=== PATIENT | male | born 1945 | race Caucasian/White ===

== ENCOUNTER 2020-07-05 08:39 | Inpatient (IN) | payer OTHER ==
[~2020-07-05] VITALS: Ht 180.3 cm; Wt 140.4 kg
--- NOTE | ~2020-07-05 | HC ---
[facility] [place] [address] [place] [address] CONSULTATION Name: CARRIE LESTER Room #: 213-P ADM IN M.R.#: [id number] Admission: 07/05/20 Attend Phys: Abdirashid Gardner MD Discharge: Date of : 46 Report #: [id number] THIS REPORT FOR: cc: Monroe Pacheco,Robles Burgos MD ~ CC: Monroe Gardner DATE OF SERVICE: 07/09/2020 REASON FOR CONSULTATION: Sacral wound. ASSESSMENT: Stage 3 sacral pressure ulcer. RECOMMENDATIONS: 1. Thank you for the consultation. I will follow along. 2. Discussed wound care with the wound team. The wound bed is not grossly gangrenous or necrotic and overall looks pretty good. Given that the patient is starting to improve and work with physical therapy, I think it would be best to avoid general anesthesia and the surgery. If the wound worsens or concerns of infection develop, I am happy to debride it if consulting teams feel strongly about that. HISTORY OF PRESENT ILLNESS: The patient is a very pleasant 75-year-old gentleman who was hospitalized at [place] following a prolonged hospitalization elsewhere. The patient developed a sacral ulcer in the process. General Surgery was consulted for evaluation. PAST MEDICAL HISTORY: 1. Recent acute respiratory distress syndrome. 2. Recent COVID-19 pneumonia. 3. Chronic obstructive pulmonary disease. 4. Obesity. 5. Sepsis. 6. Anemia. 7. Hyperlipidemia. 8. Hypokalemia. 9. Obstructive sleep apnea. 10. Hypertension. 11. Coronary artery disease. 12. Deep venous thrombosis. 13. Gastroparesis. 14. History of renal failure. 15. Urinary tract infection. [facility] [address] [place] [address] CONSULTATION Name: CARRIE LESTER Room #: 213-P ADM IN M.Aaron.#: [id number] Admission: 07/05/20 Attend Phys: Abdirashid Gardner MD Discharge: Date of : 46 Report #: [id number] PAST SURGICAL HISTORY: Unobtainable. SOCIAL HISTORY: Unobtainable. FAMILY HISTORY: Unobtainable. REVIEW OF SYSTEMS: Unobtainable. PHYSICAL EXAMINATION: VITAL SIGNS: Temperature 36.7, pulse 79, respiratory rate 18, blood pressure 134/79, pulse ox 96%. GENERAL: No apparent distress, alert. HEENT: PERRLA, EOMI, MMM, NCAT NECK: Supple. No LAD. CARDIOVASCULAR: Regular rhythm and rate. Hemodynamically stable. Normal capillary refill. Regular rhythm and rate. Hemodynamically stable. Normal capillary refill. PULMONARY: Nonlabored. Clear to auscultation bilaterally ABDOMEN: Soft, nontender to palpation, no guarding, no rigidity, no rebound tenderness, no hernias. EXTREMITIES: Calves soft, nontender, no edema. SKIN: The patient has a large sacral wound, stage 3, with a relatively clean wound bed with minimal fibrinous debris and minimal gangrenous tissue. The surrounding skin is clean and dry without erythema or exudate. PSYCHIATRIC: Normal mood and affect Normal mood and affect. NEUROLOGICAL: Grossly intact. CN II-XII grossly intact. MUSCULOSKELETAL: 5/5 strength in upper extremities and lower extremities bilaterally. LYMPHATICS: No cervical, inguinal, or supraclavicular lymphadenopathy. LABORATORY DATA: White blood count 10.3, hemoglobin 9.4, platelets 157. INR 1.1. IMAGING: CT of the pelvis. Impression: Large decubitus wound/ulcer and phlegmon overlying the lower rectum and coccyx as detailed above without definitive osteomyelitis. By: 1530 1704 Robles Steven MD /nt
--- NOTE | ~2020-07-05 | HC ---
[facility] [address] [place] [address] CONSULTATION Name: CARRIE LESTER Room #: [facility] ADM IN M.R.#: [id number] Admission: 07/05/20 Attend Phys: Abdirashid Gardner MD Discharge: Date of : 46 Report #: [id number] THIS REPORT FOR: cc: Monroe Pacheco,Ezequiel Barnes MD ~ CC: Monroe Gardner DATE OF SERVICE: 07/06/2020 INFECTIOUS DISEASE CONSULTATION ATTENDING PHYSICIAN: Dr. Gardner. REASON FOR EVALUATION: Gram-positive cocci, septicemia. HISTORY OF PRESENT ILLNESS: Chart reviewed, patient examined. This is a 75-year-old gentleman with very significant disability, who has actually been ill, dating back to March, he did experience coronavirus illness, became quite sick. He has been essentially bedbound since that time according to him. He then developed decubitus ulcers, apparently has been hospitalized at various places as well. He presented with febrile illness including dyspnea. Influenza antigen testing was negative. He was found to have an elevated lactic acid, which was peaked at 5.4 and blood culture is now positive with Gram-positive cocci and underwent imaging, which results are pending. He ____ lucid. He is normally on baseline oxygen at 2 liters per nasal cannula and 3 liters at night with a CPAP and started on empiric therapy with aztreonam, levofloxacin and vancomycin. Overall, he does state he feels better than his admission. ALLERGIES: BLEACH, PENICILLIN, STATINS, LISINOPRIL, HYDROCODONE, ACETAMINOPHEN, CEFTRIAXONE, ERYTHROMYCIN, MEPERIDINE. CURRENT MEDICATIONS: Include insulin glargine, insulin lispro, vancomycin, Levaquin, montelukast, pantoprazole, apixaban, aztreonam, methylprednisolone, gabapentin, quetiapine, trazodone. PAST MEDICAL HISTORY: As described above, diabetes mellitus type 2, insulin requiring. History of COPD, chronic anemia, hyperlipidemia, obstructive sleep apnea, hypertension, has known vasculopathy, coronary artery disease, previous history of DVT, gastroparesis, renal insufficiency, COVID infection in March of this year. SOCIAL HISTORY: He is , nonsmoker. Occasional ethanol. No illicit drug use. [address] [address] CONSULTATION Name: CARRIE LESTER Room #: 354-P [facility] IN M.R.#: [id number] Admission: 07/05/20 Attend Phys: Abdirashid Gardner MD Discharge: Date of : 46 Report #: [id number] FAMILY HISTORY: Noncontributory. REVIEW OF SYSTEMS: Otherwise, unremarkable 10-point review of systems. PHYSICAL EXAMINATION: GENERAL: Appears chronically ill, undernourished. He is pleasant, cooperative, in deso-tf-tywvxwre distress. VITAL SIGNS: Temperature 97.1, pulse 97, respirations 18, blood pressure 128/76. SKIN: Warm, dry, no rashes. HEENT: Normocephalic. Extraocular muscles intact. NECK: Supple. He has got nasal cannula oxygen in place. LUNGS: Diminished overall, few scattered coarse breath sounds. HEART: Regular. Borderline tachycardic. I do not appreciate a murmur. ABDOMEN: Obese, soft, nontender. There are no peritoneal signs. GENITOURINARY AND RECTAL: Deferred. LABORATORY DATA: As described above, negative coronavirus testing. Lactic acid peaked at 5.4, repeat this morning 3.1. Blood cultures 2/2 with gram-positive cocci, otherwise not more clarified. Urinary antigen for Legionella and pneumococcus were negative. Procalcitonin mildly elevated at 2.14. ABGs: pH 7.463, pCO2 of 32.6, pO2 of 105.6 on 5 liters. CBC: White count of 33.5, H and H 13.6 and 41.6, platelets of 271 and 14% monocytes. Urinalysis; 0-5 white cells. Influenza antigen was negative. ASSESSMENT AND PLAN: Gram-positive cocci, septicemia. The patient is certainly at risk for infection including skin and soft tissue given his wounds as well as a possible pneumonic source, may well be able to define the site based on identification of the organism. He is on reasonable coverage, ____ good Staph and strep coverage, which we expect would be most likely. At this point, he is somewhat improved. We will continue supportive measures including supporting hydration. We will add incentive spirometry. Wound care as prescribed. We will have to med optimize his nutritional status. Maybe, he would benefit from increased physical therapy, etc. Thank you, we will follow. By: 1101 1218 Ezequiel Hilliard MD /nt
[2020-07-05 08:41] VITALS: BP 117/69
[2020-07-05 09:28] LABS: PLATELET COUNT 271 thou/uL (150-400); RBC 4.54 mil/uL (4.50-6.00); URINE BILIRUBIN NEGATIVE (Negative); URINE BLOOD NEGATIVE (Negative); URINE CLARITY CLEAR; URINE COLOR YELLOW; URINE GLUCOSE-RANDOM* TRACE (Negative); URINE KETONES NEGATIVE (Negative); URINE LEUKOCYTES-REFLEX NEGATIVE (Negative); URINE NITRITE-REFLEX NEGATIVE (Negative); URINE PROTEIN (DIPSTICK) 1+ (Negative); URINE UROBILINOGEN 0.2 E.U./dl (0.2-1.0)
[2020-07-05 09:30] LABS: HEMATOCRIT 41.6 % (42.0-52.0); HEMOGLOBIN 13.6 gm/dL (14.0-18.0); MCHC 32.8 g/dL (28.0-37.0); MCV 91.7 fL (80.0-100.0); RDW 17.1 % (10.5-14.5); WBC 33.6 thou/uL (4.0-11.0)
[2020-07-05 09:34] LABS: CALCIUM 9.4 mg/dL (8.5-10.1); CREATININE 1.8 mg/dL (0.7-1.3); POTASSIUM 3.6 mmol/L (3.5-5.1)
[2020-07-05 09:40] LABS: DIRECT BILIRUBIN 0.1 mg/dL (<0.1-0.2); TOTAL BILIRUBIN 0.5 mg/dL (0.2-1.0); TOTAL PROTEIN 7.1 g/dL (6.4-8.2)
[2020-07-05 09:43] LABS: CASTS None Seen /LPF (None Seen); SQUAMOUS 0-3 Few /LPF (0-3)
[2020-07-05 09:44] LABS: BACTERIA-REFLEX None Seen /HPF (None Seen); CRYSTALS None Seen /LPF (None Seen); MUCUS 0-3 Light strn/LPF (None Seen); URINE RBC None Seen /HPF (0-2); URINE WBC-REFLEX 0-5 Rare /HPF (0-5)
[2020-07-05 10:27] LABS: ABSOLUTE NEUTROPHILS 24.9 thou/uL (1.4-8.2); METAMYELOCYTES 1 %
[2020-07-05 10:28] LABS: ANISOCYTOSIS 1+
[2020-07-05 11:20] LABS: BE(vivo) -0.2 mmol/L (-2 to +3); HCO3 22.8 mmol/L (22.0-26.0); PCO2 32.6 mmHg (35.0-45.0); PO2 105.6 mmHg (80.0-100.0); pH 7.463 (7.360-7.450); sO2 98.1 % (92.0-98.0)
[2020-07-05 15:03] VITALS: BP 105/58
[2020-07-05 16:20] VITALS: BP 95/59
[2020-07-05] MEDS ORDERED: ELIQUIS5 MG PO (17:33)
[2020-07-05] MEDS ORDERED: VITAMIN C500 M1 PO (17:34)
[2020-07-05] MEDS ORDERED: ARTIFICIAL TEAR1510 OPHTHALMIC (17:34)
[2020-07-05] MEDS ORDERED: BISACODYL10 MG RECTAL (17:35)
[2020-07-05] MEDS ORDERED: VITAMIN D310 MC3 PO (17:40)
[2020-07-05] MEDS ORDERED: COMBIVENT RESPIM4 GM INH (17:41)
[2020-07-05] MEDS ORDERED: EPIPEN 2-P0.3 MG/0.3 IM (17:43)
[2020-07-05] MEDS ORDERED: FLONASE 0.05%50 MCG NARES (17:44)
[2020-07-05] MEDS ORDERED: FUROSEMIDE 20 M20 M1 PO (17:45)
[2020-07-05] MEDS ORDERED: LASIX 80 MG TAB80 MG PO (17:46)
[2020-07-05] MEDS ORDERED: GABAPENTIN 100100 MG PO (17:47)
[2020-07-05] MEDS ORDERED: GUAIFENESIN200 MG PO (17:48)
[2020-07-05] MEDS ORDERED: LEVEMIR100 UNIT/2 SUBQ (17:49)
[2020-07-05] MEDS ORDERED: LORAZEPAM 0.50.5 MG PO (17:49)
[2020-07-05] MEDS ORDERED: MAGNESIUM250 M1 PO (17:50)
[2020-07-05] MEDS ORDERED: MAGNESIUM400 MG PO (17:51)
[2020-07-05] MEDS ORDERED: MILK OF MA400 MG/5 M PO (17:51)
[2020-07-05] MEDS ORDERED: MIRALAX119 GM PO (17:52)
[2020-07-05] MEDS ORDERED: SINGULAIR 10 MG10 M1 PO (17:53)
[2020-07-05] MEDS ORDERED: SUPER THERAVIT1 EACH PO (17:56)
[2020-07-05] MEDS ORDERED: NITROSTAT0.4 M1 SUBLING (17:57)
[2020-07-05] MEDS ORDERED: NOVOLOG100 UNIT/1 SUBQ (17:59)
--- NOTE | 2020-07-05 18:00 | NUR ---
PT WAS ADMITTED FROM [facility]...HER REPORTS A STAGE 4 SACRAL WOUND...REPORTS HE HAS BEEN BEDRIDDEN FOR ABOUT 2 MONTHS AND WAS POSITIVE FOR COVID 03/2020...
[2020-07-05] MEDS ORDERED: PRAVASTATIN SOD40 MG PO (18:01)
[2020-07-05] MEDS ORDERED: NYSTATIN-TRIAMC15 GM TOP (18:01)
[2020-07-05] MEDS ORDERED: PREDNISONE 5 MG5 M1 PO (18:02)
[2020-07-05] MEDS ORDERED: PROTONIX40 M2 PO (18:03)
[2020-07-05] MEDS ORDERED: SENNA PLUS TAB1 EACH PO (18:03)
[2020-07-05] MEDS ORDERED: SEROQUEL 100 M100 M1 PO (18:04)
[2020-07-05] MEDS ORDERED: SEROQUEL 50 MG50 MG PO (18:04)
[2020-07-05] MEDS ORDERED: TRAMADOL 50 MG50 MG PO (18:06)
[2020-07-05] MEDS ORDERED: TRAZODONE HCL50 MG PO (18:07)
[2020-07-05] MEDS ORDERED: ZINC SULFATE220 MG PO (18:08)
[2020-07-05 20:17] VITALS: BP 126/69
--- NOTE | 2020-07-05 21:47 | NUR ---
PT HAS ALLERGY TO PCN AND DR ORDERED MEDICATION THAT IS IN ALLERGY LIST. PHARMACY NOTIFIED NURSE. NURSE CLARIFIED ALLERGY REACTION WITH PT THROAT SWELLING AND HIVES. PHARMACY NOTIFIED.
--- NOTE | 2020-07-05 22:16 | NUR ---
FSBS READ HI, LAB NOT ABLE TO DRAW ANY LABS DUE TO DIFFICULT STICK, NURSE ATTEMPTING LAB DRAW. PROVIDER CALLED AND UPDATED RE NO LABS AND ELEVATED FSBS. PT IS ALERT AND RESPONDING.
--- NOTE | 2020-07-06 01:15 | NUR ---
PT RESTING IN BED. IVF AND ANTIBIOTIC STARTED. PT COMPLIANT WITH MEDICATIONS. ANSWERS DIRECT QUESTIONS. PT COOL TO THE TOUCH, BUT DECLINED FEELING UNCOMFORTABLE OR WANTING BLANKETS. BED ALARM ON. STAFF ASSISTING WITH REPOSITIONING. PT USING URINAL.
[2020-07-06 05:32] VITALS: BP 149/69
[2020-07-06 07:41] VITALS: BP 128/76
[2020-07-06 11:14] VITALS: BP 108/54
--- NOTE | 2020-07-06 11:43 | NUR ---
CONSULTED TO PLACE A PICC FOR A PATIENT NEEDING ACCESS FOR IV ANTIBIOTICS. ORDER AND CONSENT NOTED. THIS PATIENT DOES HAVE RECENT POSITIVE BLOOD CULTURES, DR ALVAREZ WAS CONSULTED AND APPROVED OF MIDLINE PLACEMENT FOR NOW AND PICC PLACEMENT IS ON HOLD. THE RIGHT UPPER CEPHALIC WAS WIDLEY PATENT BUT UNABLE TO THREAD THE WIRE AFTER MULTIPLE ATTEMPTS. THE RIGHT BASILIC WAS THEN USED TO PLACE THE MIDLINE PER POLICY. LINE WAS TRIMMED TO 15CM AND ADVANCED WITHOUT DIFFICULTY. LABS DRAWN. LINE SECURED AND RELEASED FOR USE
[2020-07-06 14:05] LABS: HEMATOCRIT 33.7 % (42.0-52.0); MCH 29.9 pg (26.0-34.0); MCHC 32.4 g/dL (28.0-37.0); MCV 92.2 fL (80.0-100.0); RBC 3.65 mil/uL (4.50-6.00); RDW 16.9 % (10.5-14.5); WBC 19.7 thou/uL (4.0-11.0)
[2020-07-06 14:18] LABS: ALBUMIN 2.3 g/dL (3.4-5.0); CALCIUM 8.6 mg/dL (8.5-10.1); CREATININE 1.5 mg/dL (0.7-1.3); HEMOGLOBIN 10.9 gm/dL (14.0-18.0); MAGNESIUM 1.7 mg/dL (1.8-2.4); POTASSIUM 3.9 mmol/L (3.5-5.1); TOTAL BILIRUBIN 0.3 mg/dL (0.2-1.0); TOTAL PROTEIN 6.2 g/dL (6.4-8.2)
[2020-07-06 14:19] LABS: APTT 35.5 Seconds (24.5-32.8); FIBRINOGEN 527.9 mg/dL (210-360); INR 1.1; PROTIME 11.4 Seconds (9.3-11.4)
[2020-07-06 15:05] VITALS: BP 121/65
--- NOTE | 2020-07-06 18:52 | NUR ---
RN HAS ASSUMED PT'S CARE AT 0700AM , PT IS A&OX3, PT IS ON O2 2L/MIN/NC, PT'S VS ARE STABLE, PT HAS SOB WITH ACTIVITIES, PT HAS STARTED IV ABX AND ID CONSULTS, PT 'S SACRAL WOUND CARE HAS DONE PER WOUND DR ORDER, BUT PT'S LACTIC ACID IS > 2.0, NEED CHECK PER POTOCOL. PT 'S FIRST COVID TEST WAS NEGATIVE, PT HAS SECOND COVID TEST AT 1630PM PER DR SILVERMAN ORDER.
[2020-07-06 20:37] VITALS: BP 110/53
--- NOTE | 2020-07-07 04:17 | NUR ---
ASSUMED CARE FROM DAY SHIFT PT RESTING WELL THROUGHOUT HOURLY ROUNDS , DRESSING CHANGED PER ORDERED.PT REPOSITIONED TO SIDE TOLERATED WELL. TEST BORE HELPER SHOWS NSR . WILL CONINTINUE WITH CURRENT PLAN OF CARE, WILL REPORT CHANGES OR ABNORMAL FINDING.
[2020-07-07 04:42] VITALS: BP 114/54
[2020-07-07 04:42] LABS: BE(vivo) -1.2 mmol/L (-2 to +3); HCO3 22.8 mmol/L (22.0-26.0); PCO2 35.6 mmHg (35.0-45.0); PO2 98.8 mmHg (80.0-100.0); pH 7.425 (7.360-7.450); sO2 97.7 % (92.0-98.0)
[2020-07-07 05:50] LABS: ABSOLUTE NEUTROPHILS 11.9 thou/uL (1.4-8.2); BASOPHILS 0.1 % (0.0-2.0); HEMOGLOBIN 9.2 gm/dL (14.0-18.0); LYMPHOCYTES 5.3 % (24.0-44.0); MCH 30.4 pg (26.0-34.0); MCHC 32.7 g/dL (28.0-37.0); MCV 92.8 fL (80.0-100.0); PLATELET COUNT 145 thou/uL (150-400); POLYS 92.6 % (36.0-66.0); RBC 3.02 mil/uL (4.50-6.00); RDW 16.4 % (10.5-14.5); WBC 12.9 thou/uL (4.0-11.0)
[2020-07-07 05:55] LABS: ALBUMIN 2.1 g/dL (3.4-5.0); CREATININE 1.2 mg/dL (0.7-1.3); MAGNESIUM 1.7 mg/dL (1.8-2.4); POTASSIUM 4.1 mmol/L (3.5-5.1); TOTAL BILIRUBIN 0.2 mg/dL (0.2-1.0); TOTAL PROTEIN 5.3 g/dL (6.4-8.2)
[2020-07-07 07:43] VITALS: BP 119/62
--- NOTE | 2020-07-07 08:07 | EKG ---
[facility] [place] [address] [place] [address] ELECTROCARDIOGRAM REPORT Name: CARRIE LESTER Room #: 354- ADM IN M.R.#: [id number] Admission: 07/05/20 Attend Phys: Abdirashid Gardner MD Discharge: Date of : 47 Report #: [id number] THIS REPORT FOR: cc: Monroe Pacheco James D. DO Couchonnal, Luis F. MD ~ THIS REPORT FOR: //name// [facility] ED Test Date: 2020-07-05 Test Time: 08:53:59 Pat Name: CARRIE LESTER Department: Room: 354 Gender: M Material Control Associate: [facility] : 1945 Requested By: Abdirashid Gardner Order Number: [id number] MD: Azar Ribeiro Measurements Intervals [place] Rate: 123 P: 62 NH: 143 QRS: 7 QRSD: 87 T: 60 QT: 297 QTc: 425 Interpretive Statements Sinus tachycardia Abnormal R-wave progression, late transition Inferior infarct, old No previous ECG available for comparison Electronically Signed On 07-07-2020 8:06:59 CDT by Azar Ribeiro [email or web address] <ELECTRONICALLY SIGNED> By: Azar Ribeiro MD 07/07/2006 2 0853 Azar Ribeiro MD /EPI
[2020-07-07 11:28] VITALS: BP 124/58
[2020-07-07 16:42] VITALS: BP 149/77
--- NOTE | 2020-07-07 17:24 | NUR ---
PT REPOSITIONED TO KEEP OFF SACRUM...MEDICATED WITH MORPHINE Q4H PRN WITH FAILY GOOD RELIEF
[2020-07-07 19:44] VITALS: BP 113/62
--- NOTE | 2020-07-07 20:46 | NUR ---
SPOKE TO DR. CHRISTIANSON AND PT CAN BE REMOVED FROM ALL ISOLATION AND MOVED TO NON COVID FLOOR.
--- NOTE | 2020-07-07 22:15 | NUR ---
PT ALERT AND ORIENTED X4. VSS . TEMP 37.1. SATS WNL 3LNC. PT/O PAIN TO SACRAL WOUND. PACKED WITH 1/4 STRENGHTH DAKINS ORDERED. MORPHINE 4MG GIVEN PER PT REQUEST PAIN 06/02. HS MEDS GIVEN. PT RESTING QUIETLY ON RIGHT SIDE. . WILL CONTINUE TO MONITOR PT FOR CHANGES. W/C DOME ORDERED. MOISTURE BARRIER TO REDDENED BUTTOCKS. TURNING PT Q 2 HRS.
[2020-07-07 23:15] VITALS: BP 112/57
--- NOTE | 2020-07-08 | NUR ---
VSS . PT REPOSITIONED. NO C/O . NO S/S DISTRESS. WILL CONTINUE TO MONITOR PT FOR CHANGES.
[2020-07-08 02:07] LABS: ABSOLUTE NEUTROPHILS 9.6 thou/uL (1.4-8.2); BASOPHILS 0.1 % (0.0-2.0); HEMATOCRIT 29.1 % (42.0-52.0); HEMOGLOBIN 9.4 gm/dL (14.0-18.0); MCH 30.1 pg (26.0-34.0); MCHC 32.3 g/dL (28.0-37.0); MCV 93.3 fL (80.0-100.0); MONOCYTES 1.6 % (1.0-8.0); PLATELET COUNT 157 thou/uL (150-400); POLYS 93.3 % (36.0-66.0); RBC 3.12 mil/uL (4.50-6.00); WBC 10.3 thou/uL (4.0-11.0)
[2020-07-08 02:11] LABS: CALCIUM 8.1 mg/dL (8.5-10.1); CREATININE 1.3 mg/dL (0.7-1.3); MAGNESIUM 1.7 mg/dL (1.8-2.4); POTASSIUM 4.6 mmol/L (3.5-5.1)
--- NOTE | 2020-07-08 02:44 | NUR ---
SPOKE WITH YA IN PHARMACY. WILL CONTINUE VANCOMYCIN AT SAME DOSE.
[2020-07-08 03:30] VITALS: BP 107/57
--- NOTE | 2020-07-08 06:49 | NUR ---
PT RESTING QUIETLY. VSS. WOUND CARE DONE ORDERED REPOSITIONING HOWEVER PT PREFERS RIGHT SIDE OFF OFF OF BUTTOCKS. STATES HE SLEEPS BETTER.
[2020-07-08 07:03] VITALS: BP 114/52
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
--- NOTE | 2020-07-08 10:58 | NUR ---
INITIAL ASSESSMENT: Received consult. SHANE reviewed chart and spoke with nursing and attending physician. Pt was admitted from [facility] due to hypoxia/pneumonia. Pt placed in Enhanced Isolation to r/o COVID-19. Pt has had two negative COVID tests. Enhanced Isolation precautions have been discontinued. PT/OT to evaluate pt. SHANE place call to pt's room. No answer. SHANE spoke with pt's , Chelsie, via phone. Introduced role of SW. Pt is normally alert/orientated x 4. Pt has been at [facility] for about 3 weeks. Pt was hospitalized at [facility]. Pt has prior COVID positive test on 04/11. Pt was at [facility] briefly after discharged from [facility]. Pt normally lives at home with his and was independent with ADLs. Pt has a cane and was able to ambulate and navigate stairs. Pt's PCP is Dr. Andre Hedrick. SHANE discussed discharge plans with pt's . Pt will not be returning to [facility]. Pt/family interested in [facility] inpt acute rehab. SHANE explained admission criteria for [facility]. Pt's verbalized understanding. SHANE discussed with [facility] vocational rehabilitation counselor. [facility] consult ordered. Awaiting PT eval. SHANE updated [facility] post-acute liaison. SHANE is following to assist as needed with discharge planning.
--- NOTE | 2020-07-08 17:29 | NUR ---
RN HAS ASSUMED PT'S CARE AT 0700AM, PT IS A&OX3, PT IS CONTINUING IV ABX, PAIN MANAGEMENT AND WOUND CARE, PT'S VS ARE STABLE, PT'S BACK AND SACRAL WOUND PAIN CAN CONTROL, PT HAS PT/OT WORKING WITH HIM, PT WAS OFF ISOLATION AT 07/07, PT IS GOING TO CCU FLOOR SOON.RN HAS GIVING REPORT.
[2020-07-08 17:55] VITALS: BP 139/82
[2020-07-08 18:00] VITALS: BP 139/82
--- NOTE | 2020-07-08 19:20 | NUR ---
PT CARE ASSUMED AT 1750. ASSESSMENT CHARTED. MEDICATION CHARTED. TRANSFER FROM . PT IS OBESE WITH LG SACRAL ULCER. PT UTILIZES BEDPAN. MJ MIDLINE. PT IS A HARD STICK. PT TAKES MORPHINE ALTERNATING WITH PERCOCET. DM; ACHS; SCHEDULED NON SS INSULIN. AO X 4.
[2020-07-08 20:30] VITALS: BP 150/59
[2020-07-09 04:44] VITALS: BP 122/47
--- NOTE | 2020-07-09 08:21 | NUR ---
assumed pt care at the change of shift, pt is awake, alert and orientedx4, makes needs known, sr on the monitor, cpap at night, c/o pain of a 8/10 on the back/sacral, pain medications given with partial relief, meds given as ordered, no acute distress noted, passed on report to day nurse
[2020-07-09 08:36] VITALS: BP 166/84
[2020-07-09 12:06] VITALS: BP 134/79
--- NOTE | 2020-07-09 13:36 | NUR ---
Initially understanding patient was accepted to 5N, however Dr Guevara reevaled and patient not a candidate for 5[facility] due to healing of wound prior to home. Discussed with patient who was upset. Sp with also upset. After discussion gave casemgt 2 facilities for post acute care referrals. Requests [facility] [place] enterprise resource planner to send referrals.
[2020-07-09 15:49] VITALS: BP 159/90
--- NOTE | 2020-07-09 17:02 | NUR ---
5[facility] reports they are now accepting. patient and aware. plan 5n once stable.
--- NOTE | 2020-07-09 18:29 | NUR ---
ASSESSMENT DOCUMENTED, VSS AND AFEBRILE. BLOOD GLUCOSE [phone], DR PLEITEZ NOTIFIED AND NEW ORDER RECIEVED. PROGRESSING TOWARDS GOALS AND WILL CONTINUE WITH POC.
[2020-07-09 20:38] VITALS: BP 149/60
--- NOTE | 2020-07-09 23:37 | NUR ---
PT IS ALERT AND ORIENTED X4. PLEASANT. DRESSING CHANGE TO SACRAL AREA WITH DAKINS DONE THIS EVENING WITH MEDS AND TREATMENT. PAIN MEDS GIVEN PRIOR TO DRESSING CHANGE. TUNNELING NOTED USED DAKINS AND KERLIX TO PACK. AND COVER ABD PADS. PT APPEARS TO HAVE GOTTEN RELIEF WITH PAIN MEDS. RESTING WITH CPAP MACHINE ON TONIGHT DURING CARE. LUNGS ARE CL TO COARSE ON LEFT SIDE. ABDOMEN IS ROUND. BOWEL SOUNDS ACTIVE. WILL CONTINUE TO ASSESS AND MONITOR. WILL TRANSFER TO ROOM 455 MED SURG UNIT. REPORT CALLED TO RN TO ASSUME CARE WILL TAKE PT TO FLOOR WITH BELONGINGS.
[2020-07-10 00:39] VITALS: BP 134/66
--- NOTE | 2020-07-10 01:01 | NUR ---
ADMITTED TO THE UNIT AT 0140. PT IS A/O X4. AND CURRENTLY ON BEDREST. NO C/O PAIN OR DISCOMFORT AT THIS TIME BUT SAYS THAT WHEN THE PAIN RETURNS IT USUALLY IS AN 8 OR HIGHER. AT THIS TIME THE DRESSING TO SACRAL WOUND IS C/D/I. PT IS LYING IN HIS BED AND APPEARS TO BE SLEEPING. CPAP IN PLACE AND CONTINOUS PULSE OX IS READING 97% O2. FALL PRECAUTIONS ARE IN PLACE, CALL LIGHT IS WITHIN REACH. WILL CONTINUE TO MONITOR.
[2020-07-10 07:35] VITALS: BP 133/58
[2020-07-10 10:49] LABS: HEMATOCRIT 31.3 % (42.0-52.0); HEMOGLOBIN 10.4 gm/dL (14.0-18.0); MCH 30.6 pg (26.0-34.0); MCHC 33.2 g/dL (28.0-37.0); MCV 92.3 fL (80.0-100.0); RBC 3.39 mil/uL (4.50-6.00); RDW 16.2 % (10.5-14.5); WBC 8.3 thou/uL (4.0-11.0)
--- NOTE | 2020-07-10 12:23 | NUR ---
PT A&OX4, VSS, PAIN LOWER BACK. PAIN MEDICATION GIVEN. IV RIGHT UPPER MIDLINE, PATENT. DRESSING TO SACRUM CHANGED. PATIENT DISCHARGING TODAY TO REHAB 5N. AT BEDSIDE. BARRIER CREAM APPLIED TO BUTTOCKS AND GROIN. PATIENT TURNED. PATIENT 2L NC. NO SIGNS OF DISTRESS. WILL CONTINUE TO MONITOR.
--- NOTE | 2020-07-10 13:10 | NUR ---
CARE TEAM INDICATED THAT PT IS MEDICALLY STABLE TO DISHCARGE TO 5N ACUTE INPATIENT REHAB THIS DAY. CM CALLED AND SPOKE WITH PT AND HIS SPOUSE THEY ARE AWARE AND AGREEABLE. PT GOING TO RM 516. REPORT TO BE CALLED TO . NO OTHER CM INTERVENTION INDICATED. CASE CLOSED.
[2020-07-10] MEDS ORDERED: FLAGYL500 M1 IV (13:35)
[2020-07-10] MEDS ORDERED: AZACTAM 1 GM VIA1 G1 IV (13:35)
[2020-07-10 15:21] VITALS: BP 130/60
[2020-07-11 01:06] LABS: GLYCOHEMOGLOBIN (HGB A1C) 7.7 % (4.8-5.6)
--- NOTE | 2020-07-11 13:24 | HC ---
[facility] [place] [address] CONSULTATION Name: CARRIE LESTER Room #: 455-[facility] IN M.R.#: [id number] Admission: 07/05/20 Attend Phys: Abdirashid Gardner MD Discharge: 07/10/20 Date of : 47 Report #: [id number] THIS REPORT FOR: cc: Monroe Pacheco James D. DO Al-Mubaslat, Ahmad MD ~ CC: Monroe Gardner DATE OF SERVICE: 07/10/2020 ENDOCRINE CONSULTATION NOTE CONSULTING PHYSICIAN: ____ REASON FOR CONSULTATION: Uncontrolled type 2 diabetes mellitus. HISTORY OF PRESENT ILLNESS: This is a 75-year-old male patient whose medical background is rather extensive and is noted for issues of type 2 diabetes mellitus, COPD, obstructive sleep apnea, as well as CAD and hypertension. The patient was admitted on 07/05/2020 with complaints of shortness of breath and evolved into an acute respiratory failure and was admitted for further care and monitoring. The patient believes that he has had diabetes mellitus for at least 12 years. His most recent regimen consisted of Levemir insulin 110 units at night and Humalog insulin 80 units with meals. He reports well controlled blood glucose values that are mostly in the low-to-mid 100 mg/dL range. He has not had major difficulties with hypoglycemia. The patient is not aware of complications including diabetic retinopathy or nephropathy, but does experience rather frequent lower extremity numbness, tingling and burning, which prompts him to utilize gabapentin. He is also known to have coronary artery disease. The patient has a history of hyperlipidemia and is maintained on pravastatin therapy. He is also hypertensive. REVIEW OF SYSTEMS: CONSTITUTIONAL: Fatigue, tiredness. No fever, chills or changes in body weight. HEENT: Negative for sore throat, sinus pain or ear drainage. PULMONARY: Shortness of breath and cough, but no hemoptysis. The patient has baseline difficulties with COPD and obstructive sleep apnea. CARDIAC: Negative for chest pain, palpitations, syncope or presyncope. GASTROINTESTINAL: Negative for abdominal pain, nausea, vomiting or changes in bowel movement frequency. NEUROLOGY: Negative for loss of consciousness, severe frequent headaches or [facility] [address] [place] [address] CONSULTATION Name: CARRIE LESTER Room #: 455-P [facility] IN [facility].#: [id number] Admission: 07/05/20 Attend Phys: Abdirashid Gardner MD Discharge: 07/10/20 Date of : 47 Report #: [id number] seizure activity, but noted for baseline peripheral diabetic neuropathy affecting both lower extremities. Otherwise, review of systems is noncontributory other than those mentioned in HPI. MEDICINE ALLERGIES: 1. ACETAMINOPHEN. 2. BLEACH. 3. CEFTRIAXONE. 4. ERYTHROMYCIN. 5. HYDROCODONE. 6. LISINOPRIL. 7. DEMEROL. 8. PEANUTS. 9. PENICILLINS. 10. STATINS. 11. ASPIRIN. PAST MEDICAL HISTORY: 1. Type 2 diabetes mellitus. 2. Obesity. 3. COPD. 4. Obstructive sleep apnea. 5. Hypertension. 6. Hyperlipidemia. 7. Coronary artery disease. 8. History of DVT. 9. History of gastroparesis. 10. Question of renal insufficiency. OUTPATIENT MEDICATIONS: Include: 1. Eliquis 5 mg b.i.d. 2. Vitamin D3 at 1000 units daily. 3. Combivent. 4. Flonase. 5. Lasix 60 mg daily. 6. Neurontin 300 mg q. 8 hours. 7. Levemir insulin 110 units q.p.m. 8. Lorazepam 0.5 mg q. 6 hours p.r.n. anxiety. 9. Singulair 10 mg daily. 10. Multivitamin daily. 11. ____ units with each meal. 12. Pravastatin 40 mg daily. 13. Prednisone 40 mg daily. 14. Pantoprazole 40 mg daily. 15. Tramadol p.r.n. q. 4 hours. [facility] [address] [place] [address] CONSULTATION Name: CARRIE LESTER Room #: 455-P [facility].#: [id number] Admission: 07/05/20 Attend Phys: Abdirashid Gardner MD Discharge: 07/10/20 Date of : 47 Report #: [id number] 16. Trazodone 100 mg at bedtime. FAMILY HISTORY: Noncontributory. SOCIAL HISTORY: The patient denies use of tobacco, alcohol or illicit drugs. PHYSICAL EXAMINATION: GENERAL: Pleasant male patient lying in bed comfortably, not in apparent distress. VITAL SIGNS: Blood pressure is 133/58 mmHg, heart rate is 77 beats per minute, respiration rate 18 per minute, temperature 36.5 degrees Celsius. CONSTITUTIONAL: The patient is sitting upright in bed, appears comfortable other than the fact that he is a bit tachypneic, wearing a nasal cannula, not in apparent distress. HEENT: Anicteric sclerae. Intact extraocular motions. NECK: Supple, no thyromegaly. CHEST: Noted for diminished air entry bilaterally with scattered rales, coarse breath sounds. Scattered wheezes, no crackles. HEART: Regular rate and rhythm without murmurs or gallops. ABDOMEN: Soft, lax. No guarding. Active bowel sounds. EXTREMITIES: Lower extremity exam is noted for pitting ankle edema bilaterally. No skin breaks or ulcerations. NEUROLOGIC: Awake, alert and oriented to time, place and person. The remainder of his examination is nonfocal other than for peripheral sensory deficits. PSYCHIATRIC: Pleasant, interactive. Normal mood and affect. Normal thought process. LABORATORY RESULTS: Blood glucose values have been as high as 428 mg/dL over the past 72 hours, this morning was at 334 mg/dL, consistently over 300 mg/dL. Sodium 139, potassium 4.6, chloride 106, CO2 of 25, anion gap 8, BUN 28, creatinine 1.3, AST 11, total bilirubin 0.2, direct bilirubin 0.1, calcium 8.1, magnesium 1.7, alkaline phosphatase 37, ALT 22, total protein 5.3, albumin 2.1, EGFR 54, lactic acid 2.1. BNP 629. INR 1.1. White blood count 8.3, hemoglobin 10.4, hematocrit 31.3, platelets 152. Hemoglobin A1c was ordered that is pending. Coronavirus testing was negative. Vitamin D was ordered and is pending. ASSESSMENT AND PLAN: 1. Type 2 diabetes mellitus. As noted above, the patient has severe insulin resistance, which is reflected in his very large daily insulin requirement. To make matters a bit more difficult, the patient presented in acute illness due to respiratory failure and this entailed the utilization of high dose IV glucocorticoid therapy in the form of Solu-Medrol 80 mg q. 8 hours. Blood glucose had been severely elevated. Given his expected diminished p.o. intake compared to his home environment, I will start the patient off with an attenuated insulin regimen consisting of Lantus insulin 50 units at bedtime and [facility] [address] [place] [address] CONSULTATION Name: CARRIE LESTER Room #: 455-P [facility] IN M.R.#: [id number] Admission: 07/05/20 Attend Phys: Abdirashid Gardner MD Discharge: 07/10/20 Date of : 46 Report #: [id number] Humalog insulin 14 units with meals in addition to coverage with Humalog supplemental scale, moderate intensity. Blood glucose monitoring will commence a.c. and at bedtime and further therapeutic adjustments will be made accordingly. 2. Hypertension. The patient's level of blood pressure control is adequate, continue with the current regimen. 3. Hyperlipidemia. The patient is typically maintained on pravastatin therapy. I will initiate therapy with atorvastatin 20 mg at bedtime. 4. Diabetic neuropathy. The patient is typically maintained on gabapentin therapy, he is to resume this when clinically stable. I have reviewed the patient's clinical care notes, laboratory data, and other pertinent clinical information past and present for over 35 minutes in addition to my encounter time with him. I appreciate this consultation by ____. <ELECTRONICALLY SIGNED> By: Lucretia Johnson MD 07/11/20 1324 1230 1334 Lucretia Johnson MD /nt
== END 2020-07-10 16:00 | DRG 871 ==
LOC: ER 08:39 → 3W 12:30 → EROBS 12:30 → 3W 16:09 → 2N 07-08 17:48 → 4W 07-10 00:27
PROVIDERS: Emergency Medicine; Hospitalist; ADMIT Internal Medicine; ATTEND Internal Medicine
PROC: 05HB33Z Insertion of Infusion Device into Right Basilic Vein, Percutaneous Approach (ICD-10-PCS; principal; 2020-07-06)
PROC: 5A09357 Assistance with Respiratory Ventilation, Less than 24 Consecutive Hours, Continuous Positive Airway Pressure (ICD-10-PCS; 2020-07-08)
PROC: 5A09357 Assistance with Respiratory Ventilation, Less than 24 Consecutive Hours, Continuous Positive Airway Pressure (ICD-10-PCS; 2020-07-09)
PROC: 5A09357 Assistance with Respiratory Ventilation, Less than 24 Consecutive Hours, Continuous Positive Airway Pressure (ICD-10-PCS; 2020-07-10)
DX: A40.0 Sepsis due to streptococcus, group A (principal); L89.153 Pressure ulcer of sacral region, stage 3; J96.21 Acute and chronic respiratory failure with hypoxia; E43 Unspecified severe protein-calorie malnutrition; J18.9 Pneumonia, unspecified organism; G93.40 Encephalopathy, unspecified; N17.9 Acute kidney failure, unspecified; G72.81 Critical illness myopathy; A18.01 Tuberculosis of spine; B49 Unspecified mycosis; Z68.41 Body mass index [BMI] 40.0-44.9, adult; J44.9 Chronic obstructive pulmonary disease, unspecified; E78.5 Hyperlipidemia, unspecified; I10 Essential (primary) hypertension; I25.10 Atherosclerotic heart disease of native coronary artery without angina pectoris; G47.33 Obstructive sleep apnea (adult) (pediatric); E66.01 Morbid (severe) obesity due to excess calories; L30.8 Other specified dermatitis; E11.40 Type 2 diabetes mellitus with diabetic neuropathy, unspecified; E11.43 Type 2 diabetes mellitus with diabetic autonomic (poly)neuropathy; E83.42 Hypomagnesemia; D63.8 Anemia in other chronic diseases classified elsewhere; K31.84 Gastroparesis; G47.00 Insomnia, unspecified; Z20.828 Contact with and (suspected) exposure to other viral communicable diseases; N40.0 Benign prostatic hyperplasia without lower urinary tract symptoms; Z86.718 Personal history of other venous thrombosis and embolism; Z88.8 Allergy status to other drugs, medicaments and biological substances; Z88.6 Allergy status to analgesic agent; Z88.1 Allergy status to other antibiotic agents; Z91.010 Allergy to peanuts; Z79.82 Long term (current) use of aspirin; Z79.899 Other long term (current) drug therapy
CPT/HCPCS: 10081; 10879; 27000

== ENCOUNTER 2020-07-10 10:50 | Inpatient (IN) | payer OTHER ==
[~2020-07-10] VITALS: Ht 180.3 cm; Wt 142.8 kg
[~2020-07-10 10:50] MED LIST: ARTIFICIAL TEAR1510 OPHTHALMIC; BISACODYL10 MG RECTAL; COMBIVENT RESPIM4 GM INH; ELIQUIS5 MG PO; EPIPEN 2-P0.3 MG/0.3 IM; FLONASE 0.05%50 MCG NARES; FUROSEMIDE 20 M20 M1 PO; GABAPENTIN 100100 MG PO; GUAIFENESIN200 MG PO; LASIX 80 MG TAB80 MG PO; LEVEMIR100 UNIT/2 SUBQ; LORAZEPAM 0.50.5 MG PO; MAGNESIUM250 M1 PO; MAGNESIUM400 MG PO; MILK OF MA400 MG/5 M PO; MIRALAX119 GM PO; NITROSTAT0.4 M1 SUBLING; NOVOLOG100 UNIT/1 SUBQ; NYSTATIN-TRIAMC15 GM TOP; PRAVASTATIN SOD40 MG PO; PREDNISONE 5 MG5 M1 PO; PROTONIX40 M2 PO; SENNA PLUS TAB1 EACH PO; SEROQUEL 100 M100 M1 PO; SEROQUEL 50 MG50 MG PO; SINGULAIR 10 MG10 M1 PO; SUPER THERAVIT1 EACH PO; TRAMADOL 50 MG50 MG PO; TRAZODONE HCL50 MG PO; VITAMIN C500 M1 PO; VITAMIN D310 MC3 PO; ZINC SULFATE220 MG PO
[2020-07-10] MEDS ORDERED: AZACTAM 1 GM VIA1 G1 IV (13:35)
[2020-07-10] MEDS ORDERED: FLAGYL500 M1 IV (13:35)
--- NOTE | 2020-07-10 15:21 | NUR ---
cm tired visiting with pt x 2 and pc no answer. cm spoke with shannan via phone call. pt came from [facility] but plan is to return home with . have raise ranch, 1 steps then another step into home. the 6 steps up and have 7 steps down but he wont have to do that. has cane, fww and 4ww. was independent prior to skilled rehab at home. manage own medication, drives vehicle. been to [facility] in past per and chart review. will cont following as needed for dc needs.
[2020-07-10 16:10] VITALS: BP 146/77
--- NOTE | 2020-07-10 18:55 | NUR ---
ASSUMED CARE OF PT AT 1600 WHEN PT BROUGHT TO UNIT BY PREVIOUS UNIT NURSE. RECEIVED REPORT FROM JONATHAN GRAMAJO PRIOR TO TRANSPORT. MIDLINE TO RIGHT UPPER ARM. ACCU CHECKS ACHS, CONTACTED ENDOCRINE ABOUT BG >300, NEW ORDERS ENTERED. ADMISSION ASSESSMENT, EDUCATION, VITALS, HEIGHT, AND WEIGHT OBTAINED. CONSULTS CALLED WITH EXCEPTION OF DR MEGHAN MATSON BECAUSE OF AFTER HOURS. CONSENTS SIGNED. FALL PRECAUTIONS IN PLACE AND NURSING WILL CONTINUE TO MONITOR.
[2020-07-10 19:55] VITALS: BP 152/86
--- NOTE | 2020-07-11 05:55 | NUR ---
Patient is alert and oriented x4, pleasant and is able to make his needs known. He arrived at the unit during day shift today, he is on 2L of oxygen via nasal cannula and sleeps at night with a CPAP on 3L of oxygen. Patient did not have any concerns and after his nighttime medications, he rested calmly in bed, with his CPAP on, oxygen and oxygen sensor connected, visual respirations and no signs of distress.
[2020-07-11 05:59] LABS: HEMOGLOBIN 10.3 gm/dL (14.0-18.0); MCH 30.6 pg (26.0-34.0); MCHC 33.3 g/dL (28.0-37.0); MCV 91.9 fL (80.0-100.0); RBC 3.37 mil/uL (4.50-6.00); RDW 16.4 % (10.5-14.5)
[2020-07-11 06:12] LABS: CALCIUM 8.6 mg/dL (8.5-10.1); CREATININE 1.2 mg/dL (0.7-1.3); POTASSIUM 3.4 mmol/L (3.5-5.1)
[2020-07-11 07:57] VITALS: BP 152/75
--- NOTE | 2020-07-11 08:21 | NUR ---
CONTACTED AIDEN SANTOS IN REGARD TO PATIENT'S HOME REGIMEN REGARDING PULMONARY MEDS. PATIENT TAKES ALBUTEROL QID AND SYMBICORT BID. I REQUESTED THAT PATIENT HAVE SOME TREATMENTS ORDERED TO KEEP HIM ON TRACK. HE IS USING THE [facility] BIPAP NOC.
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
--- NOTE | 2020-07-11 14:37 | NUR ---
ASSUMED CARE AT 0700. PATIENT A & O X4. PADTIENT OLSEN'S, REGIONAL EDUCATION MANAGER ARE EQUAL. LUNGS ARE CLEAR. ABD IS SOFT WITH BSX4. UP WITH ASSIST OF 1 STAFF AND GAIT BELT TO W/C FOR BREAKFAST. FALL AND SAFETY PROTOCOLS IN PLACE. C/O PAIN. MEDICATED WITH PRN PAIN MED. CONTINUES TO PROGRESS SLOWLY TOWARDS D/C GOALS. WILL CONTINUE TO MONITER.
--- NOTE | 2020-07-11 17:34 | NUR ---
ASSUMED CARE AT 0700. PATIENT IS ALERT AND ORIENTED X4. PATIENT OLSEN'S, WASTEWATER PROJECT ENGINEER ARE EQUAL. LUNGS ARE DEMINISHED. PATIENT REMAINS ON 02 AT 4L PER N/C. PATIENT GETS RESPIRATORY TX ALSO. ABD IS SOFT WITH BSX4. PATIENT HAD LARGE BM TODAY. PATIENT WAS INCONTINENT OF URINE AND STOOL. PATIENT USES CPAP AT [facility]. PATIENT HAS WOUND CARE TO HIS BOTTOM. PATIENT HAS RASH ON BOTTOM. WOUND CARE TEAM CONSULTED. WOUND CARE DONE TO BOTTOM. FALL AND SAFETY PROTOCOLS IN PLACE. C/O SEVERE PAIN IN HIS BOTTOM. MEDICATED WTIH PRN PAIN MED. PT/OT EVALS DONE TODAY. XRAY OF HI LUMBAR SPINE COMPLETED. WILL CONTINUE TO MONITER.
[2020-07-11 18:50] VITALS: BP 139/70
--- NOTE | 2020-07-12 02:40 | NUR ---
LOW AIR LOSS MATTRESS REPLACED WITH A MORE FUNCTIONAL MODEL. PATIENT TURNED TO SIDE WITH WEDGE TO THORAX. DAKINS DRESSING CHANGE 30 MINUTES AFTER PAIN PILL. MJ MIDLINE DRESSING PATENT FOR ANTIBIOTIC. PATIENT DECLINED OVERNIGHT CPAP BY SAYING IT REALLY WORKED AGAINST HIS SLEEP LAST NOC. USING URINAL WE MAKE SURE IT STAYS WITHIN REACH
[2020-07-12 07:00] VITALS: BP 176/87
--- NOTE | 2020-07-12 19:40 | NUR ---
ASSUMED CARE OF PT AT 0700. PT IS A&OX4 AND VITAL SIGNS ARE STABLE. PT REPORTS PAIN TO BACK AND BUTTOCKS, MANAGED WITH PO MEDICAITONS. PER THERAPY PT BECAME DIZZY AND CLAMMY WHEN STANDING AT BEDSIDE. NURSE ASSESSED FOLLOWING INCIDENT, VITAL SIGNS WNL, HR REGULAR, PT DENIES NAUSEA, BLOOD GLUCOSE WNL. ENCOURAGED PT TO CHANGE POSITION SLOW AND WITH ASSISTANCE. NO FURTHER EPISODES THIS SHIFT. ACCU CHECKS ACHS, INSULIN ADMINISTERED PER ORDERS. WOUND TO SACRUM DRESSIG CHANGED PER ORDERS. RASH NOTED TO BUTTOCKS AND BACK. PT BECAME EMOTIONAL THIS EVENING PRIOR TO SHIFT CHANGE. STATES THAT HE WONDERS WHAT HE DID TO DESERVE WHAT IS HAPPENING, CAN'T UNDERSTAND WHY EVERYTHING IS SO HARD. PT ENCOUARGED TO REST FOR REMAINDER OF NIGHT. FALL PRECAUTIONS IN PLACE AND NURSING WILL CONTINUE TO MONITOR.
[2020-07-12 20:00] VITALS: BP 131/61
--- NOTE | 2020-07-13 07:43 | NUR ---
progress pt able to reposition self [id number] drsg to sacrum c/d/i voiding qs. accuchecks and ssi as ordered, pt requesting multiple snacks through noc. but slept most of shift iv antibiotics administered as ordered lou picc line with good blood return flushes without difficulty contine poc.
[2020-07-13 08:53] VITALS: BP 115/55
--- NOTE | 2020-07-13 19:07 | NUR ---
ASSUMED CARE OF PT AT 0700. PT IS A&OX4 AND VITAL SIGNS ARE STABLE. ACCU CHECKS ACHS, INSULIN ADMINISTERED PER ORDERS. DRESSING TO SACRUM CHANGED PER ORDERS, RASH TO BUTTOCKS AND BACK. RIGHT UPPER ARM MIDLINE PATENT. REPORTS PAIN TO LOW BACK, MANAGED WITH PO MEDICATIONS. FALL PRECAUTIONS IN PLACE AND NURSING WILL COINTIUE TO MONITOR.
[2020-07-13 19:55] VITALS: BP 146/74
--- NOTE | 2020-07-14 04:22 | NUR ---
LOW AIR LOSS MATTRESS THERAPY CONTINUES, WEDGE TO UPPER BACK, DRESSING CHANGE AND INSULINS GIVEN WITH PO MEDS [id number]. PATIENT USING URINAL WITH NO SPILLING TONIGHT. DECLINED CPAP BECAUSE IT SQUEAKS AND HE DOESN'T SLEEP WELL WITH IT. 4L O2 PNC
[2020-07-14 07:30] VITALS: BP 134/68
--- NOTE | 2020-07-14 10:46 | NUR ---
ASSUMED CARE AT 0700. PATIENT IS ALERT AND ORIENTED X4. PATIENT OLSEN'S, JINRIKSHA DRIVER ARE EQUAL. LUNGS ARE DEMINISHED. PATIENT CONTINUS ON 02 AT 3L PER N/C. PATIENT ABD IS SOFT WITH BSX4. PATIENT IS VOIDING SUZANNA COLORED URINE PER URINAL. PATIENT HAS RASH ON HIS BOTTOM. PATIENT HAS PRESSURE WOUND TO HIS COCCYX AREA. DRESSING CHANGED PER PROTOCOL. LIDOCAIN PATCH APPLIED TO HIS BACK. UP IN BED FOR BREAKFAST. FALL AND SAFETY PROTOCOLS IN PLACE. C/O PAIN IN HIS COCCYX AREA. MEDICATED WITH PRN PAIN MED. CONTINUES TO PROGRESS VERY SLOWLY R/T HIS COCCYX WOUND. PATIENT HAS MIDLINE IN HIS RIGHT UPPER ARM FOR IV ABT. PATIENT IS TOLERATING HIS ABT WITHOUT ADVERSE AFFECTS. WILL CONTINUE TO MONITER.
--- NOTE | 2020-07-14 15:16 | H ---
[facility] [address] HISTORY AND PHYSICAL Name: CARRIE LESTER Room #: 516-1 ADM IN M.R.#: [id number] Admission: 07/10/20 Attend Phys: Cuate Guevara MD Discharge: Date of : 46 Report #: [id number] THIS REPORT FOR: cc: Monroe Pacheco,Cuate Rios MD ~ CC: Cuate Pacheco DATE OF SERVICE: 07/10/2020 HISTORY AND PHYSICAL AND POST-ADMISSION PHYSICIAN EVALUATION HISTORY OF PRESENT ILLNESS: The patient is a 75-year-old white male who was originally admitted to [facility] on 07/10/2020 with worsening of his sacral wound and acute respiratory failure with sepsis. The patient has a long history of prior hospitalizations including [facility]. He had worsening of his respirations and his large sacral wound with resultant admission. He had been at [facility] for about 3 weeks. The patient has not been ambulatory for approximately 9 weeks. He has a large decubitus ulcer with phlegmon of his sacrum. He was treated for acute respiratory failure with sepsis. The sacral wound was felt to be the source. He was found to have bacteremia. Dr. Donald notes group A strep bacteremia with sepsis, overall improved. He was noted to be suspecting the source is from the sacral wound and soft tissue phlegmonous area/early abscess. He also has morbid obesity, COPD and obstructive sleep apnea. He has now been admitted for acute in-hospital inpatient rehabilitation. Please see the admission documentation. PAST MEDICAL HISTORY: As noted, history of hypertension, heart disease, renal disease, exogenous obesity. MEDICATIONS: Per the MAR. ALLERGIES: HE HAS MULTIPLE ALLERGIES, as documented. SOCIAL HISTORY: Prior to March, he had been independent with ADLs. was assisting with IADLs. He used a single point cane. He has zero stairs to enter his home and then a split level house, 7 steps up. He apparently was on disability for previous injuries. REVIEW OF SYSTEMS: His main complaint today is generalized low back pain. He does not think it is due to his large sacral ulcer. Denies any focal radiation down either lower extremity. No chest pain, shortness of breath, or abdominal discomfort. He does get short of breath with increased activity. Complains of some overall generalized weakness. No other skin concerns other than his large [facility] [address] [place] [address] HISTORY AND PHYSICAL Name: CARRIE LESTER Room #: 516-1 [facility] IN [facility]#: [id number] Admission: 07/10/20 Attend Phys: Cuate Guevara MD Discharge: Date of : 46 Report #: [id number] pressure ulcer. Strength in the lower extremities is probably a grade 3+ to 4-. ASSESSMENT: A 75-year-old white male with the following problem list: 1. Critical illness myopathy. 2. Medical complexity with generalized debilitation. 3. Sepsis with bacteremia. 4. Large decubitus ulcer of his sacrum. He does have a dressing in place over this and upon examining, there was a large area, which is being packed as per wound care. 5. Respiratory failure, he is on nasal prong O2. 6. Chronic obstructive pulmonary disease. 7. Obstructive sleep apnea. 8. Obesity. 9. Diabetes mellitus type 2. 10. Low back pain. PLAN: Originally, I did not think that this patient had the tolerance or ability for an acute inpatient rehab level, but prior to transfer he was able to get up with physical therapy and actually get on his feet and he ambulated 6 feet min assist. He is having low back pain today and a lumbar spine x-ray is ordered. He has already had a CT of the pelvis for assessment of the large sacral pressure ulcer. From a post-admission physician evaluation perspective, there are no relevant changes since the preadmission screening. Please see the above review of prior and current medical and functional conditions and comorbidities. Please see the patient's previous and current functional status. As far as risk of complications, the patient has multiple medical comorbidities as noted above. Initial plan of care involves the interdisciplinary acute inpatient rehabilitation program. Measurable functional goals would be for the patient to become modified independent with transfers, mobility and ADLs that he can hopefully return back to his prior living situation. Prognosis is reasonably good with estimated length of stay probably at least 2 weeks. Potential barriers would include his multiple medical comorbidities, his large sacral pressure ulcer and his decreased functional status. The patient meets diagnostic criteria for an acute in-hospital inpatient rehabilitation stay. He meets the medical necessity criteria. He does have the tolerance for therapies and has appropriate discharge goals back to the home setting. <ELECTRONICALLY SIGNED> By: Cuate Guevara MD 07/14/20 1516 1347 [id number] Cuate Guevara MD /nt
[2020-07-14 19:40] VITALS: BP 125/65
--- NOTE | 2020-07-15 01:38 | NUR ---
PATIENT TURNED EVERY TWO HOURS, STATES PAIN IS WORST THAT HE HAS HAD SINCE ARRIVAL TO US LAST WEEK. TRAMADOL FOR PAIN BETWEEN DOSES OF PERCOCET DID NOT IMPROVE PAIN. DRESSING CHANGE REDONE AND WOUND INSPECTED. CALL TO SAIMA WOLFE TO EXPLAIN SITUATION. PATIENT USING URINAL AND HAS BEEN CONTINENT SO FAR THIS SHIFT. SIPS OF WATER WITH KIERA CRACKERS AFTER INSULINS GIVEN AT HS.
[2020-07-15 06:09] LABS: HEMATOCRIT 31.3 % (42.0-52.0); HEMOGLOBIN 10.4 gm/dL (14.0-18.0); MCH 30.7 pg (26.0-34.0); MCHC 33.3 g/dL (28.0-37.0); MCV 92.1 fL (80.0-100.0); PLATELET COUNT 178 thou/uL (150-400)
[2020-07-15 06:13] LABS: CALCIUM 8.7 mg/dL (8.5-10.1); CREATININE 0.9 mg/dL (0.7-1.3); MAGNESIUM 1.5 mg/dL (1.8-2.4); POTASSIUM 3.8 mmol/L (3.5-5.1)
[2020-07-15 07:15] VITALS: BP 114/60
[2020-07-15 07:36] LABS: METAMYELOCYTES 1 %
[2020-07-15 07:37] LABS: ANISOCYTOSIS 1+
--- NOTE | 2020-07-15 09:59 | NUR ---
LATE ENTRY 07/11: TOILET TRANSFER WAS MAX ASSIST X 3, OR TOTAL ASSIST TO AND FROM USING THE TRANSFER BOARD.
--- NOTE | 2020-07-15 13:37 | NUR ---
team meeting, reccommendation: going to have ct of lumbar today. limit sitting rt wound. allot of pain. re team with goal of 07/29. on iv abx. wound care.
--- NOTE | 2020-07-15 15:46 | NUR ---
I have reviewed the documentation by JIMY MATHEW from 07/15/20 to 07/15/20 and I concur with it. CHIP GONZALEZ, PT, DPT
--- NOTE | 2020-07-15 18:14 | NUR ---
PT ALERT AND ORIENTED TIMES FOUR. VSS, PT C/O PAIN PRN PAIN MEDICATIONS GIVEN WITH GOOD RELEIF. SACRAL WOUND DRESSING CHANGED. PT TOLERATES MEDS AND MEALS. PT WORKED WELL WITH PT/OT. PT SLOWLY PROGRESSING TOWRADS POC GOALS.
[2020-07-15 19:54] VITALS: BP 123/61
--- NOTE | 2020-07-16 01:11 | NUR ---
PT ALERT AND ORIENTED X 4. 02 ON AT 3L PER NC. REFUSED CPAP. RIGHT MIDLINE IV PATENT. IV ANTIBIOTICS GIVEN ORDERED. BUTTOCKS DRESSING C/D/I. PT C/O PAIN IN HIS BACK. OXYCODONE GIVEN AT HS. BLOOD SUGAR 294 AT HS. INSULIN GIVEN ORDERED. BED ALARM ON FOR SAFETY. PT APPEARS TO BE SLEEPING ON HOURLY ROUNDS.
[2020-07-16 08:00] VITALS: BP 153/77
--- NOTE | 2020-07-16 09:49 | NUR ---
ASSUMED CARE AT 0700. PATIENT IS ALERT AND ORIENTED X4. PATIENT OLSEN'S, AUTOMATIC OVEN OPERATOR ARE EQUAL. LUNGS ARE DEMINISHED. PATIENT CONTINUES ON 02 AT 3L PER N/C. PATIENT CONTINUES ON RESPIRATORY TX ORDERED. PATINENT WAS UP IN THE W/C FOR BREAKFAST. DRESSSING TO COCCYX AREA CHANGED BY NOC NURSE. PATIENT CONTINUES ON IV ABT. PATIENT HAS MIDLINE THAT IS PATENT AND INTACT WITHOUT REDNESS OR SWELLING. UP IN W/C FOR BREAKFAST. FALL AND SAFETY PROTOCOLS IN PLACE. C/O PAIN IN HIS COCCYX AREA. CONTINUES TO PROGRESS TOWARDS D/C GOALS. WILL CONTINUE TO MONITER.
--- NOTE | 2020-07-16 16:15 | NUR ---
I have reviewed the documentation by JIMY MATHEW from 07/16/20 to 07/16/20 and I concur with it. CHIP GONZALEZ, PT, DPT
[2020-07-16 19:18] VITALS: BP 116/57
--- NOTE | 2020-07-17 01:18 | NUR ---
PT ALERT AND ORIENTED X 4. VOIDING CLEAR YELLOW URINE PER URINAL. ALSO INCONT OF URINE AT TIMES. RIGHT MIDLINE IV INTACT AND PATENT. STARTED ON CLINDAMYCIN TONIGHT. BLOOD SUGAR 250 AT HS. INSULIN GIVEN ORDERED. COCCYX DRESSING C/D/I. PT DENIES PAIN OR DISCOMFORT. BED ALARM ON FOR SAFETY. PT APPEARS TO BE SLEEPING ON HOURLY ROUNDS.
[2020-07-17 08:00] VITALS: BP 123/57
--- NOTE | 2020-07-17 15:06 | NUR ---
ASSUMED CARE OF PT AT 0700. PT IS A&OX4 AND VITAL SIGNS ARE STABLE. PT REPORTS PAIN TO LOW BACK, MANAGED WITH PO MEDICATIONS. ACCU CHECKS ACHS. SACRUM WOUND PHOTOGRAPHED AND DRESSING CHANGED PER ORDERS. PT ON ROOM AIR AT THIS TIME. IV ACCESS TO RIGHT UPPER ARM. IV ABX ADMINISTERED PER ORDERS. RASH TO BUTTOCKS NOTED AND ORDERED OINTMENT APPLIED, NOTED IMPROVEMENT SINCE WEEKEND. FALL PRECAUTIONS IN PLACE AND NURING WILL CONTINUE TO MONITOR.
[2020-07-17 19:59] VITALS: BP 131/72
--- NOTE | 2020-07-18 02:42 | NUR ---
ASSUMED PT CARE AROUND 1930. AXOX4. VSS. MJ MIDLINE INTACT. NO S/S ACUTE DISTRESS NOTED OR REPORTED AT THIS TIME. WILL CONT TO MONITOR FOR ANY CHANGES IN CONDITION.
[2020-07-18 08:00] VITALS: BP 110/68
--- NOTE | 2020-07-18 15:35 | NUR ---
ASSUMED CARE OF PT AT 0700. PT IS A&OX4 AND VITAL SIGNS ARE STABLE. PT REPORTS PAIN TO BACK, MANAGED WITH PO MEDICATIONS. PT PARTICIAPTED IN SCHEDULED THERAPIES. SOUND TO SACRUM, DRESSING CHANGED PER ORDERS. MIDLINE IV TO RIGHT UPPER ARM FOR ABX INFUSION. ACCU CHECKS ACHS. PT INCONTINENT IN BED, ENCOUARGED TO CALL AND USE TOILET OR BEDSIDE COMMODE. PT STATES THAT IT IS EASIER FOR HIM TO USE BEDPAN. FALL PRECAUTIONS IN PLACE AND NURSING WILL CONTINUE TO MONITOR.
[2020-07-18 19:59] VITALS: BP 127/67
[2020-07-19 08:00] VITALS: BP 117/67
--- NOTE | 2020-07-19 11:00 | NUR ---
ASSUMED CARE AT 0700. PATIENT IS ALERT AND ORIENTED X4. PATIENT OLSEN'S, CASINO ENFORCEMENT AGENT ARE EQUAL. LUNGS ARE DEMINISHED. PATIENT HAS MIDLINE IN HIS RIGHT AC. PATIENT CONTINUES ON ABT WITHOUT ADVERSE AFFECTS. CONTINUES TO VOID SUZANNA COLORED URINE PER URINAL. PATIENT SACRAL WOUND TO HIS COCCYX. DRESSING CHANGED ACCORDING TO PROTOCOL. FALL AND SAFETY PROTOCOLS IN PLACE. C/O BACK PAIN AND COCCYX PAIN. MEDICATED WITH LIDOCAIN PATCHES AND PRN PAIN MED. PATIENT CONTINUES TO PROGRESS TOWARDS D/C GOALS. WILL CONTINUE TO MONITER.
[2020-07-19 20:01] VITALS: BP 136/83
[2020-07-20 08:19] VITALS: BP 150/78
--- NOTE | 2020-07-20 10:21 | NUR ---
ASSUMED CARE AT 0700. PATIENT IS ALERT AND ORIENTED X4. PATIENT OLSEN'S, BRICK YARD HAND ARE EQUAL. LUNGS ARE COARSE AND DEMINISHED. ABD IS SOFT WITH BSX4. CONTINUES TO VOID PER URINAL, SUZANNA COLORED URINE. UP ON SIDE OF BED FOR BREAKFAST. FALL AND SAFETY PROTOCOLS IN PLACE. C/O PAIN IN HIS LOWER BACK. MEDICATED WITH SCED LIDOCAINE PATCHS X2. DRESSING TO COCCYX CHANGED ACCORDING TO PROTOCOL. PATIENT IS TURNED Q 2 HOURS. PATIENT AHS MIDLINE FOR ABT. NO ADVERSE AFFECTS NOTED. WILL CONTINUE TO MONIITER.
--- NOTE | 2020-07-20 16:54 | HC ---
[facility] [place] [address] CONSULTATION Name: CARRIE LESTER Room #: 516-1 ADM IN M.R.#: [id number] Admission: 07/10/20 Attend Phys: Cuate Guevara MD Discharge: Date of : 47 Report #: [id number] THIS REPORT FOR: cc: Monroe Pacheco,Randy Millan. PhD ~ CC: Cuate Pacheco DATE OF SERVICE: 07/13/2020 NEUROBEHAVIORAL STATUS EXAM ATTENDING PHYSICIAN: Cuate Guevara MD PHARMACY SERVICE ASSOCIATE: Randy Machado, PhD CLINICAL PRESENTATION: The patient is a 75-year-old white male admitted to the [facility] on 07/10/2020 with worsening of his sacral wound and acute respiratory failure with sepsis. He has a longstanding history of prior hospitalizations. The patient, prior to his admission at the rehabilitation unit, had not been ambulatory for approximately 9 weeks and has a large decubitus ulcer on his sacrum. A strep bacteremia with sepsis was diagnosed that has improved. PAST MEDICAL HISTORY: Includes morbid obesity, COPD, hypertension, heart disease, renal disease, and obstructive sleep apnea. His assessment on admission to the rehabilitation unit is critical illness myopathy, medical complexity with generalized debilitation, sepsis with bacteremia, large decubitus ulcer on his sacrum, respiratory failure, chronic obstructive pulmonary disease, obstructive sleep apnea, obesity, diabetes mellitus type 2, and low back pain. A complete description of his medical condition and history can be found in his medical record. Neuropsychological consultation was requested to provide assistance in the assessment of mood and behavior and to provide recommendations and services as needed. The patient is reported to have been living independently prior to this prolonged hospitalization. He is a [place] . It is his second marriage. He has 2 stepchildren and 2 biological children. 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 The patient went on social security disability because of multiple medical problems. TECHNIQUES UTILIZED: Clinical interview, review of medical records, staff consultation and behavioral observation, mini mental status exam 2 standard version, and clock drawing. [facility] [address] [place] [address] CONSULTATION Name: CARRIE LESTER Room #: 516-1 [facility] IN ..#: [id number] Admission: 07/10/20 Attend Phys: Cuate Guevara MD Discharge: Date of : 47 Report #: [id number] EXAMINATION FINDINGS: The patient was pleasant and cooperative with the assessment. He does not report auditory or visual hallucinations. There is no evidence of expressive or receptive aphasia. He describes an awareness of events surrounding his hospitalization. He describes a period of disorientation and confusion during his initial treatment. The patient was talkative and tangential during the interview. He does not report problems with appetite, memory or word finding. He does have some awakening during the night. Subjective anxiety and depression are reported. His performance on the MMSE 2 brief version was extremely low with a raw score of 11/16. He was 3/3 for initial registration, 5/5 for orientation to time, 3/[address] and 0/3 for immediate recall of 3 items after a brief time delay and distraction. Performance on the MMSE 2 standard version was very low with a raw score of 21/30 and a T score of 26, which is at the first percentile. He was 1/5 for serial sevens, 2/2 for naming, 1/1 for repetition, 3/3 for auditory comprehension. He could read and follow a single command. The patient was able to write a sentence and copy a simple geometric design. Clock drawings are within normal limits. The patient is presenting with some diminished immediate recall and difficulty with sustained concentration. Sepsis and the nature of his hospitalization with acute respiratory distress may have contributed to variability in cognitive functioning. DIAGNOSTIC IMPRESSION: Mild neurocognitive disorder, unspecified, without behavior disorder. Adjustment disorder with anxiety and depressed mood. RECOMMENDATIONS: The patient may benefit from more thorough neuropsychological assessment upon resolution of his current medical condition and return home. Assistance will likely be needed for the management of medication, finances, and nutrition. Verbal reassurance along with praise and complements about participation in therapies will be of benefit. Helping the patient see progress in his ability to be more independent would also improve his sense of optimism and hope. Additionally, reducing as medically appropriate medication with sedating features will be of benefit in improving cognitive functioning. [address] [address] CONSULTATION Name: CARRIE LESTER Room #: 516-1 ADM IN M.R.#: [id number] Admission: 07/10/20 Attend Phys: Cuate Guevara MD Discharge: Date of : 47 Report #: [id number] Thank you very much for allowing me to provide a consultation on this patient. <ELECTRONICALLY SIGNED> By: Randy Machado, PhD 07/20/20 1654 [id number] Randy Machado, PhD /nt
[2020-07-20 19:58] VITALS: BP 126/62
--- NOTE | 2020-07-21 05:21 | NUR ---
Patient is alert and oriented x4, some heavy breathing and wheezing, and is on 2L oxygen via nasal cannula. He has no reactions to his IV antibiotics and is able to eat and drink with no complications or complaints of nausea and vomiting. His bed time blood sugar was high, but he received his sliding scale and regular insulin. patient remains in his room, resting with eyes closed, breathing normally with no signs of distress.
[2020-07-21 05:37] LABS: ABSOLUTE NEUTROPHILS 5.8 thou/uL (1.4-8.2); BASOPHILS 0.6 % (0.0-2.0); HEMATOCRIT 33.4 % (42.0-52.0); HEMOGLOBIN 11.1 gm/dL (14.0-18.0); LYMPHOCYTES 28.3 % (24.0-44.0); MCH 30.4 pg (26.0-34.0); MCHC 33.3 g/dL (28.0-37.0); MCV 91.4 fL (80.0-100.0); MONOCYTES 6.8 % (1.0-8.0); PLATELET COUNT 212 thou/uL (150-400); POLYS 63.3 % (36.0-66.0); RBC 3.66 mil/uL (4.50-6.00); RDW 16.6 % (10.5-14.5); WBC 9.2 thou/uL (4.0-11.0)
[2020-07-21 05:46] LABS: CALCIUM 9.2 mg/dL (8.5-10.1); MAGNESIUM 1.7 mg/dL (1.8-2.4); POTASSIUM 3.6 mmol/L (3.5-5.1)
[2020-07-21 08:00] VITALS: BP 126/76
--- NOTE | 2020-07-21 15:00 | NUR ---
ASSUMED CARE AT 0700. PT STATED NO UNEVENTFUL NIGHT AND SLEPT FAIRLY WELL. PT MEDICATED WITH PAIN MEDS AND ANTI ANXIETY MEDS PRIOR TO THERAPY. PARTICIPATED WITH THERAPY AND PROGRESSING TOWARDS GOAL. APPETITE GOOD AND ATE 100% OF HIS MEAL. HE RECEIVED INSULIN FOR LUNCH AND DINNER. PT COMPLAINED OF BLE TENDER TO TOUCH AND SWOLLEN. PT WENT DOWN FOR US DOPPPLER TO BOTH LEGS TO RULE OUT DVT. WAS HERE TO TRAIN ON WOUND DRESSING AND DR RAMOS NURSE COMPLETED TASK AND EDUCATED . IV ANTIBIOTICS GIVEN AND COMPLETED. PLAN FOR DISCHARGE HOME NEXT WEEK WITH . WILL CONT TO MONITOR.
--- NOTE | 2020-07-21 16:27 | NUR ---
I have reviewed the documentation by JIMY MATHEW from 07/21/20 to 07/21/20 and I concur with it. CHIP GONZALEZ, PT, DPT
[2020-07-21 20:25] VITALS: BP 129/67
--- NOTE | 2020-07-22 04:17 | NUR ---
assumed care approx 1900 evening 07/21. pt lying in bed at change of shift dozing off and on. pt awoke to take hs meds. pt alert and oriented x4, appropriate and cooperative. pt voiding per urinal. pt appears to be sleeping soundly with hourly rounding. bed alarm on and call light in reach. will continue to monitor.
[2020-07-22 07:29] VITALS: BP 139/73
--- NOTE | 2020-07-22 12:56 | NUR ---
team meeting, reccommendation: getting doppler, implusive. possible iv abx for home. been in and had training on wound care and will need to training. dc 07/29 with [facility] ( pt, ot ,st, nursing). possible will need wheel chair and bermeo coushion. bedside nurse to check with ID MD about possible needing home iv abx
--- NOTE | 2020-07-22 16:04 | NUR ---
I have reviewed the documentation by JIMY MATHEW from 07/22/20 to 07/22/20 and I concur with it. CHIP GONZALEZ, PT, DPT
--- NOTE | 2020-07-22 17:12 | NUR ---
ASSUMED CARE AT 0700. PT IS COMPLAINED OF LOWER BACK PAIN AND WAS MEDICATED WITH TRAMADOL AND HIS PAIN PATCH WAS PLACED EARLIER IN THE MORNING BY THE NOC RN. PT GETS ANXIOUS WITH THERAPY OR GETTING UP. HE SLEPT WELL LAST NIGHT. PARTICIPATED WELL WITH THERAPY AND PROGRESSING TOWARDS GOAL. PLAN FOR DISCHARGE ON 07/29 WITH HH. DRESSING TO BACK DONE THIS EVENING. BLOOD SUGAR WITHIN 130-200 AND INSULIN GIVEN. PT IS UP WITH ASSIST WITH A WALKER AND GAIT BELT. CONT TO MONITOR.
[2020-07-22 19:10] VITALS: BP 122/76
--- NOTE | 2020-07-23 03:20 | NUR ---
Assumed care of patient this pm shift. Patient calm and cooperative. Patient medication adherent and takes medications whole with thin fluids. Patient states that he has anxiety and this was addressed with clonazepam. Patient is currently sleeping. Patients states that he has pain rated 8-9. Pain medication was given and patient fell asleep. Patients assessment shows no signs of acute distress. Vital signs stable. We will continue to monitor per hospital policy.
[2020-07-23 07:30] VITALS: BP 133/71
--- NOTE | 2020-07-23 11:00 | NUR ---
ASSUMED CARE AT 0700. PATIENT IS ALERT AND ORIENTED X4. PATIENT OLSEN'S, LEAF TINNER ARE EQUAL. LUNGS AER COARSE AND DEMINISHED. ABD IS SOFT WITH BSX4. PATIENT IS UP WITH ASSIST OF 1-2 WITH GAIT BELT AND WALKER. PATIENT DRESSING CHANGED TO HIS BOTTOM ACCORDING TO PROTOCOL. MIDLINE IS IN HIS RIGHT AC. PATIENT CONTINUES ON ABT. ABT IS BEING TOLERATED WITHOUT ADVERSE AFFECTS. FALL AND SAFETY PROTOCOLS IN PLACE. C/O PAIN IN HIS BACK AND BOTTOM. MEDICATED WTIH PRN PAIN MED. CONTINUES TO PROGRESS TOWARDS D/C GOALS. WILL CONTINUE TO MONITER.
--- NOTE | 2020-07-23 14:01 | NUR ---
cm notified by bedside nurse that ID MD will see if need to cont iv abx at home and if so will document. cm will cont following as needed for dc needs. is going to come in for therapy training and wound care training. will cont following as needed for dc needs.
--- NOTE | 2020-07-23 15:10 | PLAN ---
[facility] [place] [address] REHAB UNIT PLAN OF CARE Name: CARRIE LESTER Room #: 516-1 ADM IN M.R.#: [id number] Admission: 07/10/20 Attend Phys: Cuate Guevara MD Discharge: Date of : 47 Report #: [id number] THIS REPORT FOR: //name// CC: Cuate Pacheco DATE OF SERVICE: 07/12/2020 PROGRESS NOTE/OVERALL PLAN OF CARE SUBJECTIVE: The patient is seen back in followup. He has had problems with the low back pain, which has been significant for him. X-rays of the lumbar spine were negative. Appreciate Dr. Donald's assistance and note that MRI has been ordered for his lumbosacral area. Afebrile, vital signs are stable. He is on nasal prong O2. He is max assist to try to come to stand. He has been able to ambulate here on rehabilitation, but he has done some limited standing. In occupational therapy, lower body dressing is dependent. Upper body is standby assistance. ASSESSMENT: A 75-year-old male with the following problem list: 1. Critical illness myopathy. 2. Medical complexity with generalized debilitation. 3. Sepsis with bacteremia. 4. Large decubitus ulcer, sacrum with Layman. 5. Acute respiratory failure. 6. Chronic obstructive pulmonary disease. 7. Obstructive sleep apnea. 8. Obesity. 9. Type 2 diabetes mellitus. 10. Hypertension. 11. Protein-calorie malnutrition. 12. Low back pain with MRI scan pending. PLAN: The overall plan of care is based on the preadmission screen, post-admission physician evaluation and information garnered from therapy assessments. 1. Estimated length of stay is probably going to be at least 2 weeks and likely longer as he is at a lower functional level and has significant multiple medical comorbidities. 2. Medical prognosis is reasonably good. 3. Anticipated interventions includes the interdisciplinary acute inpatient rehabilitation program. 4. Anticipated functional outcomes would be for the patient to hopefully and to improve as far as basic transfers and short distance, mobility and gait, so we can get him back home. He will need to be able to go up and down some steps, but he appears to have a potential for this. [facility] [address] [place] [address] REHAB UNIT PLAN OF CARE Name: CARRIE LESTER Room #: 516-1 ADM IN .R.#: [id number] Admission: 07/10/20 Attend Phys: Cuate Guevara MD Discharge: Date of : 47 Report #: [id number]. Discharge destination would be back home with . 6. Expected therapy by discipline includes PT and OT 1-1/2 hours per day each five days a week throughout the duration of the acute inpatient rehabilitation stay. <ELECTRONICALLY SIGNED> By: Cuate Guevara MD 07/23/20 1510 [id number] Cuate Guevara MD /nt
--- NOTE | 2020-07-23 15:42 | NUR ---
I have reviewed the documentation by JIMY MATHEW from 07/23/20 to 07/23/20 and I concur with it. CHIP GONZALEZ, PT, DPT
[2020-07-23 19:55] VITALS: BP 112/67
--- NOTE | 2020-07-24 03:24 | NUR ---
assumed care approx 1900 evening 07/23. pt lying in bed with head of bed elevated at change of shift. pt pleasant and cooperative stating he had a good day.pt took hs meds with water tolerating well. pt appears to be sleeping soundly with hourly rounding checks. bed alarm on and call light in reach. will continue to monitor.
[2020-07-24 08:00] VITALS: BP 119/54
--- NOTE | 2020-07-24 11:10 | NUR ---
ASSUMED CARE AT 0700. PATIENT IS ALERT AND ORIENTED X4. PATIENT OLSEN'S., COAL GETTER ARE EQUAL. LUNGS ARE COARSE AND DEMINISHED. ABD IS SOFT WITH BSX4. VOIDING SUZANNA COLORED URINE PER URINAL. DRESSING CHANGED TO HIS COCCYX ACCORDING TO PROTOCOL. PATIENT HAS MIDLINE FOR IV ABT. TOLERATING IV ABT WITHOUT ADVERSE AFFECCTS. FALL AND SAFETY PROTOCOLS IN PLACE. C/O PAIN IN HIS LOWER BACK AND COCCYX AREA. MEDICATED WITH PRN PAIN MED, AND SCED LIDOCAINE PATCHES. CONTINUES TO PROGESS SLOWLY TOWARDS D/C GOALS. WILL CONTINUE TO MONITER.
--- NOTE | 2020-07-24 11:54 | NUR ---
FAXED REFERRAL TO [facility] SPOKE WITH JEREMY IN INTAKE THEY CAN ACCEPT WOULD LIKE TO KNOW WAY IN ADVANCE IF PT WILL DC WITH IV ABX SO THEY CAN STAFF ACCORDINGLY. ANTICIPATE DC 07/29.
[2020-07-24 11:55] VITALS: BP 119/54
[2020-07-24 19:51] VITALS: BP 92/35
--- NOTE | 2020-07-25 01:52 | NUR ---
ASSUMED CARE OF PT AT 1915 ON 07/24/20. PT IS A&OX4. IS ON 3L OF O2/NC. IS STABLE. REPORTS BACK PAIN THAT IS BEING MANAGED WITH ORAL PAIN MEDS & OTHER THERAPUETIC TECHNIQUES. IS UP WITH ASSIST OF 1, ATIF, WALKER. FALL PRECUATIONS & HOURLY ROUNDING CONTINUED THIS SHIFT. LABS & VITALS REVIEWED. PT HAS SACRAL WOUND. DRSG C/D/I. HAS ACCU CHECKS ACHS WITH LOW DOSE SS INSULIN. PT IS CURRENTLY SLEEPING. CALL LIGHT WITHIN REACH. PT IS ABLE TO TURN SELF IN BED. MAY REQUIRE SOME ASSISTANCE. REMINIDERS GIVEN. WILL CONTINUE TO MONITOR.
[2020-07-25 07:20] VITALS: BP 115/69
--- NOTE | 2020-07-25 08:17 | NUR ---
I have reviewed the documentation by JIMY MATHEW from 07/24/20 to 07/24/20 and I concur with it. CHIP GONZALEZ, PT, DPT
[2020-07-25 14:35] VITALS: BP 128/66
--- NOTE | 2020-07-25 16:08 | NUR ---
I have reviewed the documentation by JIMY MATHEW from 07/25/20 to 07/25/20 and I concur with it. CHIP GONZALEZ, PT, DPT
--- NOTE | 2020-07-25 16:18 | NUR ---
DISCUSSED DISCHARGE RECOMMENDATIONS WITH Pt'S . RECOMMENDED PURCHASING TRANSPORT CHAIR FOR INITIAL COMMUNITY MOBILITY Pt OR SPOUSE DID NOT WANT TO PURSUE RECEIVING W/C PRIOR TO D/C; EDUCATED Pt'S SPOUSE ON LIMITED WALKING TOLERANCE, 15' THIS SESSION, 30' MAX; EDUCATED ON STAIR TRAINING AND RECOMMENDATION THAT SHE HAVE ADDITIONAL FAMILY MEMBER PRESENT WHEN Pt IS NEGOTIATING STAIRS; RECOMMENDED THAT BEDRAIL BE PURCHASED AND INSTALLED PRIOR TO Pt'S D/C ON TUESDAY. Pt'S SPOUSE DENIES CONCERNS REGARDING RECOMMENDATIONS OR D/C PLAN.
--- NOTE | 2020-07-25 16:23 | NUR ---
D/T Pt'S LIMITED WALKING TOLERANCE, PT ALSO RECOMMENDED TO Pt'S SPOUSE THAT CHAIRS BE PLACED AT TOP AND BOTTOM OF STAIRS AND THROUGHOUT HOME. Pt'S SPOUSE VERBALIZES UNDERSTANDING OF ALL RECOMMENDATIONS MADE.
[2020-07-25 19:00] VITALS: BP 127/62
--- NOTE | 2020-07-25 19:07 | NUR ---
ASSUMED CARE OF PT AT 0700. PT IS A&OX4. HR ELEVATED AND REPORTS OF LOW BP FROM NIGHT NURSE. PROVIDER NOTIFIED, ORDERS FOR LABS TO BE DRAWN, LAB AND NURSING UNABLE TO OBTAIN BLOOD THIS SHIFT, ONCOMINIG SHIFT NOTIFIED. PT REPORTS PAIN TO LOWER BACK, MANAGED WITH PO MEDICATIONS. DRESSING TO SACRUM CHANGED BY WITH NURSE SUPERVISION. ACCU CHECKS ACHS, BG UNDER 200 THIS SHIFT. FALL PRECAUTIONS IN PLACE AND NURSING WILL CONTINUE TO MONITOR.
[2020-07-25 22:41] LABS: HEMATOCRIT 32.1 % (42.0-52.0); HEMOGLOBIN 10.9 gm/dL (14.0-18.0); MCH 31.1 pg (26.0-34.0); MCHC 34.1 g/dL (28.0-37.0); MCV 91.3 fL (80.0-100.0); RBC 3.51 mil/uL (4.50-6.00); RDW 15.7 % (10.5-14.5)
[2020-07-25 23:07] LABS: ALBUMIN 2.8 g/dL (3.4-5.0); CALCIUM 8.8 mg/dL (8.5-10.1); CREATININE 1.4 mg/dL (0.7-1.3); MAGNESIUM 1.4 mg/dL (1.8-2.4); POTASSIUM 3.6 mmol/L (3.5-5.1); TOTAL BILIRUBIN 0.4 mg/dL (0.2-1.0); TOTAL PROTEIN 6.7 g/dL (6.4-8.2)
--- NOTE | 2020-07-26 01:12 | NUR ---
ASSUMED PT CARE AT 1900.PT WAS OBSERVED LYING IN BED WITH HIS EYES CLOSED AT START OF SHIFT.PT DENIED PAIN SO FAR.PT ON 3L/NC NOC.BG MONITORED WAS 190,COVERAGE GIVEN PER ORDER.PT TARCHYCARDIC THIS SHIFT.LAB DRAWN THIS SHIFT.PT ABLE TO REPOSITION SELF WITH ASSISTANCE.DRSG TO HIS SACRUM INTACT.PT SLEEPING ON HIS BED AT THIS TIME.URINAL AT BEDSIDE,GOOD OUTPUT NOTED.FALL PRECAUTIONS IN PLACE.CALL LIGHT WITHIN REACH.
[2020-07-26 05:26] LABS: CALCIUM 8.7 mg/dL (8.5-10.1); MAGNESIUM 1.4 mg/dL (1.8-2.4); POTASSIUM 3.7 mmol/L (3.5-5.1)
[2020-07-26 05:39] LABS: HEMATOCRIT 31.8 % (42.0-52.0); HEMOGLOBIN 10.8 gm/dL (14.0-18.0); MCH 30.9 pg (26.0-34.0); MCHC 33.9 g/dL (28.0-37.0); MCV 91.2 fL (80.0-100.0); RBC 3.49 mil/uL (4.50-6.00); RDW 15.7 % (10.5-14.5)
[2020-07-26 06:06] VITALS: BP 140/67
--- NOTE | 2020-07-26 17:21 | NUR ---
ASSUMED CARE OF PT AT 0700. PT IS A&OX4 AND VITAL SIGNS ARE STABLE, PT CONTINUES TO HAVE TACHYCARDIA WITHOUT SYMPTOMS. PT DENIES PAIN AND PARTICIPATED IN SCHEDULED THERAPIES. WOUND TO SACRUM CHANGED PER ORDERS. ACCU CHECKS ACHS. PAIN TO LOW BACK REPORTED AND MANAGED WITH PO MEDICAITONS. MIDLINE IV ACCESS TO RIGHT UPPER ARM. MAG LOW ON AM LABS AND REPLACED PER ORDERS. FALL PRECAUTIONS IN PLACE AND NURSING WILL CONTINUE TO MONITOR.
[2020-07-26 19:43] VITALS: BP 132/82
--- NOTE | 2020-07-26 23:47 | NUR ---
ASSESSMENT COMPLETED. PT IS ALERT AND ORIENTED. SACCRAL WOUND WITH DRSG INTACT. PT HELPED TO REPOSITION AND BOTTOM OFFLOADED.PERCOCET GIVEN FOR A 8/10 PAIN. CREAM APPLIED TO NECK AND ARM PITS. THE REDNESS IS RESOLVED.PT HS SUGAR OF 176, HE ASKED FOR SOME CRACKERS ND APPLE SAUCE. TEMP OF 99.6. WILL RECHECK.BP STABLE. PT DRINKING. ON 11/26L/NC, TACHYCARDIC, DENIES ANY CHEST PAIN OR TIGHTNESS.HE TOOK HIS HS MEDS OKAY- AND SEEMS TO BE FINALLY RELAXED AND SLEEPING.REMAINS ALERT AND ORIENTED. HE MAKES NEEDS KNOWN. NEEDS HELP WITH URINAL.REFUSED HS MIRALAX, REPORTS ADEQUATE STOOLING.WILL CONTINUE WITH POC TILL EOS.
[2020-07-27 07:00] VITALS: BP 116/60
[2020-07-27 13:49] LABS: HEMOGLOBIN 9.5 gm/dL (14.0-18.0); MCH 31.1 pg (26.0-34.0); MCHC 34.1 g/dL (28.0-37.0); MCV 91.3 fL (80.0-100.0); RBC 3.07 mil/uL (4.50-6.00); RDW 15.3 % (10.5-14.5); WBC 7.3 thou/uL (4.0-11.0)
[2020-07-27 13:50] LABS: URINE BILIRUBIN NEGATIVE (Negative); URINE BLOOD NEGATIVE (Negative); URINE COLOR YELLOW; URINE GLUCOSE-RANDOM* NEGATIVE (Negative); URINE KETONES NEGATIVE (Negative); URINE NITRITE-REFLEX NEGATIVE (Negative); URINE PROTEIN (DIPSTICK) TRACE (Negative); URINE SPECIFIC GRAVITY >= 1.030 (1.005-1.035); URINE UROBILINOGEN 0.2 E.U./dl (0.2-1.0)
[2020-07-27 13:51] LABS: URINE CLARITY SL HAZY; URINE LEUKOCYTES-REFLEX 1+ (Negative)
[2020-07-27 13:58] LABS: CALCIUM 8.6 mg/dL (8.5-10.1); CREATININE 1.1 mg/dL (0.7-1.3); MAGNESIUM 1.5 mg/dL (1.8-2.4); POTASSIUM 3.6 mmol/L (3.5-5.1)
[2020-07-27 14:00] LABS: CASTS None Seen /LPF (None Seen); SQUAMOUS 0-3 Few /LPF (0-3)
[2020-07-27 14:01] LABS: BACTERIA-REFLEX None Seen /HPF (None Seen); CRYSTALS None Seen /LPF (None Seen); URINE RBC None Seen /HPF (0-2); URINE WBC-REFLEX >25 Many /HPF (0-5); YEAST-REFLEX Present (None Seen)
--- NOTE | 2020-07-27 17:46 | NUR ---
ASSUMED CARE OF PT AT 0700. PT IS A&OX3, CONFUSION AND IMPULSIVITY NOTED THIS SHIFT. AND VITAL SIGNS ARE STABLE. TEMP CHECKED Q4H THIS SHIFT AND REMAINED WNL. PAIN TO LOWER BACK MANAGED WITH PO MEDICATION, PARTICIPATED IN SCHEDULED THERAPIES. WOUND TO SACRUM CHANGED PER ORDERS, NOTED FOUL SMELL FROM WOUND. CONGESTED COUGH NOTED IN AM WITH COARSE CRACKLE SOUNDS TO BILATERAL LUNGS. ON UNIT AT LUNCH AND REPORTED CONCERNS THAT PT WAS CONFUSED. CHEST X-RAY, LABS, UA OBTAINED. RESULTS CALLED TO REHAB ARRT TECHNOLOGIST AND HOSPITALIST. ACCU CHECKS ACHS. RIGHT UPPER ARM MIDLINE DRESSING CHANGED BY IV NURSE. FALL PRECAUTIONS IN PLACE AND NURSING WILL CONTINUE TO MONITOR.
[2020-07-27 20:49] VITALS: BP 107/52
--- NOTE | 2020-07-27 21:56 | NUR ---
ASSUMED CARE OF PT AT 1915. PT IS A&OX4. IS ON 3L OF O2/NC. ENCOURAGE USE OF IS. AUDIBLE WHEEZING NOTED. PT IS STABLE. REPORTS BACK PAIN THAT IS BEING MANAGED WITH ORAL & TOPICAL PAIN MEDS. DRSG TO SACRUM C/D/I. IS UP WITH 1 ASSIST, MARYANN SRIVASTAVA. FALL PRECAUTIONS & HOURLY ROUNDING CONTINUED THIS SHIFT. LABS & VITALS REVIEWED. PT VOIDS PER URINAL. PT IS CURRENTLY SLEEPING. CALL LIGHT WITHIN REACH. WILL CONTINUE TO MONITOR.
[2020-07-28 06:29] LABS: HEMATOCRIT 27.5 % (42.0-52.0); HEMOGLOBIN 9.3 gm/dL (14.0-18.0); MCH 31.5 pg (26.0-34.0); MCHC 33.9 g/dL (28.0-37.0); MCV 92.8 fL (80.0-100.0); RBC 2.96 mil/uL (4.50-6.00); RDW 15.2 % (10.5-14.5); WBC 5.7 thou/uL (4.0-11.0)
[2020-07-28 06:34] LABS: CALCIUM 8.6 mg/dL (8.5-10.1); CREATININE 1.1 mg/dL (0.7-1.3); MAGNESIUM 1.4 mg/dL (1.8-2.4); POTASSIUM 3.4 mmol/L (3.5-5.1)
[2020-07-28 07:45] VITALS: BP 124/72
--- NOTE | 2020-07-28 13:21 | HC ---
[facility] [place] [address] CONSULTATION Name: CARRIE LESTER Room #: 516-1 ADM IN M.R.#: [id number] Admission: 07/10/20 Attend Phys: Cuate Guevara MD Discharge: Date of : 47 Report #: [id number] THIS REPORT FOR: cc: Monroe Pacheco James D. DO Al-Mubaslat, Ahmad MD ~ CC: Cuate Pacheco DATE OF SERVICE: 07/11/2020 ENDOCRINE CONSULTATION NOTE CONSULTING PHYSICIAN: Dr. Guevara. REASON FOR CONSULTATION: Type 2 diabetes mellitus. HISTORY OF PRESENT ILLNESS: This is a 75-year-old male patient whose medical background is significant for multiple medical issues including type 2 diabetes mellitus, COPD, obstructive sleep apnea, hypertension and CAD. The patient was originally admitted to [facility] on 07/05/2020 with issues pertaining to shortness of breath and acute respiratory failure. The patient's history of type 2 diabetes mellitus dates back to 12 years and notes that he has been utilizing a regimen of Levemir insulin 110 units at night as well as Humalog insulin 80 units with meals. He notes that his blood glucose values have primarily been in the low to mid 100 mg/dL range without major hypoglycemia. He does not believe that he has ever been diagnosed as having diabetic retinopathy or nephropathy, but does report significant numbness, tingling and burning sensation involving both lower extremities. He is currently on gabapentin therapy for this issue. The patient has coronary artery disease. He is also known to have hyperlipidemia and is maintained on pravastatin therapy. REVIEW OF SYSTEMS: CONSTITUTIONAL: Fatigue, tiredness. No fever, chills or changes in body weight. HEENT: Negative for sore throat, sinus pain or ear drainage. PULMONARY: Shortness of breath and cough, but not hemoptysis. He has baseline COPD and obstructive sleep apnea. CARDIAC: Negative for chest pain, palpitations, syncope or presyncope. GASTROINTESTINAL: Negative for abdominal pain, nausea, vomiting or changes in bowel frequency. NEUROLOGY: Negative for loss of consciousness, seizure activity or frequent severe headaches; however, he has baseline difficulties with peripheral diabetic neuropathy. [facility] [address] [place] [address] CONSULTATION Name: CARRIE LESTER Room #: 516-1 [facility] IN M.R.#: [id number] Admission: 07/10/20 Attend Phys: Cuate Guevara MD Discharge: Date of : 47 Report #: [id number] Otherwise, his review of systems is noncontributory other than those mentioned in HPI. MEDICINE ALLERGIES: ACETAMINOPHEN, BLEACH, CEFTRIAXONE, ERYTHROMYCIN, HYDROCODONE, LISINOPRIL, DEMEROL, PEANUTS, PENICILLIN, ____ AND ASPIRIN. PAST MEDICAL HISTORY: 1. Type 2 diabetes mellitus. 2. Obesity. 3. Chronic obstructive pulmonary disease. 4. Obstructive sleep apnea. 5. Hypertension. 6. Hyperlipidemia. 7. Coronary artery disease. 8. History of deep venous thrombosis. 9. History of gastroparesis. 10. Possible renal insufficiency. OUTPATIENT MEDICATIONS: Include: 1. Eliquis 5 mg b.i.d. 2. Vitamin D3 1000 units daily. 3. Combivent. 4. Flonase. 5. Lasix 60 mg daily. 6. Neurontin 300 mg q. 8 hours. 7. Levemir 110 units q.p.m. 8. Humalog 80 units t.i.d. a.c. 9. Lorazepam 0.5 mg q. 6 hours p.r.n. anxiety. 10. Singulair 10 mg daily. 11. Multivitamins 1 tablet daily. 12. Pravastatin 40 mg daily. 13. Prednisone 40 mg daily. 14. Pantoprazole 40 mg daily. 15. Tramadol q. 4 hours p.r.n. FAMILY HISTORY: Noncontributory. SOCIAL HISTORY: The patient denies use of tobacco, alcohol or illicit drugs. PHYSICAL EXAMINATION: GENERAL: Pleasant male patient who is not in apparent pain or distress. VITAL SIGNS: Blood pressure is 152/75 mmHg, heart rate is 71 beats per minute, respirations 16 per minute, temperature 36.3 degrees Celsius. CONSTITUTIONAL: The patient is lying in bed, appears comfortable, [place] [address] CONSULTATION Name: CARRIE LESTER Room #: 516-1 ADM IN M.R.#: [id number] Admission: 07/10/20 Attend Phys: Cuate Guevara MD Discharge: Date of : 46 Report #: [id number] apparent distress. HEENT: Anicteric sclerae. Intact extraocular motions. NECK: Supple, without JVD or thyromegaly. CHEST: Noted for distant breath sounds, coarse breath sounds, scattered rales. No crackles. HEART: Regular rate and rhythm without murmurs or gallops. ABDOMEN: Soft, lax. No tenderness, no guarding. Active bowel sounds. EXTREMITIES: Lower extremity exam, ankle edema bilaterally. No skin breaks or ulcerations. Sensation to light touch is significantly diminished. NEUROLOGIC: Awake, alert and oriented to time, place and person. The remainder of his examination is nonfocal other than for peripheral sensory deficits. PSYCHIATRY: Pleasant, interactive. Normal mood and affect. Normal thought process. LABORATORY RESULTS: Blood glucoses over the past 48 hours have been primarily over 250 mg/dL and often over 300 mg/dL with a peak of 428 mg/dL. This morning, he woke up with 77 mg/dL, prelunch it was at 141 mg/dL. Sodium 140, potassium 3.4, chloride 103, CO2 of 31, anion gap 6, BUN 30, creatinine 1.2, AST 11, total bilirubin 0.2, direct bilirubin 0.1, calcium 8.6, magnesium 1.7, alkaline phosphatase 37, ALT 22, total protein 5.3, albumin 2.1, EGFR 59. Lactic acid 2.1. BNP 629. INR 1.1. White blood count 12, hemoglobin 10.3, hematocrit 31, platelets 167. Vitamin D 18.8. Hemoglobin A1c is 7.7%. ASSESSMENT AND PLAN: 1. Type 2 diabetes mellitus. The patient's course is marked by severe insulin resistance as would be reflected by his very large insulin dose requirements noted in HPI. During this hospital stay, I have placed the patient on a combination of Lantus insulin 40 units at bedtime and Humalog insulin 12 units before meals in addition to coverage with Humalog supplemental scale low intensity. Not only did he do well with this much reduced insulin intake, but he actually developed what I would describe as mild hypoglycemia earlier this morning. Given this response, I will cut back his Lantus insulin dose to 36 units at bedtime and maintain the current Humalog coverage with meals as well as the support with a low intensity Humalog supplemental scale. Blood glucose monitoring will continue a.c. and at bedtime and further therapeutic adjustments will be made accordingly. 2. Hypertension. The patient's level of blood pressure control is adequate. He is to continue the current regimen. 3. Hyperlipidemia. The patient is on atorvastatin therapy and tolerates it well. He is to continue with the same. 4. Diabetic neuropathy. The patient is maintained on gabapentin 300 mg t.i.d. for his issue of peripheral neuropathy. This is to be resumed if deemed clinically appropriate. [address] [address] CONSULTATION Name: CARRIE LESTER Room #: 516-1 [facility] IN ..#: [id number] Admission: 07/10/20 Attend Phys: Cuate Guevara MD Discharge: Date of : 46 Report #: [id number] I certainly appreciate this consultation by Dr. Guevara. <ELECTRONICALLY SIGNED> By: Lucretia Johnson MD 07/28/20 1321 1324 1451 Lucretia Johnson MD /nt
--- NOTE | 2020-07-28 14:47 | NUR ---
ASSUMED CARES AT 0700. PT AWAKE, ALERT AND ORIENTED*4. HR ELEVATED THIS TODAY AND INCREASING WITH ACTIVITY UPTO 130'S, HOSPITALIST NOTIFIED, BP LOWERING MEDS ADMINISTERED SCHEDULED WILL CONTINUE TO MONITOR. C/O LOWER BACK AND SACRAL WOUND PAIN, PAIN MEDICATION ADMINISTERED NEEDED. SACRAL WOUND CLEANED AND DRESSING CHANGED, PT REPOSITIONED Q2H. LS DIMINISHED, PT CONTINUES TO HAVE SOB WITH EXERTION AND REMAINS ON 3L VIA NC. CONTINUES TO HAVE BLE EDEMA, EXTREMITIES ELEVATED. RIGHT UPPER ARM IV REMAINS INTACT AND PATENT, IV ANTIBIOTICS AND MG ADMINISTERED ORDERED. PT UP WITH 1MOD-MAX ASSIST, GB AND WALKER/ W/C, INCREASED SOB AND ELEVATED HR CAUSING MULTIPLE RESTS. Q1H VISUAL CHECKS. CALL LIGHT WITHIN REACH. FALL PRECAUTIONS IN PLACE
--- NOTE | 2020-07-28 16:31 | NUR ---
I have reviewed the documentation by JIMY MATHEW from 07/28/20 to 07/28/20 and I concur with it. CHIP GONZALEZ, PT, DPT
[2020-07-28 20:00] VITALS: BP 87/46
--- NOTE | 2020-07-29 01:42 | NUR ---
ASSUMED CARE APPROX 1899 EVENING 07/28. PT LYING IN BED AT CHANGE OF SHIFT RESTING WITH HEAD OF BED ELEVATED. PT STATED HE WAS TIRED FROM THERAPY. PT TOOK HS MEDS WITH WATER TOLERATING WELL. PT VOIDING PER URINAL. PT APPEARS TO BE SLEEPING SOUNDLY WITH HOURLY ROUNDING. BED ALARM ON AND CALL LIGHT IN REACH. WILL CONTINUE TO MONITOR.
[2020-07-29 08:00] VITALS: BP 106/55
--- NOTE | 2020-07-29 08:20 | NUR ---
cm notified by physical therapy that pt will not be dc today. chitra had cxr yesterday noted in chart and had elevated temp. will cont following as needed for dc needs. will discuss during team today.
--- NOTE | 2020-07-29 18:46 | NUR ---
PT A&OX4, CHANGES IN VITAL SIGNS DOCTOR AWARE. PAIN MEDICATION GIVEN. CT OF CHEST ORDERED. RIGHT UPPER ARM MIDLINE. 3L OXYGEN. DRESSING CHANGE TO SACRUM DONE. PATIENT NOT IN ACUTE DISTRESS, WILL CONTINUE TO MONITOR.
[2020-07-29 19:45] VITALS: BP 107/61
--- NOTE | 2020-07-30 03:28 | NUR ---
ASSUMED CARE APPROX 1900 EVENING 07/29. PT WITH FEVER AT CHANGE OF SHIFT AND PT SOMEWHAT CONFUSED. PT GIVEN PO TYLENOL AND FEVER HAS GONE DOWN FROM [address] CHRISTIANSON MADE ROUNDS AND ORDERS PLACED. PT TOOK HS MEDS WITH WATER TOLERATING WELL. PT VOIDIING PER URINAL. PT APPEARS TO BE SLEEPING SOUNDLY WITH HOURLY ROUNDING. BED ALARM ON AND CALL LIGHT IN REACH. WILL CONTINUE TO MONITOR.
[2020-07-30 06:27] LABS: ABSOLUTE NEUTROPHILS 2.5 thou/uL (1.4-8.2); BASOPHILS 0.7 % (0.0-2.0); EOSINOPHILS 6.6 % (0.0-3.0); HEMATOCRIT 28.2 % (42.0-52.0); HEMOGLOBIN 9.5 gm/dL (14.0-18.0); MCH 31.1 pg (26.0-34.0); MCHC 33.7 g/dL (28.0-37.0); MCV 92.2 fL (80.0-100.0); MONOCYTES 11.8 % (1.0-8.0); PLATELET COUNT 239 thou/uL (150-400); POLYS 50.9 % (36.0-66.0); RBC 3.06 mil/uL (4.50-6.00); RDW 15.6 % (10.5-14.5); WBC 4.9 thou/uL (4.0-11.0)
[2020-07-30 07:14] LABS: ALBUMIN 2.4 g/dL (3.4-5.0); CALCIUM 8.5 mg/dL (8.5-10.1); CREATININE 1.1 mg/dL (0.7-1.3); POTASSIUM 3.8 mmol/L (3.5-5.1); TOTAL BILIRUBIN 0.4 mg/dL (0.2-1.0); TOTAL PROTEIN 5.7 g/dL (6.4-8.2)
--- NOTE | 2020-07-30 09:49 | NUR ---
cm notified by sheep killer, md and bedside nurse that he will be going to acute hospital rt change in condition.
--- NOTE | 2020-07-30 09:54 | NUR ---
rapid response called now.
--- NOTE | 2020-07-30 09:58 | NUR ---
RR, EKG, TROPONIN, D-DIMER ORDERED STAT, AND PT IS ALERT, HAD ONE EPISODE OF FIXED GAZE FOR BRIEF MOMENT, THEN ALERT AGAIN. ASSISTED BACK INTO BED AND REMAINS ON O2 AT 3L WITH O2 SAT WNL. HR 110. DR. HANKINS, TOM HURTADO, RESPIRATORY, LAB, AND RN AT BEDSIDE. ATTEMPTING TO FIND BED FOR TRANSFER TO ACUTE.
--- NOTE | 2020-07-30 11:35 | NUR ---
ASSUMED CARES AT 0700. PT AWAKE, ALERT AND ORIENTED*4 BUT FORGETFUL. HR ELEVATED, ALL OTHER VITALS REMAIN STABLE. C/O SACRAL PAIN, REPOSITIONED, LIDOCAINE PATCHES IN PLACE. LS COARSE, COUGH PRESENT - NON-PRODUCTIVE HACKING COUGH. AT 0945 DURING OCCUPATIONAL THERAPY, PATIENT GOT TEARY AND C/O CHEST PAIN, HR ELEVATED >100 AT REST. VITALS TAKEN AND IT SUPPORT TECHNICIAN CALLED. OTHER VITALS STABLE. ORDERS RECEIVED AND PATIENT EVALUATED, ONETIME DOSE NITROGLYCLINE ADMINISTERED, ATIVAN ADMINISTED PER DR'S ORDER. PT TRANSFERED TO ICU AND ORDERS CALLED TO THE RECEIVING RN. IV ON RIGHT ARM REMAINS INTACT AND PATENT, IV ANTIBIOTICS ADMINISTERED ORDERED. SACRAL WOUND CLEANED AND DRESSING CHANGED PRIOR TO TRANSFER. PATIENT'S CALLED AND NOTIFIED OF THE CHANGE IN STATUS AND TRANSFER TO ICU.
--- NOTE | 2020-07-30 12:32 | EKG ---
[facility] [place] [address] ELECTROCARDIOGRAM REPORT Name: CARRIE LESTER Room #: 516-1 [facility] IN M.R.#: [id number] Admission: 07/10/20 Attend Phys: Cuate Guevara MD Discharge: 07/30/20 Date of : 47 Report #: [id number] THIS REPORT FOR: cc: Monroe Pacheco James D. DO Santiago, Patrick MD FACC ~ THIS REPORT FOR: //name// [facility] Test Date: 2020-07-30 Test Time: 10:01:13 Pat Name: CARRIE LESTER Department: Room: [facility] Gender: M [place]: : 1945 Requested By: Leeann Morillo Order Number: [id number] MD: Alfrde Liao Measurements Intervals [place] Rate: 102 P: 37 FL: 145 QRS: 12 QRSD: 91 T: 45 QT: 339 QTc: 442 Interpretive Statements Sinus tachycardia Compared to ECG 07/05/2020 08:53:59 No significant changes Electronically Signed On 07-30-2020 12:31:45 CDT by Alfred Liao [email or web address] <ELECTRONICALLY SIGNED> By: Alfred Liao MD, FACC 07/30/20 1231 1001 1001 Alfred Liao MD, FAC /EPI
== END 2020-07-30 10:38 | disposition home health service (06) | DRG 91 ==
PROVIDERS: Internal Medicine; Nurse Practitioner; Nurse Practitioner Family; Specialist; ADMIT Physical Medicine & Rehabilitation; ATTEND Physical Medicine & Rehabilitation
PROC: 5A09357 Assistance with Respiratory Ventilation, Less than 24 Consecutive Hours, Continuous Positive Airway Pressure (ICD-10-PCS; principal; 2020-07-10)
PROC: 05HY33Z Insertion of Infusion Device into Upper Vein, Percutaneous Approach (ICD-10-PCS; 2020-07-30)
DX: G72.81 Critical illness myopathy (principal); L89.153 Pressure ulcer of sacral region, stage 3; E43 Unspecified severe protein-calorie malnutrition; J96.21 Acute and chronic respiratory failure with hypoxia; A40.0 Sepsis due to streptococcus, group A; N17.9 Acute kidney failure, unspecified; L02.91 Cutaneous abscess, unspecified; Z68.41 Body mass index [BMI] 40.0-44.9, adult; R53.81 Other malaise; J44.9 Chronic obstructive pulmonary disease, unspecified; E87.6 Hypokalemia; E83.42 Hypomagnesemia; I25.10 Atherosclerotic heart disease of native coronary artery without angina pectoris; G47.33 Obstructive sleep apnea (adult) (pediatric); E11.43 Type 2 diabetes mellitus with diabetic autonomic (poly)neuropathy; K31.84 Gastroparesis; E78.5 Hyperlipidemia, unspecified; E11.40 Type 2 diabetes mellitus with diabetic neuropathy, unspecified; E66.01 Morbid (severe) obesity due to excess calories; G31.84 Mild cognitive impairment of uncertain or unknown etiology; F43.20 Adjustment disorder, unspecified; N18.30 Chronic kidney disease, stage 3 unspecified; M19.011 Primary osteoarthritis, right shoulder; E11.22 Type 2 diabetes mellitus with diabetic chronic kidney disease; N40.0 Benign prostatic hyperplasia without lower urinary tract symptoms; I27.20 Pulmonary hypertension, unspecified; K59.00 Constipation, unspecified; F43.10 Post-traumatic stress disorder, unspecified; F43.9 Reaction to severe stress, unspecified; I95.9 Hypotension, unspecified; G89.29 Other chronic pain; M54.9 Dorsalgia, unspecified; Z88.0 Allergy status to penicillin; Z86.718 Personal history of other venous thrombosis and embolism; Z88.8 Allergy status to other drugs, medicaments and biological substances; Z88.6 Allergy status to analgesic agent; Z88.1 Allergy status to other antibiotic agents; Z91.010 Allergy to peanuts; Z87.891 Personal history of nicotine dependence; Z79.4 Long term (current) use of insulin; Z79.899 Other long term (current) drug therapy
CPT/HCPCS: 10112

== ENCOUNTER 2020-07-30 11:24 | Inpatient (IN) | payer OTHER ==
[2020-07-30] VITALS (18 sets, daily range): BP systolic 88–136; BP diastolic 35–71
[~2020-07-30] VITALS: Ht 180.3 cm; Wt 146.1 kg
[~2020-07-30 11:24] MED LIST changes: +AZACTAM 1 GM VIA1 G1 IV; +FLAGYL500 M1 IV
--- NOTE | 2020-07-30 11:28 | NUR ---
75 YO MALE ADMITTED TO ICU ROOM 250 PER BED FROM [address] [place] [address], AT 1050. ATTACHED TO CARDIAC, O2 SAT AND BP MONITORS. PATIENT IS ALERT AND RESPONSIVE. PHYSICAL ASSESSMENT COMPLETED. VANCOMYCIN INFUSING.
--- NOTE | 2020-07-30 12:52 | NUR ---
he was moved down from acute rehab after change in condition and rapid response. chart review. he was independent prior to going to skilled rehab at [facility] before he was sent her from skilled then went from hospital to acute rehab. he was going to dc home with 07/29 with [facility]. he was independent, has cane, walker and 4ww. he managed his own medication and was driving vehicle. house has 2 steps to enter and 13 steps inside the home. will cont following as needed for dc needs.
--- NOTE | 2020-07-30 14:41 | NUR ---
WOUND CARE F/U; THIS PATIENT WAS ADMITTED TODAY FROM [address] [place] [address] HANKINS FOR WOUND CARE. THE PATIENT WAS GOING FOR A CAT SCAN IMMINENTLY. THE STAFF AND I QUICKLY PICTURED, CLEANED AND DRESSED THE SACRAL WOUND. THERE WAS NO ACUTE ODOR. THE WOUND WAS TENDER TO THE PATIENT. THE WOUND IS FRIABLE. RECOMMENDATIONS; CONTINUE DAKINS MOIST GAUZE, COVER WITH AN ABD DAILY/PRN RN WAS PRESENT.
--- NOTE | 2020-07-30 14:55 | NUR ---
PATIENT TO CT SCAN WITH NURSE VIA BED WITH NATIONAL COVERAGE SPECIALIST AND O2
[2020-07-31] VITALS (14 sets, daily range): BP systolic 90–131; BP diastolic 34–63
[2020-07-31 02:31] LABS: HEMATOCRIT 26.2 % (42.0-52.0); HEMOGLOBIN 8.8 gm/dL (14.0-18.0); MCH 30.7 pg (26.0-34.0); MCHC 33.7 g/dL (28.0-37.0); MCV 91.1 fL (80.0-100.0); RBC 2.88 mil/uL (4.50-6.00); RDW 15.3 % (10.5-14.5)
[2020-07-31 02:39] LABS: ANION GAP 3 mmol/L (7-16); BUN 12 mg/dL (7-18); CALCIUM 8.9 mg/dL (8.5-10.1); CHLORIDE 102 mmol/L (98-107); CO2 33 mmol/L (21-32); CREATININE 1.5 mg/dL (0.7-1.3); GLUCOSE 178 mg/dL (74-106); MAGNESIUM 1.6 mg/dL (1.8-2.4); POTASSIUM 3.6 mmol/L (3.5-5.1); SODIUM 138 mmol/L (136-145); TROPONIN-I <0.06 ng/mL (<0.06)
[2020-07-31 07:06] LABS: URINE BILIRUBIN NEGATIVE (Negative); URINE BLOOD NEGATIVE (Negative); URINE CLARITY CLEAR; URINE COLOR YELLOW; URINE GLUCOSE-RANDOM* NEGATIVE (Negative); URINE KETONES NEGATIVE (Negative); URINE LEUKOCYTES-REFLEX TRACE (Negative); URINE NITRITE-REFLEX NEGATIVE (Negative); URINE PROTEIN (DIPSTICK) NEGATIVE (Negative); URINE UROBILINOGEN 0.2 E.U./dl (0.2-1.0)
--- NOTE | 2020-07-31 10:37 | NUR ---
Patient incontient of urine, discuss healing process with patient for decube if area could remain dry. Wound vac placed at 1000. Mas cath placed at 1030 with immediate return of 200 ml light yellow urine. Speech therapy at bedside at 0915 for evaluation,
--- NOTE | 2020-07-31 10:38 | NUR ---
WOUND CARE F/U; TODAY I AM APPLY A WOUND VAC TO THE SACRUM PER DR RAZO. THE STAGE 4 PRESSURE ULCER HAS NO S/S OF INFECTION. THE WOUND IS TENDER. NON ODOROUS. THE PATIENT TOLERATED THE APPLICATION WELL. THE SEAL IS PATIENT AT THE SETTING OF 125MMHG CONTINOUS. DISCUSSED WITH RN AND DR RAZO
--- NOTE | 2020-07-31 11:50 | 2DMMODE ---
[facility] [place] [address] 2 D/M-MODE ECHOCARDIOGRAM Name: CARRIE LESTER Room #: 250-P ADM IN M.R.#: [id number] Admission: 07/30/20 Attend Phys: Blaze Roque MD Discharge: Date of : 47 Report #: [id number] THIS REPORT FOR: cc: Monroe Pacheco James D. DO Lammoglia, Francisco J. MD ~ APPROVED REPORT Study performed: 07/31/2020 11:00:30 EXAM: Comprehensive 2D, Doppler, and color-flow Echocardiogram Patient Location: ICU Room #: 250 Status: routine BSA: 2.52 HR: 89 bpm BP: 120/42 mmHg Rhythm: NSR Other Information Study Quality: Adequate Technically limited study due to morbid obesity. Indications Chest Pain Recent hx of COVID-19, leg edema, fever, staph, bacteremia. Hx: COPD, mild CAD, HTN, HLP. 2D Dimensions RVDd: 38.34 mm IVSd: 10.54 (7-11mm) LVOT Diam: 22.85 (18-24mm) LVDd: 48.20 mm PWd: 10.29 (7-11mm) Ascending Ao: 36.19 (22-36mm) LVDs: 35.03 (25-40mm) Aortic Root: 37.99 mm Volumes Left Atrial Volume (Systole) Single Plane 4CH: 65.72 mL Single Plane 2CH: 60.48 mL LA ESV Index: 30.00 mL/m2 Aortic Valve AoV Peak Saul.: 1.39 m/s AO Peak Gr.: 7.68 mmHg LVOT Max P.03 mmHg [facility] [address] [place] [address] 2 D/M-MODE ECHOCARDIOGRAM Name: CARRIE LESTER Deborah Room #: [address] [place] [address]#: [id number] Admission: 07/30/20 Attend Phys: Blaze Roque, Discharge: Date of : 47 Report #: [id number] LVOT Max V: 1.12 m/s KAMILLA Vmax: 3.32 cm2 Mitral Valve E/A Ratio: 0.9 MV Decel. Time: 201.83 ms MV E Max Saul.: 0.71 m/s MV A Saul.: 0.79 m/s MV PHT: 58.53 ms IVRT: 65.74 ms Pulmonary Valve PV Peak Saul.: 1.02 m/s PV Peak Gr.: 4.13 mmHg Pulmonary Vein P Vein S: 0.61 m/s P Vein A: 0.29 m/s P Vein D: 0.40 m/s P Vein A Dur.: 96.9 msec P Vein S/D Ratio: 1.52 Tricuspid Valve RAP Estimate: 5.00 mmHg Left Ventricle The left ventricle is normal size. There is normal left ventricular wall thickness. Left ventricular systolic function is normal. LVEF is 55%. Mild diastolic dysfunction is present (impaired relaxation pattern). Right Ventricle Right ventricle is not well visualized but appears grossly normal in size and function. Atria The left atrium size is normal. The right atrium size is normal. Aortic Valve The aortic valve is normal in structure; minimally calcified. No aortic regurgitation is present. There is no aortic valvular stenosis. Mitral Valve The mitral valve is normal in structure. Mild mitral annular calcification. There is no mitral valve regurgitation noted. No evidence of mitral valve stenosis. [facility] [address] [place] [address] 2 D/M-MODE ECHOCARDIOGRAM Name: CARRIE LESTER Room #: 250-[facility] IN [facility].#: [id number] Admission: 07/30/20 Attend Phys: Blaze Roque, Discharge: Date of : 47 Report #: [id number] Tricuspid Valve The tricuspid valve is normal in structure. There is no tricuspid valve regurgitation noted. Unable to assess PA pressure. Pulmonic Valve Pulmonic valve is not well visualized. Great Vessels Aortic root is borderline dilated. The ascending aorta is normal in size. IVC is normal in size and collapses >50% with inspiration. Pericardium There is no pericardial effusion. <Conclusion> The left ventricle is normal size. LVEF is 55%. The aortic valve is normal in structure; minimally calcified. The mitral valve is normal in structure. Mild mitral annular calcification. The tricuspid valve is normal in structure. Pulmonic valve is not well visualized. Aortic root is borderline dilated. There is no pericardial effusion. <ELECTRONICALLY SIGNED> By: Kaleb Mckinney MD 07/31/20 1150 1150 115 Kaleb Mckinney MD /INF
--- NOTE | 2020-07-31 15:23 | NUR ---
THE PATIENT'S BEDSIDE SWALLOW EVALUATION REPORT WAS INADVERTANTLY TYPED ONTO THE WRONG FORM. THE NOTE WAS TYPED ON THE OUTPATIENT BEDSIDE FORM WHEN IT SHOULD HAVE BEEN PUT ONTO THE INPATIENT BEDSIDE SWALLOW FORM.
[2020-07-31 16:19] LABS: HEMATOCRIT 27.8 % (42.0-52.0); HEMOGLOBIN 9.4 gm/dL (14.0-18.0)
[2020-07-31 16:27] LABS: MAGNESIUM 1.8 mg/dL (1.8-2.4); PHOSPHORUS 3.9 mg/dL (2.5-4.9)
--- NOTE | 2020-07-31 17:50 | NUR ---
PATIENT TRANFERRED TO ROOM 206 PER BED WITH O2 AND BELONGINGS. REPORT GIVEN TO EDMUNDO GRAMAJO AND UPDATED HIM ON PATIENT'S BLOOD SUGAR OF 120. PATIENT STATUS STABLE, PAIN CONTROLLED WITH PO PAIN MEDICATIONS.
--- NOTE | 2020-07-31 18:25 | NUR ---
TO UNIT BY BED FROM ICU, REPORT FROM ROX OG. BG 120; DINNER TRAY HERE, SET UP FOR HIM. WILL CONTINUE TO FOLLOW CLOSELY.
--- NOTE | 2020-08-01 04:34 | NUR ---
PT ALERT AND ORIENTED X3. VITALS STABLE. DENIES CHEST PAINS, NAUSEA OR VOMITING. Q2 TURNS. WOUND VAC IN PLACE. NO OTHER CONCERNS. WILL CONTINUE TO MONITOR.
[2020-08-01 04:35] VITALS: BP 114/53
[2020-08-01 06:09] LABS: CALCIUM 9.1 mg/dL (8.5-10.1); CREATININE 1.2 mg/dL (0.7-1.3); MAGNESIUM 1.7 mg/dL (1.8-2.4)
[2020-08-01 06:11] LABS: HEMATOCRIT 25.4 % (42.0-52.0); HEMOGLOBIN 8.6 gm/dL (14.0-18.0); MCH 30.9 pg (26.0-34.0); MCHC 33.9 g/dL (28.0-37.0); MCV 91.3 fL (80.0-100.0); RBC 2.78 mil/uL (4.50-6.00); RDW 15.4 % (10.5-14.5); WBC 4.4 thou/uL (4.0-11.0)
--- NOTE | 2020-08-01 09:11 | NUR ---
ASSUMED CARE OF PT AT SHIFT CHANGE, WEARS 02 AT HOME, A&0X3-4, FORGETFUL, THUS FAR IS NOT IMPULSIVE. NOTES DEPICT DORSAL SPINAL STIMULATOR, PT STATES HE GOT IT 4-5 YEARS AGO FOR NEUROPATHY. WHEN ASKED HOW HE AMB HE SAID, 'I THINK I JUST WALKED IN HERE', PRIOR SHIFT AMB STATUS WAS UNKNOWN, LIVES AT HOME W/SPOUSE. SEE SEPARATE INTERVENTIONS FOR ASSESSMENTS, ENCOURAGED PT TO USE CALL LIGHT FOR ANY NEEDS, HE REPOSITIONS HIMSELF FREQ D/T BUTTOCK WOUND THAT CURRENTLY HAS WOUND VAC.
--- NOTE | 2020-08-01 14:41 | NUR ---
PATIENT SEEN FOR REHAB CONSULT BY RIVAS FROST NP WITH DR. HURST. PATIENT WAS ON 5N FOR REHAB STAY PRIOR TO READMITTING TO ACUTE HOSPITAL. PATIENT IS A CANDIDATE TO RETURN TO 5N WHEN MEDICALLY STABLE. TO REACH WEEKEND LANCE CREWMEMBER, CALL [phone].
--- NOTE | 2020-08-01 16:52 | NUR ---
Pt accepted for readmission to 5[facility] acute rehab this weekend if cleared medically. DC plan post rehab remains home with hh. 5[facility] cm to follow.
[2020-08-01 19:50] VITALS: BP 123/51
[2020-08-02 03:30] VITALS: BP 143/75
[2020-08-02 04:57] LABS: HEMATOCRIT 26.8 % (42.0-52.0); HEMOGLOBIN 8.9 gm/dL (14.0-18.0); MCH 30.3 pg (26.0-34.0); MCHC 33.2 g/dL (28.0-37.0); MCV 91.2 fL (80.0-100.0); RBC 2.94 mil/uL (4.50-6.00); RDW 15.5 % (10.5-14.5)
[2020-08-02 05:09] LABS: CREATININE 1.1 mg/dL (0.7-1.3); MAGNESIUM 1.4 mg/dL (1.8-2.4); POTASSIUM 3.9 mmol/L (3.5-5.1)
[2020-08-02 09:45] VITALS: BP 126/49
[2020-08-02 16:30] VITALS: BP 140/68
--- NOTE | 2020-08-02 16:51 | NUR ---
ASSESSMENT CHARTED - MEDS PER MAR - GIVEN PERCOCET AND LORAZEPAM THIS AMWITH MOD EFFECT - PT BECAME VERY TEARY MID MORNING STATING HE WAS TIERD OF BEING IN THE HOSPTIAL AND HE NEEDS TO BE ABLE TO WALK AGAIN SO HE CAN GO HOME. SEN BY DR WILLAMS - PT NOT TRANSFERED TO REHAB UNIT DUE TO VIRAL PNUEMONIA PER CHEST XRAY - PULMONARY CONSULTED. INETERDRY PLACE IN ABDO FOLD ORDERED - WOUND VAN REMAINS INSITU AND FUNCTIONING. ACCUCHESTS CHARTED - PT TURNED X 2 THIS SHIFT REUQESTED. INTO VISIT THIS AM - NO CO'S AT THE PRESENT TIME - LAYING IN BED WATCHING TV.
[2020-08-02 19:30] VITALS: BP 150/63
[2020-08-03 04:00] VITALS: BP 139/72
--- NOTE | 2020-08-03 07:05 | NUR ---
progress pt a/o x4 rates pain to buttocks an 6 to 8 that is relieved with 10 mg percocet remains on iv abx's wound vac drsg intact foam compressed and machine reading 125cm sx bloody drainage noted in cannister. beckford draining large amounts, had a large soft unformed stool. picc in lou flushes easily no blood return.
[2020-08-03 07:36] LABS: MCHC 33.2 g/dL (28.0-37.0); MCV 90.2 fL (80.0-100.0); RBC 3.32 mil/uL (4.50-6.00); RDW 14.7 % (10.5-14.5); WBC 5.4 thou/uL (4.0-11.0)
[2020-08-03 07:45] VITALS: BP 122/64
[2020-08-03 07:51] LABS: CALCIUM 9.5 mg/dL (8.5-10.1); CREATININE 1.1 mg/dL (0.7-1.3); MAGNESIUM 1.7 mg/dL (1.8-2.4); POTASSIUM 4.5 mmol/L (3.5-5.1)
[2020-08-03 12:00] VITALS: BP 130/65
[2020-08-03 16:15] VITALS: BP 140/60
--- NOTE | 2020-08-03 17:54 | NUR ---
ASSESSMENT CHARTED - MEDS PER DEC - P GIVEN SOLUMEDROL 125 MGS ORDERED. VANC AND FLUCANAZOLE D/C'D. KEATON DIET AND FLUIDS. GIVEN PERCOCET AND LORAZEPAM X 1` DOSE WITH MOD EFFECT. WOUND VAC REMIANS INSOTU AND FUNCTIONING. ACCUCHECKS CHARTED / COVERED PER SSI. PT TURNED IN BED - OFERED HYGIENE PT REFUSED GOWN CHANGE ETC DID WASH FACE. FLEY CATH INSITU WITH GOOD URINE OUTPUT. INTO VISIT - PT WITH NO EMOTIONAL SPELLS TODDAY. NO CO'S AT THE PRESENT TIME.
[2020-08-03 19:48] VITALS: BP 122/60
[2020-08-04 00:36] VITALS: BP 122/60
[2020-08-04 04:58] VITALS: BP 131/70
[2020-08-04 07:46] LABS: CALCIUM 9.3 mg/dL (8.5-10.1); CREATININE 1.2 mg/dL (0.7-1.3); POTASSIUM 4.5 mmol/L (3.5-5.1)
--- NOTE | 2020-08-04 07:47 | NUR ---
assumed pt care at change of shift, pt awake, alert and oriented, sr on the monitor, meds given as per dec, c/o pain in the sacral area, wound vac intact, remains on o2 at 3l, no acute distress overnight, passed on report to day nurse
[2020-08-04 09:00] VITALS: BP 133/69
--- NOTE | 2020-08-04 11:33 | NUR ---
WOUND CARE F/U; THE PATIENT WAS TEARFUL TODAY. THE PATIENT EXPRESSED THAT THE WOUND CAUSED HIM GREAT PAIN. THERE WAS NO NOTICABLE ODOR WHEN THE DRESSING WAS REMOVED. THE PATIENT IS ON A LOW AIRLOSS PUMP. THE WOUND MEANSUREMENTS TODAY WERE 6 X 4 X 4 WITH UNDERMINING. THE VAC DRESSING WAS APPLIED AND FUNCTIONING WELL. RN PRESENT/PAIN MEDS GIVEN
[2020-08-04 13:00] VITALS: BP 116/58
--- NOTE | 2020-08-04 15:44 | NUR ---
Spoke with patient . concerned, she wants patient to transition to 5N however also reports a few zealous therapists on unit. She has been pleased with all care and does not want to go to any other facility. Requested 5N liason to call her to discuss..
[2020-08-04 17:11] VITALS: BP 126/66
--- NOTE | 2020-08-04 19:56 | NUR ---
ASSUMED CARE AT CHANGE OF SHIFT. ALERT X4, PAIN MANAGED WITH PRN MEDICATIONS. 3L NASAL CANNULA, SOB EARLY THIS MORNING THAT IMPROVED. PARTICIPATED WITH PT AND OT. 1300CC OUTPUT Deborah CORONA. NO BM TODAY. DR POST CONSULTED FOR DM2 WITH ORDES PLACED. DRANK ALL SUPPLEMENTS, WOUND VAC REPLACED TODAY BY WOUND TEAM. ONCE STABLE LIKELY TO DC BACK TO [facility]. FALL PRECATIONS IN PLACE. CALLS FOR ASSISTANCE.
[2020-08-04 21:32] VITALS: BP 125/57
[2020-08-05 01:50] VITALS: BP 125/57
[2020-08-05 05:08] VITALS: BP 133/56
--- NOTE | 2020-08-05 06:46 | NUR ---
assumed pt care at change of shift, pt is awake, alert and oriented, asessments as charted, vss, cannister chnaged to the wound vac, c/o itching, prn meds given as per dec, c/o pain on the left groin, pain meds given prn with relief, no acute distress noted, will pass on report
--- NOTE | 2020-08-05 06:51 | NUR ---
assumed pt care at the change of shift, pt awake, alert and oriented, forgetfull with intermittent confusion noted. sr on the monitor, assessments as charted, wound vac intact, pain meds given as per mar with partial relief, no acute distress noted, will pass on report
[2020-08-05 07:07] LABS: CALCIUM 9.4 mg/dL (8.5-10.1); CREATININE 1.3 mg/dL (0.7-1.3); POTASSIUM 4.1 mmol/L (3.5-5.1)
[2020-08-05 07:45] VITALS: BP 119/54
--- NOTE | 2020-08-05 09:39 | HC ---
[facility] [place] [address] CONSULTATION Name: CARRIE LESTER Room #: 206- ADM IN M.R.#: [id number] Admission: 07/30/20 Attend Phys: Blaze Roque MD Discharge: Date of : 47 Report #: [id number] THIS REPORT FOR: cc: Monroe Pacheco James D. DO Al-Mubaslat, Ahmad MD ~ DATE OF SERVICE: 08/04/2020 ENDOCRINE CONSULTATION NOTE CONSULTING PHYSICIAN: Dr. Apple. REASON FOR CONSULTATION: Uncontrolled type 2 diabetes mellitus. HISTORY OF PRESENT ILLNESS: This is a 75-year-old male patient whose medical background is significant for multiple medical issues including COPD, chronic kidney disease, obstructive sleep apnea and type 2 diabetes mellitus. The patient was originally admitted to [facility] on 07/05/2020 due to exacerbation of shortness of breath and tachycardia. Over the past few months, the patient was diagnosed with COVID-19 pneumonia. He has required multiple hospital admissions as well as intensive rehab efforts multiple times over the past 3 months. During his previous hospital stay, his course was complicated by pneumonia, septicemia as well as decubitus ulcers. The patient was eventually transferred to the inpatient rehabilitation unit at [facility], but then had a sudden onset chest pain, shortness of breath on 07/24/2020 with his presentation being consistent with pneumonitis and therefore transferred back to the CCU where he currently is. The patient's background is significant for type 2 diabetes mellitus, which he has had for many years. His home-based insulin regimen consisted of NPH 20 units b.i.d. in addition to NovoLog insulin 18 units with meals. He reports a fairly reasonable level of control at home before his lengthy course started a few months ago with most blood glucose values running from the low 100s to the high 100s without major issues of hypoglycemia. The patient's course with diabetes has been complicated by chronic kidney disease as well as peripheral neuropathy affecting his lower extremities for the most part. He is also known to have CAD as well as thromboembolic disease. The patient is hypertensive as well as hyperlipidemic and is maintained on medical therapy for those issues. During his stay at the CCU since 07/30/2020, the patient was doing relatively well on a combination of Lantus insulin 36 units daily in addition to Humalog insulin 10 units with each meal. However, as his pulmonary issues worsened and the need for high dose steroid therapy presented itself, he had developed severe hyperglycemia over the past 48 hours exceeding 400 mg/[place] [address] CONSULTATION Name: CARRIE LESTER Room #: 206-P [facility] [place] ..#: [id number] Admission: 07/30/20 Attend Phys: Blaze Roque MD Discharge: Date of : 47 Report #: [id number] REVIEW OF SYSTEMS: CONSTITUTIONAL: Fatigue, tiredness, but not fever or chills. HEENT: Negative for sore throat, sinus pain, ear drainage. PULMONARY: Shortness of breath and cough. No hemoptysis. CARDIAC: Intermittent bouts of chest pain, palpitations. No syncope or presyncope. GASTROINTESTINAL: Abdominal discomfort, nausea, but no vomiting. NEUROLOGY: Baseline issues with lower extremity neuropathy, but not loss of consciousness or seizure activity, no severe frequent headaches. Otherwise, his review of systems is noncontributory other than those mentioned in HPI. PAST MEDICAL HISTORY: 1. Type 2 diabetes mellitus. 2. Hypertension. 3. Hyperlipidemia. 4. COPD. 5. Obstructive sleep apnea. 6. Obesity. 7. Asthma. 8. CAD. 9. Osteoarthritis. 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 11. Gastroparesis. 12. Chronic kidney disease stage 3. 13. Peripheral diabetic neuropathy. 14. Pulmonary hypertension. 15. Stage 4 sacral wound. 16. Lumbar radiculopathy. 17. BPH. 18. History of COVID-19 pneumonitis in 03/2020. OUTPATIENT MEDICATIONS: Include Eliquis 5 mg b.i.d., vitamin D3 1000 units daily, Combivent 2 puffs q.i.d. p.r.n., gabapentin 300 mg p.o. q. 8 hours, guaifenesin 200 mg p.o. b.i.d., lorazepam 0.5 mg q. 6 hours p.r.n. anxiety, Singulair 10 mg daily, multivitamins once a day, Protonix 40 mg daily, pravastatin 40 mg daily, Seroquel 100 mg p.o. b.i.d. ALLERGIES: PENICILLIN, ASPIRIN, BLEACH, CEFTRIAXONE, ERYTHROMYCIN, HYDROCODONE, LISINOPRIL, MEPERIDINE, PEANUTS, STATINS. FAMILY HISTORY: Noncontributory. SOCIAL HISTORY: He is an ex-smoker. Denies use of tobacco or alcohol. Lives with his . [facility] [address] [place] [address] CONSULTATION Name: CARRIE LESTER Room #: [facility] [place] [facility].#: [id number] Admission: 07/30/20 Attend Phys: Blaze Roque MD Discharge: Date of : 46 Report #: [id number] PHYSICAL EXAMINATION: GENERAL: Pleasant male patient who is not in apparent pain or distress. VITAL SIGNS: Blood pressure is 133/69 mmHg, heart rate is 91 beats per minute, respirations 16 per minute, temperature is 36.6 degrees Celsius. CONSTITUTIONAL: The patient is sitting upright in bed, wearing a nasal cannula, appears tachypneic, not in apparent distress. HEENT: Anicteric sclerae. Intact extraocular motions. NECK: Supple, without JVD. No thyromegaly. CHEST: Noted for distant breath sounds bilaterally. Scattered rales, rhonchi, no crackles. HEART: Regular rate and rhythm without murmurs or gallops. ABDOMEN: Soft, lax. No guarding. Active bowel sounds. EXTREMITIES: Lower extremity exam is noted for trace ankle edema bilaterally. Diminished sensation. NEUROLOGIC: Awake, alert and oriented to time, place and person. The remainder of his examination is noted for peripheral sensory deficits as noted above. PSYCHIATRIC: Pleasant, interactive. Normal mood and affect. Normal thought process. LABORATORY RESULTS: Blood glucose values over the past 48 hours have ranged between 253 and 419 mg/dL. Prior to that, they were fairly consistently under 180 mg/dL without active issues of hypoglycemia. Sodium 139, potassium 4.5, chloride 101, CO2 of 28, anion gap 10, BUN 26, creatinine 1.2, AST 25, total bilirubin 0.4, direct bilirubin 0.1, calcium 9.3, phosphorus 3.9, magnesium 1.7, alkaline phosphatase 38, ALT 20, total protein 5.7, albumin 2.4, EGFR 59. Lactic acid 0.8. Troponin negative. BNP 629. INR 1.1. White blood count 5.4, hemoglobin 10, hematocrit 30, platelets 360. COVID-19 testing on 07/05/2020 was negative. Hemoglobin A1c is 7.7%. Vitamin D on 07/10/2020 was 18.8. ASSESSMENT AND PLAN: 1. Type 2 diabetes mellitus. This is a longstanding issue that is treated with basal bolus insulin at home. His baseline glycemic control prior to his need for inpatient care repeatedly over the past 3 months was fairly acceptable as his hemoglobin A1c is only slightly off target at 7.7%. He did fairly well with his established regimen of Lantus and Humalog during this hospital stay until the need for high dose steroid therapy presented itself. He is currently receiving Solu-Medrol 62.5 mg IV q. 8 hours. Notably, he developed severe hyperglycemia quite rapidly after this was established. That said, I will boost his Humalog scheduled dosage with meals from the current level of 16 units with meals to 24 with meals. Also, I will raise his Lantus insulin dosage to 44 units at bedtime and maintain Humalog supplemental scale, but to be advanced to moderate intensity for the time being. Blood glucose monitoring will commence a.c. and at bedtime and further adjustments will be made accordingly. I suspect that once his therapeutic needs from the standpoint of IV steroids diminish that [address] [address] CONSULTATION Name: CARRIE LESTER Room #: 206-P ADM IN M.R.#: [id number] Admission: 07/30/20 Attend Phys: Blaze Roque MD Discharge: Date of : 47 Report #: [id number] we will see this reflects favorably on his insulin needs as well. 2. Hypertension. The patient's level of blood pressure control is adequate, continue the current regimen. 3. Hyperlipidemia. The patient is currently on atorvastatin therapy and tolerates it well, he is to continue with the same. 4. Peripheral diabetic neuropathy. The patient is maintained on gabapentin therapy with fair control, he is to continue with the same. I have reviewed the patient's clinical care notes, laboratory data, and other pertinent clinical information for more than 35 minutes, in addition to my encounter time with him. I appreciate this consultation by Dr. Apple. <ELECTRONICALLY SIGNED> By: Lucretia Johnson MD 08/05/20 [id number] [id number] Lucretia Johnson MD /nt
[2020-08-05 12:00] VITALS: BP 124/53
[2020-08-05] MEDS ORDERED: METHOCARBAMOL500 M2 PO (12:02)
[2020-08-05] MEDS ORDERED: IPRAT-ALBUT 0.5-3 ML INH (12:02)
[2020-08-05] MEDS ORDERED: PREDNISONE 20 M20 M1 PO (12:02)
[2020-08-05] MEDS ORDERED: LANTUS SUBQ (12:02)
[2020-08-05] MEDS ORDERED: NYSTATIN100000 UNI SW&SWALLOW (12:02)
[2020-08-05] MEDS ORDERED: HUMALOG100 UNIT/1 SUBQ ×2 (12:02)
[2020-08-05] MEDS ORDERED: MERREM1 GM IV (12:06)
[2020-08-05] MEDS ORDERED: LASIX 40 MG TAB40 M2 PO (12:06)
--- NOTE | 2020-08-05 15:52 | NUR ---
WOUND CARE F/U; RN CALLED AND STATED THE VAC WAS ALARMING. UPON ASSESSMENT THE WHOLE DRESSING WAS DISLOGGED. I CLEANSED THE WOUND WITH WOUND CLEANSER AND APPLIED A NEW BRIDGE XL DRESSING, 125MMHG ACHIEVED AND STABLE. REPORTED THIS TO THE RN. DR RAMOS ASSESSED THE WOUND AND i REAPPLIED THE DRESSING
[2020-08-05 16:00] VITALS: BP 109/48
--- NOTE | 2020-08-05 16:39 | NUR ---
Patient discharged to 5N. RN practioner sp with patient regarding tolerance of 5N. no futher needs
== END 2020-08-05 16:38 | DRG 871 ==
LOC: ICU 11:24 → 2N 11:24 → ICU 12:13 → 2N 07-31 18:02
PROVIDERS: Internal Medicine; Internal Medicine Pulmonary Disease; Nurse Practitioner; Specialist; ADMIT Internal Medicine; ATTEND Internal Medicine
DX: A41.9 Sepsis, unspecified organism (principal); L89.93 Pressure ulcer of unspecified site, stage 3; J18.9 Pneumonia, unspecified organism; E43 Unspecified severe protein-calorie malnutrition; J96.21 Acute and chronic respiratory failure with hypoxia; J44.0 Chronic obstructive pulmonary disease with (acute) lower respiratory infection; N17.9 Acute kidney failure, unspecified; M31.9 Necrotizing vasculopathy, unspecified; G72.81 Critical illness myopathy; G93.40 Encephalopathy, unspecified; J44.1 Chronic obstructive pulmonary disease with (acute) exacerbation; Z68.41 Body mass index [BMI] 40.0-44.9, adult; I13.0 Hypertensive heart and chronic kidney disease with heart failure and stage 1 through stage 4 chronic kidney disease, or unspecified chronic kidney disease; G47.33 Obstructive sleep apnea (adult) (pediatric); E11.22 Type 2 diabetes mellitus with diabetic chronic kidney disease; E11.42 Type 2 diabetes mellitus with diabetic polyneuropathy; E78.5 Hyperlipidemia, unspecified; J45.909 Unspecified asthma, uncomplicated; I25.10 Atherosclerotic heart disease of native coronary artery without angina pectoris; M19.90 Unspecified osteoarthritis, unspecified site; N18.30 Chronic kidney disease, stage 3 unspecified; I27.20 Pulmonary hypertension, unspecified; N40.0 Benign prostatic hyperplasia without lower urinary tract symptoms; D63.8 Anemia in other chronic diseases classified elsewhere; R53.81 Other malaise; E87.6 Hypokalemia; E83.42 Hypomagnesemia; E11.43 Type 2 diabetes mellitus with diabetic autonomic (poly)neuropathy; K31.84 Gastroparesis; F43.10 Post-traumatic stress disorder, unspecified; I27.81 Cor pulmonale (chronic); I50.9 Heart failure, unspecified; G89.29 Other chronic pain; M54.9 Dorsalgia, unspecified; E66.01 Morbid (severe) obesity due to excess calories; Z99.81 Dependence on supplemental oxygen; Z86.718 Personal history of other venous thrombosis and embolism; Z87.891 Personal history of nicotine dependence; Z88.0 Allergy status to penicillin; Z88.8 Allergy status to other drugs, medicaments and biological substances; Z88.6 Allergy status to analgesic agent; Z88.1 Allergy status to other antibiotic agents; Z91.010 Allergy to peanuts
CPT/HCPCS: 10081; 10203; 10204

== ENCOUNTER 2020-08-05 10:01 | Inpatient (IN) | payer OTHER ==
[~2020-08-05] VITALS: Ht 180.3 cm; Wt 149.7 kg
[2020-08-05] MEDS ORDERED: PREDNISONE 20 M20 M1 PO (12:02)
[2020-08-05] MEDS ORDERED: IPRAT-ALBUT 0.5-3 ML INH (12:02)
[2020-08-05] MEDS ORDERED: LANTUS SUBQ (12:02)
[2020-08-05] MEDS ORDERED: HUMALOG100 UNIT/1 SUBQ ×2 (12:02)
[2020-08-05] MEDS ORDERED: METHOCARBAMOL500 M2 PO (12:02)
[2020-08-05] MEDS ORDERED: NYSTATIN100000 UNI SW&SWALLOW (12:02)
[2020-08-05] MEDS ORDERED: LASIX 40 MG TAB40 M2 PO (12:06)
[2020-08-05] MEDS ORDERED: MERREM1 GM IV (12:06)
[2020-08-05 17:24] VITALS: BP 119/57
--- NOTE | 2020-08-05 18:17 | NUR ---
1630 PATIENT ADMITTED TWO ROOM 504. PATIENT IS ALERT AND ORIENTED X4. PATIENT OLSEN'S, GOLD TOOLER ARE EQUAL. LUNGS ARE COARSE AND DEMINISHED. PATIENT REMAINS ON RESPIRATORY TX. PATIENT IS UP IN THE W/C. PATIENT IS ON 02 AT 3L PER N/C. PATIENT HAS CORONA TO DD, DRAINING SUZANNA COLORED URINE. PATIENT HAS MIDLINE IN THE RIGHT AC. PATIENT HAS WOUND VAC TO HIS COCCYX AREA. PATIENT IS MAX ASSIST OF 2 FROM W/C TO BED WITH GAIT BELT. PATIENT IS TURNED TO HIS LEFT SIDE. FALL AND SAFETY PROTOCOLS IN PLACE. C/O PAIN IN HIS BACK AND HIS COCCYX AREA. AIR LOSS MATTRESS APPPIED TO HIS BED. PLAN PT/OT/ST PEREZ IN AM. WILL CONTINUE TO MONITER.
[2020-08-05 19:12] VITALS: BP 119/67
--- NOTE | 2020-08-06 02:39 | NUR ---
TURNED Q 2 HOURS, LATEST BY HIMSELF UNPROMPTED, SWEATY AT THIS TIME SO BLOOD SUGAR CHECKED AND WAS JUST MORE THAN 200. (AT HS HIS SUGAR WAS ONLY 86 WITH 44 LANTUS SCHEDULED, ORDER FOR ONE TIME DECREASE TO TEN UNITS LANTUS INSULIN AT THAT TIME) WOUND VAC AT 125, PAINFUL SPOT AT LOWER EDGE OF WOUBD-VAC DRESSING, MOISTURE BARRIER APPLIED AND WHITE SPOT UNDER CLEAR DRESSING NOTED TO BE THE SPOT OF PAIN, DECLINES PAIN MED AT THIS TIME. CORONA TO DD, RIGHT MIDLINE PATENT FOR MERREM ANTIBIOTIC
[2020-08-06 05:58] LABS: HEMATOCRIT 27.2 % (42.0-52.0); HEMOGLOBIN 9.1 gm/dL (14.0-18.0); MCH 30.3 pg (26.0-34.0); MCHC 33.4 g/dL (28.0-37.0); MCV 90.7 fL (80.0-100.0); WBC 11.4 thou/uL (4.0-11.0)
[2020-08-06 06:06] LABS: CALCIUM 9.3 mg/dL (8.5-10.1); CREATININE 1.3 mg/dL (0.7-1.3); POTASSIUM 4.2 mmol/L (3.5-5.1)
[2020-08-06 07:35] VITALS: BP 114/58
--- NOTE | 2020-08-06 11:30 | NUR ---
chart review. cm visited with him after st therapy, cm cont to wear face masks and shield. he been to acute rehab here before. he lives in home with , independent prior to going skilled at [facility] prior to coming to hospital acute. had hh with [facility] in past and would use them again. at home, has o2, cane, 4ww and fww. manage own medication and drives vehicle. will cont following as needed for dc needs.
--- NOTE | 2020-08-06 12:10 | NUR ---
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 Dx of encephalopathy with critical illness myopathy. S/P wound vac placement on 07/31 for stage 3 sacral wound. Weights widely fluctuating past several days with 3+ ankle edema. Currently up 23# from baseline weight but will follow trends. Is on lasix. Endocrinology managing BG with insulin needs decreasing some. BG 86-229. Continues on steroid. Pt has and has had an extremely good appetite over admit, 100% of the majority of meals, snacks and supplements ( ensure max BID ) on Heart healthy, carb controlled diet. Understands high protein needs/source. Allowing double eggs at breakfast per request. Vitamin D supplement for deficiency. Change to low nutrition risk.
--- NOTE | 2020-08-06 15:06 | NUR ---
ASSUMED CARE AT 0700. PT HAD AN UNEVENTFUL NIGHT AND SLEPT FAIRLY WELL. PAIN IS STABLE AND CONTROLLED WITH OXYCODONE. PAIN IS MORE WITH SITTING ON THE CHAIR. WOUND VAC TO SACRAL WOUND INSITU WITH 125MM HG CONTINUOUS SUCTION. NEWTON WITH WOUND, SAW WOUND WITH NO NEW ORDERS. CONSULT CALLED TO ID, ENDOCRINOLOGY, WOUND AND PULMONARY. APPETITE GOOD. HAD A LARGE BM TODAY. ACHS WITH INSULIN GIVEN. PARTICIPATING WITH THERAPY. ON 02 AT 3L, SATING AT 97%, RT AND PULMONARY FOLLOWING. WILL CONT TO MONITOR.
--- NOTE | 2020-08-06 16:17 | NUR ---
I have reviewed the documentation by JIMY MATHEW from 08/06/20 to 08/06/20 and I concur with it. CHIP GONZALEZ, PT, DPT
[2020-08-06 19:26] VITALS: BP 143/74
--- NOTE | 2020-08-07 04:34 | NUR ---
ASSUMED CARE OF PT ON 08/06/20 AT 1915. PT IS A&OX3. IS ON 3L OF O2/NC. IS STABLE. REPORTS PAIN IN BACK THAT IS BEING MANAGED WITH ORAL & THERAPUETIC TECHNIQUES. IS TURNED Q2H, BUT REFUSES AT TIMES. WOUND VAC IN PLACE TO SACRAL AREA. PT IS UP WITH 1 ASSIST, GB, WALKER. FALL PRECAUTIONS & HOURLY ROUNDING MAINTAINED THIS SHIFT. LABS & VITALS REVIWED. CALL LIGHT WITHIN REACH. WILL CONTINUE TO MONITOR.
[2020-08-07 08:00] VITALS: BP 117/94
--- NOTE | 2020-08-07 16:01 | NUR ---
I have reviewed the documentation by JIMY MATHEW from 08/07/20 to 08/07/20 and I concur with it. CHIP GONZALEZ, PT, DPT
--- NOTE | 2020-08-07 16:50 | NUR ---
ASUSMED CARE OF PT AT 0700. PT IS A&OX4 AND VITAL SIGNS ARE STABLE. WOUND VAC TO SACRUM. ACCU CHECKS ACHS, MANAGED WITH INSULIN PER ORDERS. PAIN TO BACK REPORTED BY PATIENT AND MANAGED WITH PO MEDICATIONS. CORONA CATHETER IN PLACE AND DRAINING CLEAR YELLOW URINE. RIGHT UA MIDLINE IN PLACE FOR ABX. GENERALIZED EDEMA NOTED. PT PARTICIPATED IN SCHEDULED THERAPIES. PT REPORTED COUGH WITH SOB THIS AFTERNOON. DRAMA CRITIC NOTIFIED, ORDERS OBTAINED, PT REPORTED RELIEF. FALL PRECAUTIONS IN PLACE AND NURSING WILL CONTINUE TO MONITOR.
[2020-08-07 19:27] VITALS: BP 127/66
--- NOTE | 2020-08-08 00:31 | NUR ---
PAIN PILL WITH HS MEDS WHICH INCLUDE ROBAXIN AND GABAPENTIN, SLEEPING NOW, BUT HAS BEEN TURNING SELF SIDE TO SIDE APPROX HOURLY SO FAR THIS SHIFT. MJ [facility] PATENT FOR IV ANTIBIOTICS. 40 UNITS OF LANTUS INSULIN GIVEN AT HS WITH BLOOD SUGAR OF 137. FREQUENT OBSERVATION IN ROOM 504 NEAR DESK, RESTING WELL
--- NOTE | 2020-08-08 02:40 | NUR ---
HAS BEEN SLEEPING, TURNED TO LEFT SIDE WITH ASSIST. STAT-LOCK REPLACED
[2020-08-08 08:00] VITALS: BP 114/62
--- NOTE | 2020-08-08 12:30 | NUR ---
WOUND CARE F/U; I AM HERE TODAY FOR A WOUND VAC DRESSING CHANGE. THE SEAL IS INTACT. THERE IS NO ODOR. THE ESCORIATION TO THE PERIWOUND AT 6;00 IS IMPROVING WITH DUODERM USE. DR RAMOS AND CASSIA KONG ARE HERE TODAY TO ASSESS THE WOUND. THE WOUND IS CLINICALLY BETTER. DICUSSED WITH ROX
[2020-08-08 13:29] LABS: URINE BILIRUBIN NEGATIVE (Negative); URINE BLOOD 3+ (Negative); URINE CLARITY CLEAR; URINE COLOR YELLOW; URINE GLUCOSE-RANDOM* NEGATIVE (Negative); URINE KETONES NEGATIVE (Negative); URINE LEUKOCYTES-REFLEX NEGATIVE (Negative); URINE NITRITE-REFLEX NEGATIVE (Negative); URINE PROTEIN (DIPSTICK) NEGATIVE (Negative); URINE UROBILINOGEN 0.2 E.U./dl (0.2-1.0)
[2020-08-08 13:42] LABS: BACTERIA-REFLEX None Seen /HPF (None Seen); CASTS None Seen /LPF (None Seen); SQUAMOUS 0-3 Few /LPF (0-3); URINE RBC >20 Many /HPF (0-2); URINE WBC-REFLEX 0-5 Rare /HPF (0-5)
[2020-08-08 13:43] LABS: CRYSTALS None Seen /LPF (None Seen)
--- NOTE | 2020-08-08 15:15 | NUR ---
ASSUMED CARE AT 0700. PT HAD AN UNEVENTFUL NIGHT AND SLEPT FAIRLY WELL. PAIN IS MANAGEABLE AND TOLERABLE AND DOES NOT REQUIRE ANY FOR NOW. HAD A COUPLE OF LARGE BM TODAY. APPETITE GOOD. PT REPORTED SORENESS AND BURNING AT CATHETER SITE. PER STAFF, PT HAD A SMALL CLOT IN CATHETER AND ORDERS RECEIVED TO IRRIGATE CORONA AND TO REMOVE CORONA THEREAFTER. UA AND CULTURE COLLECTED AND SENT. CORONA REMOVED AT 1230 AND TO VOID WITHIN 6 HOURS. PT EDUCATED AND VERBALIZES UNDERSTANDING. KENYON WITH WOUND CARE CHANGED THE WOUND VAC TODAY. APPETITE GOOD, BLOOD SUGAR DOCUMENTED AND INSULIN GIVEN. PROGRESSING WITH THERAPY, CONT TO MONITOR.
--- NOTE | 2020-08-08 15:16 | NUR ---
I have reviewed the documentation by JIMY MATHEW from 08/08/20 to 08/08/20 and I concur with it. CHIP GONZALEZ, PT, DPT
[2020-08-08 20:32] VITALS: BP 109/55
--- NOTE | 2020-08-09 01:58 | NUR ---
ASSUMED CARE AT 2129 PATIENT WAS TURNING SELF TO RIGHT SIDE. TOLERATING MULTIPLE PILLS WITH GOOD SIPS OF WATER. 40 UNITS OF LANTUS WITH BLOOD SUGAR OF 225 AND EATING 3 KIERA CRACKERS AT HS. RIGHT UPPER ARM MIDLINE PATENT FOR IV ANTIBIOTICS, USING URINAL WELL 400-700 CC AT A TIME. WOUND VAC PATENT AT 125 CONTINUOUSLY, LOW AIR LOSS THERAPY CONTINUES. PAIN MED PER REQUEST AT HS
[2020-08-09 06:08] LABS: HEMATOCRIT 29.8 % (42.0-52.0); HEMOGLOBIN 9.9 gm/dL (14.0-18.0); MCH 30.5 pg (26.0-34.0); MCHC 33.4 g/dL (28.0-37.0); MCV 91.4 fL (80.0-100.0); PLATELET COUNT 313 thou/uL (150-400); RBC 3.25 mil/uL (4.50-6.00); RDW 15.7 % (10.5-14.5)
[2020-08-09 06:24] LABS: CALCIUM 9.3 mg/dL (8.5-10.1); CREATININE 1.2 mg/dL (0.7-1.3); MAGNESIUM 1.9 mg/dL (1.8-2.4); POTASSIUM 3.4 mmol/L (3.5-5.1)
[2020-08-09 07:34] LABS: ABSOLUTE NEUTROPHILS 5.4 thou/uL (1.4-8.2); PLATELET ESTIMATE NORMAL
[2020-08-09 08:00] VITALS: BP 126/49
--- NOTE | 2020-08-09 09:55 | NUR ---
ASSUMED CARE AT 0700. PATIENT IS ALERT AND ORIENTEDX4. PATIENT OLSEN'S, FIELD SERVICER AER EQUAL. LUNGS ARE COARSE AND DEMINISHED. ABD IS SOFT WITH BSX4. PATIENT HAS WOUND VAC TO HIS COCCYX AREA. UP ON SIDE OF BED FOR MEALS. PATIENT HAS MIDLINE IN HIS RIGHT ARM. FALL AND SAFETY PROTOCOLS IN PLACE. C/O PAIN IN HIS BACK AND COCCYX AREA. MEIDCATED WITH PRN PAIN MED. CONTINUES TO PROGRESS SLOWLY TOWARDS D/C GOALS. WILL CONTINUE TO MONITER.
[2020-08-09 19:13] VITALS: BP 117/56
--- NOTE | 2020-08-10 04:00 | NUR ---
ASSUMED PT CARE AT AROUND 1915 HRS. PT IS ALERT AND ORIENTED, PLEASANT. DENIES PAIN. TAKES MEDS OKAY. USES HIS URINAL, VOIDING ADEQUATELY. DENIES SOA.AFEBRILE. WOUND VAC TO BUTTOCK WOUND IS OKAY.CALLS APPROPRIATELY.
[2020-08-10 11:30] LABS: ABSOLUTE NEUTROPHILS 11.3 thou/uL (1.4-8.2); BASOPHILS 0.5 % (0.0-2.0); EOSINOPHILS 0.6 % (0.0-3.0); HEMATOCRIT 32.6 % (42.0-52.0); HEMOGLOBIN 10.4 gm/dL (14.0-18.0); LYMPHOCYTES 8.6 % (24.0-44.0); MCH 29.6 pg (26.0-34.0); MCHC 32.1 g/dL (28.0-37.0); MCV 92.2 fL (80.0-100.0); MONOCYTES 4.7 % (1.0-8.0); PLATELET COUNT 344 thou/uL (150-400); POLYS 85.6 % (36.0-66.0); RBC 3.53 mil/uL (4.50-6.00); RDW 15.5 % (10.5-14.5); WBC 13.2 thou/uL (4.0-11.0)
[2020-08-10 12:20] LABS: ALBUMIN 2.8 g/dL (3.4-5.0); CALCIUM 9.3 mg/dL (8.5-10.1); CREATININE 1.2 mg/dL (0.7-1.3); MAGNESIUM 1.5 mg/dL (1.8-2.4); POTASSIUM 4.4 mmol/L (3.5-5.1); TOTAL BILIRUBIN 0.4 mg/dL (0.2-1.0); TOTAL PROTEIN 6.7 g/dL (6.4-8.2)
[2020-08-10 12:35] VITALS: BP 109/50
--- NOTE | 2020-08-10 18:26 | NUR ---
PATIENT CARE ASSUMED AT 0700 - ALERT ADND ORIENTED. PAIN HAS BEEN STABLE WITH MEDICATION. PATIENT STATES NEED TO AMBULATE MORE WITH STAFF - APPETITE GOOD WITH COMPLETION OF MEALS. LUNGS DIMINISHED WHEN AUSCULATATED. IV PATENT. ANTIBIOTICS HUNG EVERY 8 HOURS. AMBULATED FOR AN HOUR WITH OT - TOLERATED WELL WITH WALKER AND GAIT BELT. WOUND VAC ON -
[2020-08-10 19:12] VITALS: BP 128/59
--- NOTE | 2020-08-11 02:04 | NUR ---
Assumed care on 08/10/20 @ 19:30, in bed wound vac running @ 125mg wiht wound on sacrum. Tolerates IV antibiotics and P.O. meds taken whole with water. IV S. in R upper arm. Compliant with Breathing Tx, A&Ox 4, pleasant affect noted, able to voice needs and desires. Lung sounds auscultated diminished bilat. Requests PRN Lorazepam. Follow up patient is noted to be sleeping, eyes closed, respirations even and unlabored. Will continue to monitor as per unit protocol for safety and comfort.
[2020-08-11 08:00] VITALS: BP 120/58
--- NOTE | 2020-08-11 11:08 | NUR ---
ASSUMED CARE AT 0700. PATIENT IS ALERT AND ORIENTED X4. PATIENT OLSEN, HUMAN RESOURCES MGR ARE EQUAL. LUNGS ARE COARSE AND DEMINIAHED. PATIENT CONTINUES ON 02 AT 2L PER N/C. PATIENT CONTINUES ON RESPIRATORY TX ORDERED. PATIENT HAS WOUND VAC TO HIS COCCYX. UP WITH ASSIST OF 1 STAFF, GAIT BELT, AND WALKER TO [facility]. PT UP ON SIDE OF THE BED FOR MEALS. FALL AND SAFETY PROTOCOLS IN PLACE. C/O PAIN IN HIS BACK AND COCCYX AREA. MEDICATED WITH PRN PAIN MED. CONTINUES TO PROGRESS TOWARDS D/C GOALS. WILL CONTINUE TO MONITER.
--- NOTE | 2020-08-11 12:16 | NUR ---
WOUND CONSULT; ROUNDING WITH DR RAMOS TODAY. THE PATIENT AND HIS WOUND CONTINUE TO IMPROVE. NO S/S OF INFECTION. THE PATIENT DOES WELL OFF LOADING THE AREA WELL PARTICIPATING WITH THERAPY. THE PERIWOUND ESCORIATION HAS RESOLVED. DISCUSSED WITH RN NO CHANGES.
[2020-08-11 19:25] VITALS: BP 127/65
--- NOTE | 2020-08-12 08:26 | NUR ---
Assumed care on 08/11/20 @ 19:30, Cooperated with IV abtibiotic, however refused swish and spit Nystatin. Insisted on Mirilax being mixed in orange juice, education provided regarding the high sugar content of Susan and his blood sugar evel of 230, however stated that if it was in water he would just refuse it. Used urinal for multiple outputs over the shift. Had a BM on 08/12. Wound vac operating @ 125.
[2020-08-12 09:24] VITALS: BP 132/75
[2020-08-12 09:26] VITALS: BP 92/58
--- NOTE | 2020-08-12 13:55 | NUR ---
team meeting, reccommendation: cont on iv abx q 8hr, wound care mwf. anticipated , poor insight. for trainning with therapy. eval medications of sedating effects
--- NOTE | 2020-08-12 14:25 | NUR ---
Asked to do BS on pt by assigned RN. After several attempts, BG of 60 obtained. Pt. alert and talkive without s/o acute distress. Gave 4 oz of OJ. RN back on unit. Pt. attempting to eat part of lunch and drank additional OJ. Pt. states he feels "shaky" but continues to converse. Able to assist caregivers pulling him up in bed. VASCULAR SONOGRAPHER doing 2nd BG at this time.
--- NOTE | 2020-08-12 16:03 | NUR ---
ASSUMED CARE AT 0700. PT WAS UP AT NIGHT AND WAS ABLE TO GET SOME REST BUT GOT UP THIS MORNING FEELING LOTS OF PAIN. PERCOCET GIVEN. PT REFUSING THERAPY AND EDUCATION GIVEN AND RIVAS KELLY INFORMED AND ADDED LIDOCAINE PATCH TO SITE. KENYON WITH WOUND NURSE CHECKED ON WOUND THERE IS A SLIGHT LEAK. PT APPETITE IS GOOD AND ATE 100% OF HIS BREAKFAST AND SKIPPED LUNCH HE WAS ASLEEP AND DID NOT EAT MUCH. BLOOD SUGAR DROPPED AT LUNCH TIME AND HYPOGLYCEMIA PROTOCOL INITIATED AND RECHECKED BG TO 86. PT HAD EXPERIENCE SYMPTOMS AND RELIEF WITH ORANGE JUICE AND KIERA CRACKERS. PT EDUCATED TO NOT SKIP MEALS AND WILL RECHECK BG AT DINNER TIME. SLOW PROGRESSION TOWARDS GOAL AND CM AND THERAPY WILL CONTACT FOR FAMILY TRAINING. TENTATIVE DC ON 08/22.
[2020-08-12 19:50] VITALS: BP 108/39
[2020-08-12 20:58] VITALS: BP 95/45
--- NOTE | 2020-08-13 04:27 | NUR ---
ASSUMED CARE APPROX 1900 EVENING 08/12. PT DOZING OFF AND ON AT CHANGE OF SHIFT. PTS WOUND VAC OFF AND LOOSE BEFORE CHANGE OF SHIFT. DR CHRISTIANSON ROUNDED ON PT APPROX HS AND AWARE OF SUCH. WET/DRY DRESSING CHANGE DONE AND WOUND CARE TO BE NOTIFIED TODAY FOR WED DRESSING CHANGE AND HOOK WOUND VAC BACK UP. PT TOOK HS MEDS WITH NO PROBLEMS AND APPEARS TO BE SLEEPING SOUNDLY WITH HOURLY ROUNDING CHECKS. BED ALARM ON AND CALL LIGHT IN REACH. WILL CONTINUE TO MONITOR.
[2020-08-13 08:00] VITALS: BP 155/107
--- NOTE | 2020-08-13 12:39 | NUR ---
ASSUMED CARE AT 0700. PATIENT IS ALERT AND ORIENTED X4. PATIENT OLSEN'S, JANITORIAL CLEANER ARE EQUAL. LUNGS ARE COARSE AND DEMINISHED. PATIENT CONTINUES ON 02 AT 3L PER N/C. PATIENT REMAINS ON RESPIRATORY TX. ABD IS SOFT WITH BSX4. PATIENT HAD 2 BM'S TODAY, WHICH WERE LOOSE. UP IN THE W/C FOR MEALS. FALL AND SAFETY PROTOCOLS IN PLACE. C/O PAIN IN HIS BACK AND COCCYX. MEDICATED WITH PRN PAIN MED. CONTINUES TO PROGRESS TOWARDS D/C GOALS. WILL CONTINUE TO MONITER.
--- NOTE | 2020-08-13 13:30 | NUR ---
Nutrition followup: Pt continues on rehab unit with excellent intake, 100% meals and supplements-Ensure max BID. Recent weights relatively stable up significantly from baseline weights. Continues on lasix, vitamin D, glargine, SSI, MVI. BG 91-162. BM 08/12. Wound vac to stage 3 sacral wound. Pt eating over 115 gm protein daily per estimation. Continue as low nutrition risk.
--- NOTE | 2020-08-13 14:51 | NUR ---
WOUND CARE F/U; I AM HERE TODAY TO ASSESS THE WOUND AND TO REAPPLY THE VAC. THE QUALITY OF THE TISSUE CONTINUES TO IMPROVE AND THE DRAINAGE HAS DECREASED. THE PATIENT IS DOING WELL WITH HIS PRESENT. THERE IS NO ODOR OR ANY OTHER S/S OF INFECTION. THE PERIWOUND AREA CONTINUES TO INPROVE USING DUODERM. RECOMMENDATION; CONTINUE VAC THERAPY. RN PRESENT
--- NOTE | 2020-08-13 16:35 | NUR ---
FAXED REFERRAL TO [facility] RECEIVED CONFIRMATION AND LEFT MSG WITH JEREMY IN INTAKE. DP TO FOLLOW.
[2020-08-13 20:01] VITALS: BP 122/68
--- NOTE | 2020-08-14 01:40 | NUR ---
TURNED SELF TO SIDE WITH MIN SLIDE TO SIDE AND UP TO ASSIST. LARGE INCONTINENT BM WHICH PATIENT NOTICED AN EXTREME STINGING FEELING. 40 UNITS OF LANTUS INSULIN GIVEN AT HS FOR BLOOD SUGAR OF 231, SNACK OF KIERA CRACKER AND PUDDING PER REQUEST AT SAME TIME. MJ MIDLINE PATENT FOR ANTIBIOTIC. RESTING WELL. WOUND VAC AT CONTINUOUS 125
[2020-08-14 08:00] VITALS: BP 96/61
--- NOTE | 2020-08-14 11:10 | NUR ---
cm visited with wound care nurse, he will check into wound vac if chitra is going home next week. still need to know if he will requirer iv abx at home? 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
[2020-08-14 11:12] VITALS: BP 96/61
[2020-08-14 15:00] VITALS: BP 123/70
--- NOTE | 2020-08-14 15:35 | NUR ---
DID REPORT "BUTT" PAIN RATED A 7 ON 1-10 SCALE AT 0900-REQUESTING PRN PAIN MEDICATION PRIOR TO PT-PERCOCET 5/325MG GIVEN PO PRN FOR ABOVE REPORTED WITH VERBALIZED GOOD RESULTS AT O945 WHEN REASSESSED RATES PAIN A 4. APPETITE GOOD. SPENDS MAJORITY OF SHIFT SITTING ON SIDE OF BED OR IN RECLINER WATCHING TV. ALERT AND ORIENTED X 3.WEARING O2 VIA NC AT LITERS AND DENIES SHORTNESS OF BREATH, NBO NOTED OR REPORTED COUGH. USING URINAL TO VOID-WILL AMBULATE SHORT DISTANCES IN ROOM WITH ASSIST X1,ROLLER WALKER AND GAIT BELT. WOUND VAC INTACCT. DOES HAVE PICC LINE INUPPER RIGHT ARM-DRESSING INTACT,FLUSHING WELL-NO REDNESS,SWELLING AT SITE. ACCUCHECK AT 0730 235-AT 1130 159-INSULIN Administered per md order
--- NOTE | 2020-08-14 18:35 | NUR ---
BLOOD SUGAR AT 1645 63-PT IS ALERT/TALKING DENIES FEELING DIZZINESS,LIGHTHEADNESS,DIAPHORESIS,SKIN WARM AND DRY-GIVEN SNACK OF MILK AND YOGURT AND APPROX 5 MINUTES LATER MEAL CAME AND ATE 100 PERCENT OF MEAL-BLOOD SUGAR RECHECK AT 1710 IS 105. IS REQUESTING PAIN PILL FOR "BUTT HURTING" RATED A 7 ON 1-10 SCALE. PERCOCET 10/325 PO PRN FOR REPORTED WITH GOOD RELIEF APPROX 40 MINUTES LATER IS IN BED RESTING QUIETLY WITH EYES CLOSED.
[2020-08-14 19:37] VITALS: BP 125/52
--- NOTE | 2020-08-15 02:13 | NUR ---
RESTING WELL, TURNED SIDED TO SIDE [facility] STAFF ASSIST AND ENCOURAGEMENT, LOW AIR LOSS THERAPY CONTINUES. IV ANTIBIOTICS PER MJ MIDLINE, PATIENT SWALLOWS MEDS WITH WATER WITHOUT ANY PROBLEM. LANTUS AT HS WITH BLOOD SUGAR BACK UP TO 177 AFTER LOW OF 63 BEFORE DINNER AND 77 BEFORE DINNER THE DAY BEFORE, HS SNACK PER REQUEST. WOUND VAC AT 125 WITH BORDERS INTACT
[2020-08-15 06:51] LABS: HEMATOCRIT 30.5 % (42.0-52.0); RDW 15.4 % (10.5-14.5); WBC 8.4 thou/uL (4.0-11.0)
[2020-08-15 06:54] LABS: ABSOLUTE NEUTROPHILS 5.5 thou/uL (1.4-8.2); BASOPHILS 0.5 % (0.0-2.0); EOSINOPHILS 2.3 % (0.0-3.0); HEMOGLOBIN 10.1 gm/dL (14.0-18.0); LYMPHOCYTES 22.9 % (24.0-44.0); MCH 29.9 pg (26.0-34.0); MCHC 33.2 g/dL (28.0-37.0); MCV 90.1 fL (80.0-100.0); MONOCYTES 9.8 % (1.0-8.0); PLATELET COUNT 224 thou/uL (150-400); POLYS 64.5 % (36.0-66.0); RBC 3.39 mil/uL (4.50-6.00)
[2020-08-15 07:10] LABS: CALCIUM 9.3 mg/dL (8.5-10.1); CREATININE 1.2 mg/dL (0.7-1.3); MAGNESIUM 1.9 mg/dL (1.8-2.4); POTASSIUM 3.6 mmol/L (3.5-5.1)
[2020-08-15 08:04] VITALS: BP 117/64
--- NOTE | 2020-08-15 13:28 | NUR ---
ASSUMED CARE AT 0700. PT HAD AN UNEVENTFUL NIGHT AND SLEPT FAIRLY WELL. REPORTED PAIN IN HIS BUTTOCKS AND WANTS HIS PAIN MED PRIOR TO THERAPY. PT SEEMS MORE ALERT. BLOOD SUGAR CHECKED AND MEDICATED WITH INSULIN. APPETITE GOOD. HAD COUPLE OF LARGE BM. OCCULT STOOL SENT. PARTICIPATING WITH THERAPY. PROGRESSING TOWARDS GOAL. AT BEDSIDE FOR TEACHING. PLAN FOR DISCHARGE HOME NEXT WEEK. CONT TO MONITOR.
--- NOTE | 2020-08-15 13:49 | PLAN ---
[facility] [place] [address] [place] [address] REHAB UNIT PLAN OF CARE Name: CARRIE LESTER Room #: 504-1 ADM IN M.R.#: [id number] Admission: 08/05/20 Attend Phys: Cuate Guevara MD Discharge: Date of : 47 Report #: [id number] THIS REPORT FOR: //name// CC: Cuate Pacheco DATE OF SERVICE: 08/06/2020 PROGRESS NOTE AND OVERALL PLAN OF CARE SUBJECTIVE: The patient has been readmitted for acute in-hospital inpatient rehabilitation. Please see the full documented history and physical. He was discharged off the [facility]hab [facility] on 07/30/2020 when he had acute respiratory failure, fever and fluid overload, and was transferred back to the acute care unit for further care. He was diuresed, given IV antibiotics and a wound VAC was placed. Labs have improved. No further fever and he was felt to be ready for readmission. No specific complaints today. He has the wound VAC in place to his sacrum. He is on nasal cannula O2. He is appropriate. Upper body strength is probably a grade 4- to 3+/5. Lower extremity strength is probably a grade 4- to 3+/5. No focal calf swelling. He has been working on some sitting at the edge of the bed. We are trying to work on some sit to stand transfers to try to improve his overall endurance and strength. Occupational therapies working on upper body strengthening as well as ADL independence and maximizing his ability to do his ADLs. ASSESSMENT: 1. Critical illness myopathy. 2. Metabolic encephalopathy, which has improved. 3. Sepsis with bacteremia. 4. Large decubitus ulcer of the sacrum with phlegmon, status post wound VAC, 07/31/2020. 5. Acute respiratory failure, resolving. 6. Chronic obstructive pulmonary disease. 7. Obstructive sleep apnea. 8. Obesity. 9. Diabetes mellitus type 2. 10. Hypertension. 11. Protein-calorie malnutrition. PLAN: The overall plan of care includes: 1. Estimated length of stay, which is probably going to be at least 2-3 weeks pending progress. 2. Medical prognosis is reasonably good. 3. Anticipated interventions includes the interdisciplinary acute inpatient [facility] [address] [place] [address] REHAB UNIT PLAN OF CARE Name: CARRIE LESTER Room #: 504-1 ADM IN [facility].#: [id number] Admission: 08/05/20 Attend Phys: Cuate Guevara MD Discharge: Date of : 47 Report #: [id number] rehabilitation program. 4. Anticipated functional outcomes would be for the patient to hopefully improve as far as basic sitting tolerance, basic transfers. Hopefully, he will stand and take a few steps as well as independence with ADLs and improvement in cognition, so that he can return back to the home setting with his . Speech therapy has noted [id number] comprehensive deficits. 5. Discharge destination would be back home with . 6. Expected therapy by discipline includes PT, OT and speech 1 hour per day each five days a week throughout the duration of the acute inpatient rehabilitation stay. The patient's prognosis for significant practical improvement within a reasonable period of time appears good. Given the patient's complex medical condition and the risk of further medical complications, rehabilitation services cannot be safely provided at a lower level of care such as a penitentiary facility. <ELECTRONICALLY SIGNED> By: Cuate Guevara MD 08/15/20 1349 [id number] Cuate Guevara MD /nt
--- NOTE | 2020-08-15 13:49 | PLAN ---
[facility] [address] [place] [address] REHAB UNIT PLAN OF CARE Name: CARRIE LESTER Room #: 504-1 ADM IN M.R.#: [id number] Admission: 08/05/20 Attend Phys: Cuate Guevara MD Discharge: Date of : 47 Report #: [id number] THIS REPORT FOR: //name// CC: Cuate Pacheco DATE OF SERVICE: 08/08/2020 PROGRESS NOTE/OVERALL PLAN OF CARE SUBJECTIVE: The patient is seen back today in followup. Overall, he is doing reasonably well. He had his wound dressed earlier today by wound care. His Mas was irrigated and the plan is to try to remove it today. He did have a small BM. He is on nasal cannula O2, which is premorbid. Lower extremity edema appears to be improving some. He is transferring with min assist and is ambulating 10 feet contact guard with a front-wheeled walker. Lower body dressing is moderate assistance. He has moderate cognitive deficits, moderate memory deficits. ASSESSMENT: 1. Critical illness myopathy. 2. Metabolic encephalopathy, improving. 3. Sepsis with bacteremia. 4. Large decubitus ulcer, sacrum with phlegmon, status post wound VAC on 07/31/2020. 5. Acute respiratory failure, resolving. 6. Chronic obstructive pulmonary disease. 7. Obstructive sleep apnea. 8. Obesity. 9. Diabetes mellitus type 2. 10. Hypertension. 11. Protein-calorie malnutrition. PLAN: The overall plan of care includes: 1. Estimated length of stay is probably around 2 weeks, pending progress. 2. Medical prognosis is reasonably good. 3. Anticipated interventions includes the interdisciplinary acute inpatient program. 4. Anticipated functional outcomes are for the patient to hopefully improve with sitting tolerance. He is already ambulating a short distance with a walker and the goals to further improve in that regard. We will need to do training with the as we had done to some extent before. 5. Discharge destination would be back home with . 6. Expected therapy by discipline includes PT, OT and speech 1 hour per day each five days a week throughout the duration of the acute inpatient rehabilitation stay. Neuropsychology is also involved. The patient's prognosis [facility] [address] [place] [address] REHAB UNIT PLAN OF CARE Name: CARRIE LESTER Room #: 504-1 ADM IN [facility].#: [id number] Admission: 08/05/20 Attend Phys: Cuate Guevara MD Discharge: Date of : 47 Report #: [id number] for significant practical improvement within a reasonable period of time appears good. Given the patient's complex medical condition and risk of further medical complications, rehabilitation services cannot be safely provided at a lower level of care such as longterm facility. <ELECTRONICALLY SIGNED> By: Cuate Guevara MD 08/15/20 1349 [id number] Cuate Guevara MD /PMT
--- NOTE | 2020-08-15 16:39 | NUR ---
VASCULAR ACCESS CALLED, CURRENT MIDLINE LEAKING FROM SITE, REMOVED. NEW MIDLINE INSERTED VETO BASILIC WAS WIDELY PATENT WITH USG. DISCUSSED BENEFITS AND RISK WITH PT,VERBALIZED UNDERSTANDING AND GAVE CONSENT. PT TOLERATED WELL. NEW ML RELEASED FOR IMMEDIATE USE PER PROTOCOL TO RN.
[2020-08-15 19:22] VITALS: BP 147/68
--- NOTE | 2020-08-16 01:53 | NUR ---
Patient is alert and oriented x3, with a some scttered moments of confusion and/or incoherence especially when he just wakes up from sleep. He is able to make needs known and mostly responds appropriately to questions and stimuli. Humberto was compliant with all his night meds as well as his Insulin after blood sugar was checked. Patient experiences some shortness of air with activity and has a cough for which micinex is administered to help clear lungs. His goal is to be able to get better and go home as soon as possible,
[2020-08-16 07:20] VITALS: BP 103/67
--- NOTE | 2020-08-16 15:25 | NUR ---
ASSUMED CARE AT 0700. PT HAD AN UNEVENTFUL NIGHT AND SLEPT FAIRLY WELL. COMPLAINED OF PAIN AND WAS GIVEN AT SHIFT CHANGE. PT SEEMS CONFUSED OFF AND ON DURING THE SHIFT. PT WAS GIVEN PERCOCET FOR PAIN. PARTICIPATING IN THERAPY. WOUND VAC INTACT AND FUNCTIONING. APPETITE GOOD, HAD A BOWEL MOVEMENT EARLIER TODAY. PARTICIPATING WITH THERAPY. CONT TO MONITOR.
[2020-08-16 19:27] VITALS: BP 139/66
--- NOTE | 2020-08-17 05:05 | NUR ---
Patient is alert and oriented x3, with some traces of comfusion and/or moments requireing a longer thinking than usual to give an answer or carry oput coherent conversation. Patient was compliant with all night medications including blood sugar checks and Insulin, both long acting (Lantus) and short acting (Lispro on a sliding scale), after which he rested in his room with eyes closed, visible respirations and no signs of distress.
[2020-08-17 08:14] VITALS: BP 109/70
--- NOTE | 2020-08-17 10:23 | NUR ---
ASSUMED CARE AT 0700. ALERT AND ORIENTED X2, WITH SOME CONFUSION. PATIENT OLSEN, LAP RUNNER ARE EQUAL. LUNGS ARE COARSE AND DEMINISHED. 02 AT 3L PER N/C. PATIENT IS A TURN Q2. PATIENT ABD IS SOFT WITH BSX4. PATIENT HAS WOUND VAC TO HIS COCCYX AREA. PATIENT VOIDS SUZANNA COLORED URINE PER URINAL. UP IN BED FOR BREAKFAST. FALL AND SAFETY PROTOCOLS IN PLACE. C/O PAIN IN HIS BACK. LIDOCAINE PATCHES APPLIED. PRN PAIN MED GIVEN BY NIGHT NURSE. CONTINUES TO PROGRESS SLOWLY TOWARDS D/C GOALS. PATIENT HAS MIDLINE IN HIS LEFT AC. SITE WITHOUT REDNESS OR SWELLING. PATIENT CONTINUES ON IV ABT WITHOUT ADVERSE AFFECTS. CALL LIGHT IN REACH. PATIENT TURNED AND WEDGED Q2 HOURS. WILL CONTINUE TO MONITER.
[2020-08-17 19:24] VITALS: BP 145/53
[2020-08-18 07:34] VITALS: BP 137/61
--- NOTE | 2020-08-18 12:50 | NUR ---
ASSUMED CARE AT 0700. PT HAD AN UNEVENTFUL NIGHT AND SLEPT WELL. HE GOT UP CONFUSED AND EASILY REORIENTATED. STILL HAS PERIODS OF CONFUSION. DR HURST AND TOM CERTIFIED LEGAL INVESTIGATOR NOTED. BLOOD SUGAR CHECKED AND IS MEDICATED WITH INSULIN PER ORDER. PT REPORTED HAVING SACRAL WOUND SITE PAIN AT 8/10 AND MEDICATED WITH PERCOCET. PT PARTICIPATING IN THERAPY AND PLAN FOR DISCHARGE THIS WEEK. WOUND VAC IN PLACE AND IS FUNCTIONING WELL. [place] WITH WOUND CARE CHANGED DRESSING. CONT TO MONITOR.
--- NOTE | 2020-08-18 14:31 | NUR ---
WOUND CONSULT; I REMOVED THE DRESSING AND THERE WAS NO ODOR. THE PERIWOUND IMPROVES WITH EACH DRESSING CHANGE. THE WOUND MEASURES 4 X 2.5 X 4.3 TUNNELING OF 4.5 @12:00. NO S/S OF INFECTION. THE PATIENT WAS HELPFUL AND ANSWERED QUESTIONS APPROPRIATLY. DISCHARGE DAY IS Tuesday08/22/20. RECOMMENDATIONS; CONTINUE VAC THERAPY. RN PRESENT
[2020-08-18 15:18] LABS: URINE BILIRUBIN NEGATIVE (Negative); URINE BLOOD NEGATIVE (Negative); URINE CLARITY CLEAR; URINE COLOR YELLOW; URINE GLUCOSE-RANDOM* NEGATIVE (Negative); URINE KETONES NEGATIVE (Negative); URINE LEUKOCYTES-REFLEX NEGATIVE (Negative); URINE NITRITE-REFLEX NEGATIVE (Negative); URINE PROTEIN (DIPSTICK) TRACE (Negative); URINE UROBILINOGEN 0.2 E.U./dl (0.2-1.0)
[2020-08-18 15:53] LABS: HEMATOCRIT 30.5 % (42.0-52.0); MCH 29.8 pg (26.0-34.0); MCHC 32.6 g/dL (28.0-37.0); MCV 91.4 fL (80.0-100.0); RBC 3.34 mil/uL (4.50-6.00); RDW 15.7 % (10.5-14.5); WBC 12.8 thou/uL (4.0-11.0)
[2020-08-18 16:10] LABS: CALCIUM 9.8 mg/dL (8.5-10.1); CREATININE 1.3 mg/dL (0.7-1.3); POTASSIUM 4.1 mmol/L (3.5-5.1)
[2020-08-18 19:47] VITALS: BP 135/76
--- NOTE | 2020-08-19 04:08 | NUR ---
ASSESSMENT: PT REMAIN ALERT AND ORIENT TIMES THREE. C/O COCCYX PAIN, PRN PAIN MEDICATION GIVEN WITH PARTIAL RELIEF. TURNED EVERY TWO HOURS. UP IN CHAIR AT THE BEGINNING OF THE SHIFT. TOLERATING PO INTAKE. PLAN IS TO DC TO HOME ON TUESDAY, WILL HAVE A TEAM MEETING TODAY. WOUND VAC INTACT. SLOW PROGRESS TOWARDS DC GOALS, WILL CONTINUE TO MONITOR.
[2020-08-19 07:32] VITALS: BP 136/76
--- NOTE | 2020-08-19 08:46 | NUR ---
0700 ASSUMED CARE OF PATIENT, 0750 PATIENT SITTING UP IN CHAIR. PATIENT DENIES NEEDS. PATIENT WATCHING TV ASKING ABOUT PAIN PILL, WILL GIVE WHEN DUE. STATES BACK PAIN IN LOWER BACK IS A 8 ON PAIN SCALE. WILL CONTINUE TO OBSERVE
--- NOTE | 2020-08-19 12:43 | NUR ---
team meeting, reccommendation: dc 30th with [facility], wound vac in pt room already in dain of room. has home o2 already. need id to give orders if needing iv abx. to cont trainning with thearpy. possible [facility]. [facility] ( pt, ot ,st , nurse and sw ).
[2020-08-19 14:30] VITALS: BP 130/73
[2020-08-19 15:43] LABS: BE(vivo) 2.3 mmol/L (-2 to +3); HCO3 26.2 mmol/L (22.0-26.0); PCO2 38.2 mmHg (35.0-45.0); PO2 68.9 mmHg (80.0-100.0); pH 7.454 (7.360-7.450); sO2 94.6 % (92.0-98.0)
[2020-08-19 16:47] LABS: ABSOLUTE NEUTROPHILS 7.2 thou/uL (1.4-8.2); BASOPHILS 0.6 % (0.0-2.0); HEMOGLOBIN 11.1 gm/dL (14.0-18.0); LYMPHOCYTES 19.9 % (24.0-44.0); MCH 29.9 pg (26.0-34.0); MCHC 32.6 g/dL (28.0-37.0); MCV 91.7 fL (80.0-100.0); MONOCYTES 7.1 % (1.0-8.0); PLATELET COUNT 212 thou/uL (150-400); POLYS 70.4 % (36.0-66.0); RDW 15.4 % (10.5-14.5); WBC 10.2 thou/uL (4.0-11.0)
[2020-08-19 17:15] LABS: CALCIUM 9.7 mg/dL (8.5-10.1); CREATININE 1.3 mg/dL (0.7-1.3); MAGNESIUM 1.7 mg/dL (1.8-2.4); POTASSIUM 4.7 mmol/L (3.5-5.1)
--- NOTE | 2020-08-19 18:14 | NUR ---
PATIENT WORKED WITH PT TODAY AND OBSERVED AMB IN ROOM. AC BS CHECKED AND MEDICATED ORDERED. PATIENT CONFUSED AT TIMES. PATIENT SITTING ON SIDE OF BED FOR LUNCH. 1415 STAFF NOTIFIED DETAIL MAKER AND FITTER OF PATIENT FALL IN ROOM. UNCLEAR TO WHAT HAPPENED NO WITNESSES TO WALL. CEMETERY WARDEN HEARD A NOISE AND FOUND PATIENT ON FLOOR IN ROOM. PATIENT WAS ASSISTED TO CHAIR X3 ASSIST. PATIENT LATER TRANSFERED TO BED VIA LIFT. PATIENT LYING IN BED QUIETLY FALLING IN AND OUT OF SLEEP. STAFF ASKS PATIENT REGARDING FALL AND PATIENT UN ABLE TO ANSWER FALLING ASLEEP IN MID SPEECH. TOM NOTIFIED AND ORDERS RECIEVED. VS BP 130/73 P-124 RESP 26 TEMP 99.0 O2 SATS 90%. TOM AWARE OF TEMP. ARRIVED AND NOTIFED OF FALL. [address] VIA CART. PATIENT BACK TO ROOM WITH AT BEDSIDE. VS 1530 134/74 P 101 PATIENT CONFUSED . PATIENT AT 50% OF DINNER WITH ASSISTANCE. PATIENT AWAKE AND LYING IN BED. LEFT, BED ALARM ON AT THIS TIME
--- NOTE | 2020-08-19 19:50 | NUR ---
PT WAS FOUND ON THE FLOOR IN HIS ROOM, AFTER HEARING HIM ERIKA "OUCH" FROM THE NURSING STATION. PT WAS SITTING AT THE ON THE SIDE OFTHE BED EATING LUNCH, AND SAID HE WAS REACHING FOR SOMETHING ON HIS TRAY AND SLIPPED. PT STATES HE DID NOT HURT HIMSELF. MANAGER RECRUITMENT, NURSE SURGERY ASSISTANT, DIGITAL RESEARCH ANALYST, AND PT ALL NOTIFIED. . VS TAKEN, OTHER ORDERS GIVEN PER MANAGER RECRUITMENT (SEE CHART)
[2020-08-19 21:00] VITALS: BP 124/69
--- NOTE | 2020-08-20 04:04 | NUR ---
PATIENT APPRECIATES PAIN PILL WITH HIS OTHER PILLS AT HS. URGE INCONTINENCE ONCE THIS SHIFT, HE HOLLERED FOR HIS URINAL, BUT COULD NOT REACH IT IN TIME. STAFF IS TURNING PATIENT EVERY 2 HOURS TONIGHT AND ASKING IF HE CAN VOID AT THOSE TIMES, "NO" SO FAR. WOUND VAC INTACT AT 125 CC/HR
[2020-08-20 08:00] VITALS: BP 103/66
--- NOTE | 2020-08-20 10:12 | NUR ---
cm up at nursing station speaking with bedside nurse and KETTLE OPERATOR rt changed in physical and medical condition, low temp yesterday, not been on iv abx for few day and he will be getting new iv. cm cont to wear face mask and shield. ID MD will be up to see chitra. while talking his shannan came up for channeler runner to give her update on his condition. KETTLE OPERATOR and cm education on different options for home, hospice, and snf. chitra really wants to go home. tearful during conversation, active listing and support during visit. shannan wanted to talk with their kids before making any decision. cm showed her were she could visit in private in team room. will cont following as needed for dc needs.
[2020-08-20 11:11] LABS: HEMOGLOBIN 10.3 gm/dL (14.0-18.0); MCHC 33.1 g/dL (28.0-37.0); MCV 90.4 fL (80.0-100.0); RBC 3.43 mil/uL (4.50-6.00); RDW 15.4 % (10.5-14.5); WBC 6.8 thou/uL (4.0-11.0)
[2020-08-20 11:30] LABS: ALBUMIN 2.6 g/dL (3.4-5.0); CALCIUM 9.4 mg/dL (8.5-10.1); CREATININE 1.6 mg/dL (0.7-1.3); TOTAL BILIRUBIN 0.5 mg/dL (0.2-1.0); TOTAL PROTEIN 6.9 g/dL (6.4-8.2)
[2020-08-20 11:35] LABS: POTASSIUM 3.3 mmol/L (3.5-5.1)
[2020-08-20 11:42] LABS: URINE BILIRUBIN NEGATIVE (Negative); URINE BLOOD NEGATIVE (Negative); URINE CLARITY CLEAR; URINE COLOR YELLOW; URINE GLUCOSE-RANDOM* NEGATIVE (Negative); URINE KETONES NEGATIVE (Negative); URINE LEUKOCYTES-REFLEX NEGATIVE (Negative); URINE NITRITE-REFLEX NEGATIVE (Negative); URINE PROTEIN (DIPSTICK) NEGATIVE (Negative); URINE SPECIFIC GRAVITY >= 1.030 (1.005-1.035); URINE UROBILINOGEN 0.2 E.U./dl (0.2-1.0)
--- NOTE | 2020-08-20 11:42 | NUR ---
PT RESTARTED ON ABX, DISCUSSED MIDLINE WITH PT,RISKS AND BENEFITS. VERBALIZED UNDERSTANDING AND GAVE CONSENT FOR PLACEMENT. MJ CEPHALIC WAS WIDELY PATENT WITH USG. 4FR MIDLINE TRIMMED TO 15CM INSERTED TO 0CM WITH BRISK BR. ML RELEASED FOR IMMEDIATE USE PER PROTOCOL TO YE GRAMAJO. PT TOLERATED WELL
--- NOTE | 2020-08-20 12:39 | NUR ---
Nutrition followup: Pt continues to eat well, 75-100% of most meals, 100% supplements. Notified ensure enlive was substituted for ensure max which is currently out. Will assure pt receives glucerna instead. BG 76-172. Continues on lasix with significantly higher weights due to fluid. Wound vac continues per wound care to stage 3 sacral wound. Plan D/C 08/22. Low nutrition risk.
[2020-08-20 19:15] VITALS: BP 117/62
--- NOTE | 2020-08-20 19:59 | NUR ---
ASSUMED CARE OF PT AT 0700. PT IS A&OX3-4. SBP IN THE 100S THIS AM, HR OF 115, RR OF 24, AND TEMP OF 99.[address] CHRISTIANSON NOTIFIED AND NEW ORDERS ENTERED. MIDLINE PLACED BY IV TEAM TO RUE. AT BEDSIDE MOST OF SHIFT. DISCUSSIONS ABOUT D/C TO HOME WITH PALLIATIVE CARE. CM TALKED WITH ON PHONE THIS AFTERNOON. SAYS SHE WILL TALK WITH CHILDREN TONIGHT AND WILL DISCUSS FURTHER IN AM. FALL PRECAUTIONS IN PLACE AND NURSING WILL CONTINUE TO MONITOR.
--- NOTE | 2020-08-20 22:00 | NUR ---
TURNED TO RIGHT SIDE WITH ASSIST, LOW AIR LOSS THERAPY CONTINUES. WET TO DRY DRESSING REDONE WITH 2 GAUZE 4 BY 4 COVERED WITH AN ABD AND PAPER TAPE. USING URINAL WITH ASSIST AFTER PROMPTING/ASKING IF HE COULD FOR 425 CC CLEAR SUZANNA URINE. DR CHRISTIANSON HERE TO EVAL PATIENT, AWARE OF TEMP, NOT ORIENTED TO DATE AD THAT HE STILL HOPES TO GO HOME ON TUESDAY. ANTIBIOTICS THROUGH RECENTLY PLACED RIGHT UPPER ARM MIDLINE.
[2020-08-21 08:36] VITALS: BP 114/51
--- NOTE | 2020-08-21 10:00 | NUR ---
cm visited with shannan outside the room, she was tearful. active listing and support during visit. cm provided senior blue book, hospice section, [facility], [facility], and [facility] discussed. report she wanted to talk with dr fontenot 1st, then if that did not work out then [facility] would be 2nd choice. cm and fruit buyer offered to visit with chitra and his at bedside rt dcp home and possible hospice vs palliative care. cm sent message to dr fontenot. shannan stated no i will talk with him alone. will cont following as needed for dc needs.
--- NOTE | 2020-08-21 12:25 | NUR ---
PAGED DR. CHRISTIANSON DUE TO PT HAVING AN ELEVATED TEMP 100.9.
--- NOTE | 2020-08-21 18:07 | NUR ---
ASSUMED CARE OF PT AT 0700. PT IS A&OX3-4, CONFUSED AT TIMES AND HAS PERIODS OF INAPPROPRIATE BEHAVIOR. TEMPERATURE ELEVATED THIS AM AND AT LUNCH INCREASED TO 100.9 WITH PT SHIVERING AND REPORTING MUSCLE ACHES, TYLENOL ADMINISTERED AT THAT TIME, TEMP 99.[address] CHRISTIANSON NOTIFIED. ACCU CHECKS ACHS. DR COHEN CONSULTED FOR HOSPICE. PT RECEPTIVE TO HOSPICE AT THIS TIME. WOUND TO SACRUM CHANGED BY RUG UNDERLAY MACHINE OPERATOR WITH SUPERVISION BY NURSING STAFF. MIDLINE TO RIGHT UPPER ARM PATENT, NO REDNESS, DRAINAGE, OR EDEMA NOTED. FALL PRECAUTIONS IN PLACE AND NURSING WILL CONTINUE TO MONITOR.
[2020-08-21 19:20] VITALS: BP 127/65
--- NOTE | 2020-08-22 03:49 | NUR ---
ASSUMED CARE APPROX 1899 EVENING 08/21. PT LYING IN BED WITH HEAD OF BED ELEVATED RESTING. 02 AT 4L PER N/C. PT SOMEWHAT CONFUSED AND FORGETFUL YET PLEASANT. PT GIVEN PO MEDS WHOLE TOLERATING WELL. PT VOIDING PER URINAL. PT APPEARS TO BE SLEEPING SOUNDLY WITH HOURLY ROUNDING CHECKS. BED ALARM ON AND CALL LIGHT IN REACH. WILL CONTINUE TO MONITOR.
[2020-08-22 06:34] LABS: BASOPHILS 0.6 % (0.0-2.0); EOSINOPHILS 8.1 % (0.0-3.0); HEMATOCRIT 30.2 % (42.0-52.0); HEMOGLOBIN 9.9 gm/dL (14.0-18.0); MCH 29.8 pg (26.0-34.0); MCHC 32.8 g/dL (28.0-37.0); MCV 90.8 fL (80.0-100.0); MONOCYTES 11.1 % (1.0-8.0); PLATELET COUNT 220 thou/uL (150-400); POLYS 45.2 % (36.0-66.0); RBC 3.32 mil/uL (4.50-6.00); RDW 15.9 % (10.5-14.5); WBC 4.5 thou/uL (4.0-11.0)
[2020-08-22 06:50] LABS: ALBUMIN 2.1 g/dL (3.4-5.0); CALCIUM 9.8 mg/dL (8.5-10.1); CREATININE 1.3 mg/dL (0.7-1.3); POTASSIUM 3.4 mmol/L (3.5-5.1); TOTAL BILIRUBIN 0.3 mg/dL (0.2-1.0); TOTAL PROTEIN 6.8 g/dL (6.4-8.2)
[2020-08-22 07:35] VITALS: BP 133/60
--- NOTE | 2020-08-22 09:14 | NUR ---
spoke with data solutions architect and shannan , and chitra. they wanting home with palliative care and hh. needing to know if medicare will cover wheel chair and hospital bed for home, if not is needing to know how much to rent a hospital bed. spoke with [facility], they no longer have palliative, just hospice. family 2nd choice for palliative would be [facility]. referral sent to [facility] for wheel chair and bed. referral sent to [place] per cm team.
[2020-08-22] MEDS ORDERED: TYLENOL EXTRA500 MG PO ×2 (13:18→14:02)
[2020-08-22] MEDS ORDERED: VOLTAREN GEL 1100 G2 TOP (13:18)
[2020-08-22] MEDS ORDERED: LANTUS100 UNIT/M SUBQ (13:18)
[2020-08-22] MEDS ORDERED: SINGULAIR 10 MG10 M1 PO ×2 (13:18→13:58)
[2020-08-22] MEDS ORDERED: ELIQUIS5 MG PO ×2 (13:18→13:58)
[2020-08-22] MEDS ORDERED: LIDOPATCH1 EACH TRANSDERM (13:18)
[2020-08-22] MEDS ORDERED: MUCINEX600 MG PO ×2 (13:18→13:58)
[2020-08-22] MEDS ORDERED: PULMICORT0.5 MG/22 INH ×3 (13:18→16:02)
[2020-08-22] MEDS ORDERED: NOVOLOG100 UNIT/1 SUBQ (13:18)
[2020-08-22] MEDS ORDERED: IPRAT-ALBUT 0.5-3 ML INH ×2 (13:18)
[2020-08-22] MEDS ORDERED: LASIX 40 MG TAB40 M2 PO (13:18)
[2020-08-22] MEDS ORDERED: LEVOFLOXACIN750 MG PO (13:21)
[2020-08-22] MEDS ORDERED: PROTONIX40 M2 PO (14:02)
[2020-08-22] MEDS ORDERED: VITAMIN D310 MC3 PO (14:02)
[2020-08-22] MEDS ORDERED: SEROQUEL 50 MG50 MG PO (14:02)
[2020-08-22 14:20] VITALS: BP 141/67
[2020-08-22 15:07] VITALS: BP 96/61
[2020-08-22 17:01] VITALS: BP 96/61
--- NOTE | 2020-08-22 17:13 | NUR ---
FAXED DC ORDERS/SUMMARY TO [facility] RECEIVED CONFIRMATION AND THEY WILL NOTIFY PT TIME OF VISITS. FAXED DC ORDERS/SUMMARY TO [facility] FOR PALLIATIVE CARE RECEIVED CONFIRMATION.
--- NOTE | 2020-08-22 19:13 | NUR ---
ASSUMED CARE OF PT AT 0700. PT IS A&OX4 AND VITAL SIGNS ARE STABLE. PT DENIES PAIN. PLANS FOR DISCHARGE HOME WITH HOME HEALTH AND PALLIATIVE CARE TODAY. AT THE BEDSIDE THIS SHIFT. TOOK MOST BELONGINGS HOME WHEN SHE LEFT UNIT THIS AFTERNOON, REMAINDER SENT WITH PT AT TIME OF DISCHARGE. DRESSING TO SACRUM CHANGED BY NURSING STUDENTS UNDER NURSING SUPERVISION. MIDLINE REMOVED PRIOR TO DISCHARGE BY NURSING STUDENTS UNDER NURSING SUPERVISION. ACCU CHECKS [facility]. MEDICAL TRANSPORT ON UNIT AT 1830 AND PT LEFT UNIT AT 1900. DISCHARGE INSTRUCTIONS, MEDICATIONS, WOUND CARE, AND F/U APPOINTMENTS REVIEWED WITH PT AT TIME OF DISCHARGE, PACKET SENT HOME WITH PT.
[2020-08-25] MEDS ORDERED: MUCINEX600 MG PO (13:30)
[2020-08-25] MEDS ORDERED: PROTONIX40 M2 PO (13:30)
[2020-08-25] MEDS ORDERED: MIRALAX119 GM PO (13:30)
[2020-08-25] MEDS ORDERED: VITAMIN D310 MC3 PO (13:30)
[2020-08-25] MEDS ORDERED: SINGULAIR 10 MG10 M1 PO (13:30)
[2020-08-25] MEDS ORDERED: SEROQUEL 50 MG50 MG PO (13:30)
[2020-08-25] MEDS ORDERED: VITAMIN C500 M1 PO (13:30)
[2020-08-25] MEDS ORDERED: ZINC SULFATE220 MG PO (13:30)
[2020-08-25] MEDS ORDERED: SENNA PLUS TAB1 EACH PO (13:30)
[2020-08-25] MEDS ORDERED: TYLENOL EXTRA500 MG PO (13:30)
[2020-08-25] MEDS ORDERED: MAGNESIUM400 MG PO (13:30)
[2020-08-25] MEDS ORDERED: VOLTAREN GEL 1100 G2 TOP (13:30)
[2020-08-25] MEDS ORDERED: ELIQUIS5 MG PO (13:30)
== END 2020-08-22 19:33 | disposition home health service (06) | DRG 91 ==
PROVIDERS: Internal Medicine; Nurse Practitioner; Nurse Practitioner Family; Specialist; ADMIT Physical Medicine & Rehabilitation; ATTEND Physical Medicine & Rehabilitation
PROC: 05HC33Z Insertion of Infusion Device into Left Basilic Vein, Percutaneous Approach (ICD-10-PCS; principal; 2020-08-15)
PROC: B54MZZA Ultrasonography of Right Upper Extremity Veins, Guidance (ICD-10-PCS; 2020-08-20)
PROC: 05HD33Z Insertion of Infusion Device into Right Cephalic Vein, Percutaneous Approach (ICD-10-PCS; 2020-08-20)
DX: G72.81 Critical illness myopathy (principal); L89.153 Pressure ulcer of sacral region, stage 3; G93.41 Metabolic encephalopathy; A41.9 Sepsis, unspecified organism; J96.20 Acute and chronic respiratory failure, unspecified whether with hypoxia or hypercapnia; E43 Unspecified severe protein-calorie malnutrition; Z68.42 Body mass index [BMI] 45.0-49.9, adult; J44.9 Chronic obstructive pulmonary disease, unspecified; G47.33 Obstructive sleep apnea (adult) (pediatric); E11.22 Type 2 diabetes mellitus with diabetic chronic kidney disease; I25.10 Atherosclerotic heart disease of native coronary artery without angina pectoris; N18.30 Chronic kidney disease, stage 3 unspecified; I12.9 Hypertensive chronic kidney disease with stage 1 through stage 4 chronic kidney disease, or unspecified chronic kidney disease; E11.43 Type 2 diabetes mellitus with diabetic autonomic (poly)neuropathy; K31.84 Gastroparesis; G89.29 Other chronic pain; I27.20 Pulmonary hypertension, unspecified; M19.011 Primary osteoarthritis, right shoulder; N40.0 Benign prostatic hyperplasia without lower urinary tract symptoms; E55.9 Vitamin D deficiency, unspecified; E66.01 Morbid (severe) obesity due to excess calories; F43.10 Post-traumatic stress disorder, unspecified; F01.50 Vascular dementia, unspecified severity, without behavioral disturbance, psychotic disturbance, mood disturbance, and anxiety; R31.9 Hematuria, unspecified; E87.6 Hypokalemia; Z88.0 Allergy status to penicillin; Z88.6 Allergy status to analgesic agent; Z87.440 Personal history of urinary (tract) infections; Z88.8 Allergy status to other drugs, medicaments and biological substances; Z91.010 Allergy to peanuts; Z87.891 Personal history of nicotine dependence; Z86.718 Personal history of other venous thrombosis and embolism; Z99.81 Dependence on supplemental oxygen; Z23 Encounter for immunization
CPT/HCPCS: 10112; 27000

== ENCOUNTER → 2020-09-29 | Outpatient (CLI) | payer OTHER ==
[~2020-09-29] MED LIST changes: +HUMALOG100 UNIT/1 SUBQ; +IPRAT-ALBUT 0.5-3 ML INH; +LANTUS SUBQ; +LANTUS100 UNIT/M SUBQ; +LASIX 40 MG TAB40 M2 PO; +LEVOFLOXACIN750 MG PO; +LIDOPATCH1 EACH TRANSDERM; +MERREM1 GM IV; +METHOCARBAMOL500 M2 PO; +MUCINEX600 MG PO; +NYSTATIN100000 UNI SW&SWALLOW; +PREDNISONE 20 M20 M1 PO; +PULMICORT0.5 MG/22 INH; +TYLENOL EXTRA500 MG PO; +VOLTAREN GEL 1100 G2 TOP
== END ==
LOC: HYPER 07:48
PROVIDERS: ATTEND Emergency Medicine Emergency Medical Services
DX: E11.622 Type 2 diabetes mellitus with other skin ulcer (principal); L89.153 Pressure ulcer of sacral region, stage 3; L98.491 Non-pressure chronic ulcer of skin of other sites limited to breakdown of skin; E11.40 Type 2 diabetes mellitus with diabetic neuropathy, unspecified; E66.01 Morbid (severe) obesity due to excess calories; E43 Unspecified severe protein-calorie malnutrition; R54 Age-related physical debility; I25.10 Atherosclerotic heart disease of native coronary artery without angina pectoris; I10 Essential (primary) hypertension; I27.20 Pulmonary hypertension, unspecified; J44.9 Chronic obstructive pulmonary disease, unspecified; K21.9 Gastro-esophageal reflux disease without esophagitis; M19.90 Unspecified osteoarthritis, unspecified site; F41.9 Anxiety disorder, unspecified; F32.9 Major depressive disorder, single episode, unspecified; Z68.41 Body mass index [BMI] 40.0-44.9, adult; Z79.4 Long term (current) use of insulin; Z74.09 Other reduced mobility; Z87.891 Personal history of nicotine dependence

== ENCOUNTER → 2020-10-13 | Outpatient (CLI) | payer OTHER, BC | LOC: HYPER 08:15 | PROVIDERS: ATTEND Emergency Medicine Emergency Medical Services | DX: E11.622 Type 2 diabetes mellitus with other skin ulcer (principal); L89.153 Pressure ulcer of sacral region, stage 3; L98.491 Non-pressure chronic ulcer of skin of other sites limited to breakdown of skin; E11.40 Type 2 diabetes mellitus with diabetic neuropathy, unspecified; E43 Unspecified severe protein-calorie malnutrition; R54 Age-related physical debility; K21.9 Gastro-esophageal reflux disease without esophagitis; N40.0 Benign prostatic hyperplasia without lower urinary tract symptoms; M19.90 Unspecified osteoarthritis, unspecified site; I25.10 Atherosclerotic heart disease of native coronary artery without angina pectoris; J44.9 Chronic obstructive pulmonary disease, unspecified; I27.20 Pulmonary hypertension, unspecified; E66.01 Morbid (severe) obesity due to excess calories; F32.9 Major depressive disorder, single episode, unspecified; F41.9 Anxiety disorder, unspecified; Z68.41 Body mass index [BMI] 40.0-44.9, adult; Z74.09 Other reduced mobility; Z87.891 Personal history of nicotine dependence; Z99.81 Dependence on supplemental oxygen; Z79.4 Long term (current) use of insulin ==

== ENCOUNTER → 2020-11-03 | Outpatient (CLI) | payer OTHER, BC | LOC: HYPER 07:50 | PROVIDERS: ATTEND Emergency Medicine Emergency Medical Services | DX: E11.622 Type 2 diabetes mellitus with other skin ulcer (principal); L89.153 Pressure ulcer of sacral region, stage 3; L98.491 Non-pressure chronic ulcer of skin of other sites limited to breakdown of skin; E11.40 Type 2 diabetes mellitus with diabetic neuropathy, unspecified; E43 Unspecified severe protein-calorie malnutrition; R54 Age-related physical debility; K21.9 Gastro-esophageal reflux disease without esophagitis; N40.0 Benign prostatic hyperplasia without lower urinary tract symptoms; I25.10 Atherosclerotic heart disease of native coronary artery without angina pectoris; I10 Essential (primary) hypertension; I27.20 Pulmonary hypertension, unspecified; E66.01 Morbid (severe) obesity due to excess calories; J44.9 Chronic obstructive pulmonary disease, unspecified; M19.90 Unspecified osteoarthritis, unspecified site; F32.9 Major depressive disorder, single episode, unspecified; F41.9 Anxiety disorder, unspecified; Z68.41 Body mass index [BMI] 40.0-44.9, adult; Z74.09 Other reduced mobility; Z87.891 Personal history of nicotine dependence; Z79.4 Long term (current) use of insulin ==